=== PATIENT | female | born 1945 | race Caucasian/White ===

== ENCOUNTER 2022-05-30 16:21 | Emergency (ER) | payer MEDICARE, OTHER, SELFPAY ==
--- NOTE | ~2022-05-30 | XR_ITS ---
EXAM: XR abdomen/kub 1V DATE: 05/30/2022 17:01 HISTORY: rt side pain . COMPARISON: None available. FINDINGS: Senescent change and bibasilar lung scarring. Anastomotic sutures project over the pelvis. Normal bowel gas pattern. No organomegaly. Coarse calcification projecting over the mid right abdome n may represent gallstones. Multiple calcifications project over the renal shadows. Pelvic phlebolith s and vascular calcification. Lumbar scoliosis. Severe degenerative change in the lumbar spine. Mild bilateral hip osteoarthritis. IMPRESSION: No radiographic evidence of obstruction or ileus. Multiple opacifications project over th e renal shadows, which may represent nephroliths, or unrelated calcifications/artifact. Reviewed, dictated and finalized at location [facility]. IMPRESSION: No radiographic evidence of obstruction or ileus. Multiple opacific ations project over the renal shadows, which may represent nephroliths, or unre lated calcifications/artifact.
[2022-05-30 16:30] VITALS: BP 162/64; PULSE 77; RESP 20; TEMP 36.3; O2SAT 97
--- NOTE | 2022-05-30 17:26 | ED.GENADULT ---
HPI - General Adult General Chief complaint: Back Pain/Injury Stated complaint: back pain Source: patient Mode of arrival: ambulatory Limitations: no limitations History of Present Illness HPI narrative: Patient presents for evaluation of right flank pain since yesterday. Pain is constant, stabbing, progressively worse since the time of symptom onset, rated 9 out of 10 in severity. No radicular component. Denies any abdominal pain. She has experienced nausea without vomiting. She believes she might have a little bit of urinary hesitancy but denies any dysuria, hematuria, frequency, urgency. No fever or chills. No history of kidney stones. She initially thought it may be the start of an episode of sciatica. However she has had sciatica in the past and current symptoms are not consistent with those previously experienced with sciatica. She has a hx of lung cancer s/p radiation. States her last CT showed stability of area of concern. She is anticoagulated with coumadin for atrial fibrillation. She is on 4mg three times per week and 6mg four times per week. States her last INR was about two weeks ago and was 2.7. No additional complaints or concerns. Related Data Home Medications Medication Instructions Recorded Confirmed acetaminophen 325 mg tablet 325 mg PO Q6H PRN Mild Pain (Scale 08/31/19 05/30/22 Score 1-4) aspirin 81 mg chewable tablet 81 mg PO DAILY 08/31/19 05/30/22 warfarin 4 mg tablet 4 mg PO DAILY 08/31/19 05/30/22 pyridostigmine bromide 60 mg tablet 60 mg PO BID 11/14/20 05/30/22 Allergies Allergy/AdvReac Type Severity Reaction Status Date / Time atorvastatin Allergy Unknown unspecified Verified 05/30/22 16:35 codeine Allergy Unknown Tachycardia Verified 05/30/22 16:35 levofloxacin Allergy Unknown Stomach Verified 05/30/22 16:35 cramps Penicillins Allergy Unknown Anaphylaxis Verified 05/30/22 16:35 Review of Systems Review of Systems: CONSTITUTIONAL: Denies fever, chills, or sweats. EYES: Denies visual changes, redness, or discharge. ENT: Denies rhinorrhea, congestion, sore throat, or otalgia. CARDIOVASCULAR: Denies chest pain, palpitations, or edema. RESPIRATORY: Denies cough or dyspnea. GASTROINTESTINAL: Denies abdominal pain, nausea, vomiting, or diarrhea. GENITOURINARY: Reports urinary hesitancy. Denies dysuria, frequency, urgency or hematuria. SKIN: Denies rash or itching. MUSCULOSKELETAL: Reports right flank pain. Denies joint pain or myalgia. NEUROLOGIC: Denies headache, numbness, dizziness, or weakness. PSYCHIATRIC: Denies anxiety or depression. [facility] Past Medical History Medical History (Updated 05/30/22 @ 18:18 by FAIZAN Mckeon, ) Arthritis of hip Atrial fibrillation Hyperlipidemia Hypothyroidism Kidney stone Lung cancer Mitral valve prolapse Syncope Vitamin D deficiency Surgical History Surgical History History of mitral valve replacement Family History Family History Mother Family history of thyroid disease Patient's mother is , Onset Age: 78 Family history of malignant neoplasm Family history of Alzheimer's disease Father Diabetes mellitus Family history of malignant neoplasm, Onset Age: 62 Social History Social History Smoking packs per day: 0.75 Smoking cigarettes per day: 15.0 Smoking status: Current every day smoker Alcohol intake: never Substance use: never Living arrangements: with family Gender identity (if verbalized by the patient): Female Sexual Orientation (if Verbalized by the Patient): Straight or Heterosexual Spiritual care concerns: No Exam Narrative: GENERAL: Well-appearing but visibly uncomfortable. Well-nourished, and in no acute distress. HEAD: Normocephalic, atraumatic. EYES: PERRLA and EOMI. ENT: Nares cl
== END 2022-05-30 18:30 | disposition home or self-care (01) ==
PROVIDERS: Emergency Provider Nurse Practitioner; PCP Family Medicine
DX: N20.0 Calculus of kidney (principal); F17.210 Nicotine dependence, cigarettes, uncomplicated; M16.9 Osteoarthritis of hip, unspecified; I48.91 Unspecified atrial fibrillation; E78.5 Hyperlipidemia, unspecified; E03.9 Hypothyroidism, unspecified; I34.1 Nonrheumatic mitral (valve) prolapse; Z85.118 Personal history of other malignant neoplasm of bronchus and lung; Z95.2 Presence of prosthetic heart valve; Z79.01 Long term (current) use of anticoagulants; Z79.82 Long term (current) use of aspirin
CPT/HCPCS: 74018; 81003; 99213; G0463

== ENCOUNTER 2022-09-16 12:33 | Outpatient (CLI) | payer MEDICARE, OTHER, SELFPAY ==
[2022-09-16 20:57] LABS: Creatinine Urine 63.7 mg/dL
[2022-09-16 21:01] LABS: MALB Creatinine Ratio 174.6 mg/g (0-30); Microalbumin Urine Random 111.2 mg/L (0-16.7)
[2022-09-16 21:29] LABS: Alanine Aminotransferase 18 U/L (6-35); Albumin Level 3.9 g/dL (3.5-5.1); Alkaline Phosphatase 131 U/L (38-126); Anion Gap 5 mmol/L (8-16); Aspartate Amino Transferase 45 U/L (14-36); Bilirubin,Total 0.7 mg/dL (0.2-1.3); Blood Urea Nitrogen 15 mg/dL (7-17); Calcium 9.6 mg/dL (8.4-10.2); Carbon Dioxide 30 mmol/L (22-30); Chloride 106 mmol/L (98-107); Cholesterol 239 mg/dL (0-200); Estimated Glomerular Filt Rate > 60; Glucose 98 mg/dL (65-110); HDL Direct 35 mg/dL; Potassium 4.8 mmol/L (3.4-5.0); Sodium 141 mmol/L (137-145); Triglycerides 208 mg/dL (<150)
[2022-09-16 21:41] LABS: LDL Cholesterol Direct 144 mg/dL
[2022-09-16 21:58] LABS: Hemoglobin A1C 6.5 % (<5.7)
== END 2022-09-16 12:34 | disposition home or self-care (01) ==
LOC: ANHGOSHLAB 12:37
PROVIDERS: PCP Family Medicine; Visit Provider Nurse Practitioner
DX: E78.5 Hyperlipidemia, unspecified (principal); E11.43 Type 2 diabetes mellitus with diabetic autonomic (poly)neuropathy; Z95.4 Presence of other heart-valve replacement; E55.9 Vitamin D deficiency, unspecified
CPT/HCPCS: 36415; 80053; 80061; 82043; 82306; 83036

== ENCOUNTER 2023-04-12 11:17 | Outpatient (CLI) | payer MEDICARE, OTHER, SELFPAY ==
[2023-04-12 19:36] LABS: Vitamin D 25 Hydroxy 58.2 ng/mL
[2023-04-12 19:43] LABS: Alanine Aminotransferase 18 U/L (6-35); Albumin Level 4.1 g/dL (3.5-5.1); Alkaline Phosphatase 153 U/L (38-126); Anion Gap 8 mmol/L (8-16); Aspartate Amino Transferase 33 U/L (14-36); Bilirubin,Total 0.7 mg/dL (0.2-1.3); Blood Urea Nitrogen 15 mg/dL (7-17); Calcium 9.7 mg/dL (8.4-10.2); Carbon Dioxide 30 mmol/L (22-30); Chloride 104 mmol/L (98-107); Cholesterol 213 mg/dL (0-200); Estimated Glomerular Filt Rate 54; Glucose 104 mg/dL (65-110); HDL Direct 31 mg/dL; Sodium 142 mmol/L (137-145); Triglycerides 192 mg/dL (<150)
[2023-04-12 19:54] LABS: LDL Cholesterol Direct 139 mg/dL
[2023-04-12 20:08] LABS: Thyroid Stimulating Hormone 0.042 uIU/mL (0.465-4.680)
[2023-04-12 20:32] LABS: Hematocrit 49.1 % (37.0-47.0); Hemoglobin 15.6 g/dL (12.0-15.0); Immature Platelet Fraction Pct 17.8 % (0.9-11.2); Mean Corpuscular HGB Conc 31.8 g/dl (32-36); Mean Corpuscular Volume 97.4 fl (80-100); Mean Platelet Volume 13.7 fl (7.4-10.4); Platelet Count Result 197 k/mm3 (150-375); Red Blood Count 5.04 M/mm3 (4.2-5.4); Red Cell Distribution Width 14.3 % (11.5-14.5); White Blood Count 9.6 K/mm3 (4.5-10.0)
[2023-04-12 20:36] LABS: Creatinine Urine 60.6 mg/dL
[2023-04-12 20:48] LABS: Hemoglobin A1C 6.6 % (<5.7)
[2023-04-12 22:16] LABS: Microalbumin Urine Random 331.5 mg/L (0-16.7)
== END 2023-04-12 11:18 | disposition home or self-care (01) ==
PROVIDERS: PCP Family Medicine; Visit Provider Nurse Practitioner
DX: Z00.00 Encounter for general adult medical examination without abnormal findings (principal); E11.43 Type 2 diabetes mellitus with diabetic autonomic (poly)neuropathy; E55.9 Vitamin D deficiency, unspecified
CPT/HCPCS: 36415; 80053; 80061; 82043; 82306; 83036; 84443; 85027; 85055

== ENCOUNTER → 2023-04-28 08:43 | Outpatient (CLI) | payer MEDICARE, OTHER, SELFPAY ==
--- NOTE | ~2023-04-28 | US_ITS ---
Abdominal Sonogram: Real-time sonographic imaging of the abdomen was performed. Clinical History: Abnormal serum enzyme levels Findings: The liver appears normal with no evidence of mass lesion or bile duct dilatation. Main por vamshi vein demonstrates normal direction of flow. The spleen is normal in size without evidence of foca l lesion. The gallbladder is well distended, and contains multiple small gallstones. No gallbladder wall thickening. The common bile duct measures 4 mm. The visualized pancreas, aorta, and IVC are unr emarkable. The right kidney measures 10.4 cm in length and the left kidney measures 11.7 cm. There is no hydronephrosis or renal calculus. Right lower pole renal cyst present. Renal echogenicity is in creased. Impression: Cholelithiasis. Increased renal echogenicity suggest chronic medical renal disease. Reviewed, dictated and finalized at [facility]. Impression: Cholelithiasis. Increased renal echogenicity suggest chronic medical renal disease.
== END ==
PROVIDERS: PCP Nurse Practitioner; Visit Provider Nurse Practitioner
DX: K80.20 Calculus of gallbladder without cholecystitis without obstruction (principal); R93.429 Abnormal radiologic findings on diagnostic imaging of unspecified kidney; R74.8 Abnormal levels of other serum enzymes
CPT/HCPCS: 76700

== ENCOUNTER 2023-06-13 10:00 | Outpatient (CLI) | payer MEDICARE, OTHER, SELFPAY ==
[2023-06-13 20:27] LABS: Thyroid Stimulating Hormone 0.389 uIU/mL (0.465-4.680)
== END 2023-06-13 10:01 | disposition home or self-care (01) ==
LOC: ANHGOSHLAB 10:02
PROVIDERS: PCP Nurse Practitioner; Visit Provider Nurse Practitioner
DX: E11.43 Type 2 diabetes mellitus with diabetic autonomic (poly)neuropathy (principal); R79.89 Other specified abnormal findings of blood chemistry
CPT/HCPCS: 36415; 84443

== ENCOUNTER 2023-07-11 07:54 | Outpatient (CLI) | payer MEDICARE, OTHER, SELFPAY ==
[2023-07-11 19:18] LABS: Thyroid Stimulating Hormone 0.514 uIU/mL (0.465-4.680)
== END 2023-07-11 07:55 | disposition home or self-care (01) ==
LOC: ANHGOSHLAB 07:56
PROVIDERS: PCP Nurse Practitioner; Visit Provider Nurse Practitioner
DX: E78.5 Hyperlipidemia, unspecified (principal); R79.89 Other specified abnormal findings of blood chemistry
CPT/HCPCS: 36415; 84443

== ENCOUNTER → 2023-09-08 09:39 | Outpatient (CLI) | payer MEDICARE, OTHER, SELFPAY ==
--- NOTE | ~2023-09-08 | XR_ITS ---
XR chest 2V DATE: 09/08/2023 10:10 INDICATION: Cough for 2 weeks. History of COPD, lung cancer. Smoker. TECHNIQUE: PA and lateral views COMPARISON: 05/17/2019 2 view chest FINDINGS: There is patchy infiltrate in the right mid and both lower lung zones suggesting bilateral pneumonia. Pulmonary edema is also a consideration. There is pulmonary vascular congestion and redist ribution. Heart size appears within normal range. Status post sternotomy/coronary artery bypass graft surgery. Left-sided dual-lead pacemaker with leads overlying right atrium and right ventricle. Aortic calcification. Diffuse osteopenia. IMPRESSION: Congestive changes and right mid and bilateral lower lung infiltrates; infiltrates may be due to pulmonary edema and/or pneumonia Reviewed, dictated and finalized at location [facility]. [facility]INE INSPECTOR IMPRESSION: Congestive changes and right mid and bilateral lower lung infiltrat es; infiltrates may be due to pulmonary edema and/or pneumonia
== END ==
PROVIDERS: PCP Nurse Practitioner; Visit Provider Nurse Practitioner
DX: R05.9 Cough, unspecified (principal); J44.9 Chronic obstructive pulmonary disease, unspecified; I48.91 Unspecified atrial fibrillation; Z85.118 Personal history of other malignant neoplasm of bronchus and lung; Z87.891 Personal history of nicotine dependence; R91.8 Other nonspecific abnormal finding of lung field
CPT/HCPCS: 71046

== ENCOUNTER 2024-02-01 08:32 | Outpatient (CLI) | payer MEDICARE, OTHER, SELFPAY ==
[2024-02-01 13:02] LABS: Alanine Aminotransferase 13 U/L (6-35); Alkaline Phosphatase 122 U/L (38-126); Anion Gap 4 mmol/L (4-12); Aspartate Amino Transferase 37 U/L (14-36); Bilirubin,Total 0.6 mg/dL (0.2-1.3); Blood Urea Nitrogen 14 mg/dL (7-17); Calcium 9.7 mg/dL (8.4-10.2); Carbon Dioxide 30 mmol/L (22-30); Chloride 107 mmol/L (98-107); Cholesterol 186 mg/dL (0-200); Estimated Glomerular Filt Rate > 60; Glucose 101 mg/dL (65-110); HDL Direct 35 mg/dL; Potassium 4.6 mmol/L (3.4-5.0); Sodium 141 mmol/L (137-145); Triglycerides 143 mg/dL (<150)
[2024-02-01 13:17] LABS: LDL Cholesterol Direct 131 mg/dL
[2024-02-01 13:27] LABS: Vitamin D 25 Hydroxy 66.3 ng/mL
[2024-02-01 13:30] LABS: Thyroid Stimulating Hormone 0.987 uIU/mL (0.465-4.680)
[2024-02-01 13:55] LABS: Hemoglobin A1C 5.9 % (<5.7)
[2024-02-01 13:59] LABS: Microalbumin Urine Random 110.7 mg/L (0-16.7)
[2024-02-01 14:07] LABS: Creatinine Urine 110.6 mg/dL; MALB Creatinine Ratio 100.1 mg/g (0-30)
== END 2024-02-01 08:33 | disposition home or self-care (01) ==
PROVIDERS: PCP Nurse Practitioner; Visit Provider Nurse Practitioner
DX: E78.5 Hyperlipidemia, unspecified (principal); E03.9 Hypothyroidism, unspecified; E11.43 Type 2 diabetes mellitus with diabetic autonomic (poly)neuropathy; E55.9 Vitamin D deficiency, unspecified
CPT/HCPCS: 36415; 80053; 80061; 82043; 82306; 83036; 84443

== ENCOUNTER 2024-06-15 08:23 | Outpatient (CLI) | payer MEDICARE, OTHER, SELFPAY ==
[2024-06-15 18:02] LABS: Hematocrit 43.4 % (37.0-47.0); Hemoglobin 13.7 g/dL (12.0-15.0); Mean Corpuscular HGB Conc 31.6 g/dl (32-36); Mean Corpuscular Hemoglobin 31.2 pg (26-34); Mean Corpuscular Volume 98.9 fl (80-100); Mean Platelet Volume 12.8 fl (7.4-10.4); Platelet Count Result 211 k/mm3 (150-375); Red Blood Count 4.39 M/mm3 (4.2-5.4); Red Cell Distribution Width 14.8 % (11.5-14.5); White Blood Count 8.5 K/mm3 (4.5-10.0)
[2024-06-15 18:03] LABS: Alanine Aminotransferase 17 U/L (6-35); Albumin Level 3.9 g/dL (3.5-5.1); Alkaline Phosphatase 142 U/L (38-126); Anion Gap 5 mmol/L (4-12); Aspartate Amino Transferase 32 U/L (14-36); Bilirubin,Total 0.4 mg/dL (0.2-1.3); Blood Urea Nitrogen 17 mg/dL (7-17); Calcium 9.6 mg/dL (8.4-10.2); Carbon Dioxide 31 mmol/L (22-30); Chloride 104 mmol/L (98-107); Cholesterol 202 mg/dL (0-200); Estimated Glomerular Filt Rate > 60; Glucose 101 mg/dL (65-110); HDL Direct 38 mg/dL; Potassium 4.4 mmol/L (3.4-5.0); Sodium 140 mmol/L (137-145); Triglycerides 132 mg/dL (<150)
[2024-06-15 18:15] LABS: LDL Cholesterol Direct 124 mg/dL
[2024-06-15 18:41] LABS: Creatinine Urine 77.4 mg/dL
[2024-06-15 18:44] LABS: MALB Creatinine Ratio 64.2 mg/g (0-30); Microalbumin Urine Random 49.7 mg/L (0-16.7)
[2024-06-15 18:47] LABS: Free T4 Free Thyroxine 1.59 ng/mL (0.78-2.19); Vitamin D 25 Hydroxy 72.9 ng/mL
[2024-06-15 21:01] LABS: Hemoglobin A1C 6.7 % (<5.7)
== END 2024-06-15 08:24 | disposition home or self-care (01) ==
PROVIDERS: PCP Nurse Practitioner; Visit Provider Nurse Practitioner
DX: I10 Essential (primary) hypertension (principal); E11.9 Type 2 diabetes mellitus without complications; E03.9 Hypothyroidism, unspecified; E55.9 Vitamin D deficiency, unspecified
CPT/HCPCS: 36415; 80053; 80061; 82043; 82306; 83036; 84439; 84443; 85027

== ENCOUNTER 2024-07-30 14:09 | Outpatient (CLI) | payer MEDICARE, OTHER, SELFPAY ==
[2024-07-30 20:27] LABS: Free T4 Free Thyroxine 1.37 ng/dL (0.78-2.19)
[2024-07-30 21:00] LABS: Thyroid Stimulating Hormone 0.705 uIU/mL (0.465-4.680)
== END 2024-07-30 14:10 | disposition home or self-care (01) ==
LOC: ANHGOSHLAB 14:11
PROVIDERS: PCP Nurse Practitioner; Visit Provider Nurse Practitioner
DX: E05.90 Thyrotoxicosis, unspecified without thyrotoxic crisis or storm (principal); R79.89 Other specified abnormal findings of blood chemistry
CPT/HCPCS: 36415; 84439; 84443

== ENCOUNTER 2024-10-24 09:01 | Outpatient (CLI) | payer MEDICARE, OTHER, SELFPAY ==
--- OUTSIDE RECORDS SUMMARY | 2024-10-24 09:41 | XMS_ITS | Encounter Summary ---
Author Organization [facility] Facility Care Team Providers Care Explosion Welder Name Role Phone Jessica Jerez Primary Care Provider [phone] Yoanna Lim LPN Unavailable [phone] Dexter Hines MD Primary Care Provider [phone] Jessica Jerez Primary Care Provider [phone] Dexter Hines MD Primary Care Provider [phone] Kaitlin Patterson MD Unavailable [phone] Dylon Cruz MD Unavailable [phone] Dylon Cruz MD Unavailable [phone] Dexter Hines MD Primary Care Provider [phone] Andriy Herndon MD PhD Unavailable [phone] Eder Jaffe MD Unavailable [phone] Wagner Villatoro MD Unavailable [phone] Fazal Baird MD Unavailable [phone] Fazal Cordero MD Primary Care Provider Hayden Miller DO Primary Care Provider [phone] Christopher Dubon MD Unavailable [phone] Wagner Villatoro MD Unavailable [phone] Eder Jaffe MD Unavailable Andriy Herndon MD PhD Unavailable Clifton De MD Unavailable Jacob Ko MD Unavailable [phone] Encounter Details Date Type Department Care Team (Latest Contact Info) Description 07/04/2018 Orders Only [facility] ProviderBairon MD [address] [place] [id number] Social History Tobacco Use Types Packs/Day Years Used Date Smoking Tobacco: Never Assessed Comments Unknown Sex and Gender Information Value Date Recorded Sex Assigned at Not on file Legal Sex Female 8:24 AM CDT Gender Identity Not on file Sexual Orientation Straight 04/11/2020 3: 04 PM CDT documented as of this encounter Plan of Treatment Not on file documented as of this encounter Procedures Procedure Name Priority Date/Time Associated Diagnosis Comments CARDIOLOGY REPORT 07/04/2018 12: 00 AM MEDICAL POLICY SPECIALIST documented in this encounter Results * CARDIOLOGY REPORT (07/04/2018 12:00 AM MEDICAL POLICY SPECIALIST) Anatomical Region Laterality Modality Other Narrative 07/04/2018 12:00 AM MEDICAL POLICY SPECIALIST Ordered by an unspecified provider. Historical Provider [facility] HANNA ESPARZA Final Result documented in this encounter Visit Diagnoses Not on filedocumented in this encounter Additional Health Concerns Infection Onset Date Last Indicated Resolved Time Ring Surveillance Comment:07/07/24 admitted to [facility] ring surveillance room. ML 07/12/24 negative [facility] result. ML 07/07/2024 07/07/2024 07/12/2024 1:[address] documented as of this encounter Care Teams Explosion Welder Relationship Specialty Start Date End Date Jessica Jerez PA [address] [place] [address] PCP - General Critical Care Med 07/06/18 11/21/18 Dexter Hines MD [address] [place] [address] PCP - General 11/22/18 12/21/18 Jessica Jerez PA [address] [place] [address] PCP - General Critical Care Med 12/22/18 01/22/19 Dexter Hines MD [address] [place] [address] PCP - General Internal Medicine 01/23/19 07/04/19 Dexter Hines MD [address] [place] [address] PCP - General 07/28/19 04/22/22 Fazal Cordero MD [address] [facility] [address] PCP - General Orthopedic Surgery 04/23/22 05/05/22 Hayden Miller DO [address] [place] [address] PCP - General Family Medicine 05/06/22 Yoanna Lim, LINEMAN [address] [place] [address] [employer] 07/06/18 07/06/18 Kaitlin Patterson MD [address] [place] [address] Aircraft Fueler Interventional Cardiology 05/22/19 08/11/23 Dylon Cruz MD [address] [place] [address] Music Library Assistant Medical Oncology 06/27/19 10/14/21 Dylon Cruz MD [address] [place] [address] Medical Oncologist/Hematologis t Medical Oncology 06/27/19 10/14/21 Andriy Herndon MD PhD [address] [place] [address] MEDICAL ONCOLOGY, [address] [address] Consulting Physician Medical Oncology 10/15/21 4 Eder Jaffe MD [address] [facility] [address] [place] [address] [place] [address] Consulting Physician Pulmonary Disease 10/15/21 Wagner Villatoro MD [facility] [facility] [address] [place] [address] [place] [address] Radiation Oncologist Radiation Oncology 10/21/21 Fazal Baird MD [address] [place] [address] Consulting Physician Cardiothoracic Surgery 10/21/21 Christopher Dubon MD [address] [facility] [address] [place] [address] [address] Consulting Physician Cardiology 08/12/23 Wagner Villatoro MD [address] [place] [address] Radiation Oncologist Radiation Oncology 10/25/23 Eder Jaffe MD [address] [facility] [address] [place] [address] [place] [address] Surgeon Pulmonary Disease 01/10/24 Andriy Herndon MD PhD [address] [place] [address] Consulting Physician Medical Oncology 05/22/24 Clifton De MD [address] [place] [id number] Consulting Physician Pain Management 05/25/24 Jacob Ko MD [address] [facility] [address] [place] [address] [address] Consulting Physician Cardiology 05/25/24 documented as of this encounter
--- OUTSIDE RECORDS SUMMARY | 2024-10-24 09:41 | XMS_ITS | Clinical Summary ---
Author Organization [facility] Address [address] [place] [address] Care Team Providers Care Mechanical Service Technician Name Role Phone Eder Jaffe MD Unavailable [phone] Fazal Baird MD Unavailable [phone] Hayden Miller DO Primary Care Provider [phone] Christopher Dubon MD Unavailable Wagner Villatoro MD Unavailable [phone] Eder Jaffe MD Unavailable [phone] Andriy Herndon MD PhD Unavailable [phone] Clifton De MD Unavailable Jacob Ko MD Unavailable [phone] Allergies Active Allergy Reactions Criticality Noted Date Comments Atorvastatin Muscle pain Medium 01/03/2019 Codeine Phosphate Palpitations Low 01/03/2019 Levofloxacin Stomach upset Low 07/02/2018 Midodrine Itching,Mental statu s changes Medium 05/23/2020 Penicillins Anaphylaxis High 10/07/2016 Anaphylaxis Quinine Sulfate Other (See comments) Low 01/03/2019 Reaction when pt. Was a kid mother told her to stay away from it Medications pantoprazole DR (PROTONIX) 40 mg EC tablet Take 1 tablet (40 mg total) by mouth daily with dinner Active aspirin 81 mg enteric coated tabletIndications :Hold until after biopsy and instructed to start by Interventional Radiology Take 1 tablet (81 mg total) by mouth daily with dinner Active calcium carbonate-vitamin D3 1,500 mg (600mg elemental) -800 unit per tablet Take 1 tablet by mouth daily Active polyethylene glycol (MIRALAX) 17 gram packetIndications :constipation Take 1 packet (17 g total) by mouth daily Active lancets 33 gauge [facility] OneTouch Delica Plus Lancet 33 gauge USE TO TEST ONCE A DAY Active blood glucose diagnostic (Silent Circle Verio test strips) stripIndications: Diabetes Mellitus,Patient should stop the med form in 2 days before the biopsy and restart 2 days after Active acetaminophen (TYLENOL) 325 mg tablet Take 1 tablet (325 mg total) by mouth every 4 (four) hours as needed for pain Active albuterol HFA (PROVENTIL HFA,VENTOLIN HFA,PROAIR HFA) 90 mcg/actuation inhaler Inhale 2 puffs every 6 (six) hours as needed for wheezing 1 each 10/05/192024 Active pyridoxine (VITAMIN B-6) 500 mg tablet Take 1 tablet (500 mg total) by mouth daily Active nebivoloL (BYSTOLIC) 5 mg tabletIndications :Atrial fibrillation, unspecified type (HCC),Essential hypertension,Pace maker,EKG abnormalities Take 1 tablet (5 mg total) by mouth daily 90 tablet 3 01/26/20 24 2024 Active levothyroxine (SYNTHROID) 88 mcg tablet Take 1 tablet (88 mcg total) by mouth cloth laminating supervisor before breakfast Active ezetimibe (ZETIA) 10 mg tablet Take 1 tablet (10 mg total) by mouth daily 30 tablet 11 07/18/20 24 2024 Active dexAMETHasone oral liquid 0.5 mg/5 mL Take 10 mL (1 mg total) by mouth 4 (four) times a day 200 mL 07/30/20 24 Active enoxaparin (LOVENOX) 60 mg/0.6 mL syringe Inject 0.6 mL (60 mg total) under the skin every 12 (twelve) hours starting 2 days before procedure, stopping 12 hours before procedures 12 mL 3 08/04/20 24 Active warfarin (COUMADIN) 5 mg tabletIndications :atrial fibrillation Take 1 tablet (5 mg total) by mouth daily 6mg Tuesday, Tuesday, and Tuesday and rest of the days 5mg 90 tablet 3 10/08/19 25 2025 Active warfarin (COUMADIN) 5 mg tabletIndications :atrial fibrillation Take 1 tablet (5 mg total) by mouth daily 30 tablet 07/11/20 24 2024 Discontinued Active Problems Problem Noted Date Diagnosed Date Acute pulmonary embolism, un specified pulmonary embolism type, unspecified whether acute cor pulmonale present 07/06/2024 SSS (sick sinus syndrome) (CMS/HCC) 05/22/2024 Personal history of radiation therapy 01/03/2024 History of lung cancer 08/11/2023 Mediastinal adenopathy 08/11/2023 Coronary artery disease invo lving northway coronary artery of northway heart without angina pectoris 07/03/2023 Orthostatic syncope 05/17/2023 Benign neoplasm of cerebral meninges 04/09/2022 Diverticulitis 12/14/2021 High cholesterol 12/14/2021 Abnormal PET scan of head 11/03/2021 Malignant neoplasm of upper lobe of right lung 0 11/03/2021 Cancer Staging:Clinical stage from 09/28/2023:Stage IIIA(rcT1b, cN2, cM0) - Signed by Wagner Villatoro MD on 09/28/2023 Malignant neoplasm of upper lobe, bronchus or kari ng 09/28/2021 Syncope and collapse 09/22/2021 Syncope 09/21/2021 EKG abnormalities 09/21/2021 Dependence on nicotine from cigarettes 2 Chest x-ray abnormality 09/21/2021 Inflammation of sacroiliac joint 04/01/2020 Polyneuropathy 09/20/2019 Polycythemia vera 05/21/2019 Pacemaker 02/20/2019 Assessment & Plan (09/02/2020 1:47 PM RETAIL BUSINESS DEVELOPMENT MANAGER): Check today shows normal function. Underlying rhythm controlled AFib. 20% V paced 100% mode switch. Assessment & Plan (09/04/2019 1:52 PM RETAIL BUSINESS DEVELOPMENT MANAGER): Underlying rhythm today 2-1 flutter ventricular rate 110 beats per minute. Histograms during mode switch show controlled rate 100% mode switch. Excellent lead function. No other arrhythmias. Battery 5 years Assessment & Plan (02/20/2019 3:10 PM CDT): Check today shows normal function. Better life 6 years excellent lead function. 6% V pacing Anticoagulation management encounter 02/20/2019 Assessment & Plan (09/02/2020 1:50 PM RETAIL BUSINESS DEVELOPMENT MANAGER): Continue Coumadin. No bleeding Assessment & Plan (09/04/2019 2:03 PM RETAIL BUSINESS DEVELOPMENT MANAGER): Continue Coumadin. Assessment & Plan (02/20/2019 3:11 PM CDT): Continue Coumadin for thromboembolic risk reduction Atrial fibrillation ([facility]) 12/07/2018 Assessment & Plan (09/02/2020 1:47 PM RETAIL BUSINESS DEVELOPMENT MANAGER): Persistent. Histogram show excellent rate control. Continue Bystolic continue Coumadin Assessment & Plan (09/04/2019 1:55 PM RETAIL BUSINESS DEVELOPMENT MANAGER): Permanent rate controlled. Would not make any efforts to achieve her maintain sinus rhythm Assessment & Plan (02/20/2019 3:10 PM CDT): Typical flutter ablated. Atypical flutter persistent and rate controlled by histograms Chronic kidney disease, stage III (moderate) Hypothyroidism 05/19/2018 Assessment & Plan (01/01/2020 1:53 PM CDT): Will check TSH and free T4 Will adjust dose of Levothyroxine accordingly . If there is a need to make changes, will recheck levels in 2-3 months. Instructions to patient on taking medication properly : in the morning, on an empty stomach , 1 h part from food and/or other meds. Assessment & Plan (09/11/2019 10:07 AM RETAIL BUSINESS DEVELOPMENT MANAGER): Goal of treatment is a TSH within range, around 1-4 Your goal of treatment is to keep TSH , T3 and T4 within normal range. Brand name is strongly recommended, due to the fact that different generics are not bioequivalent. Will check TFT's today and will adjust dose of LT4 accordingly; will send rx for Synthroid. I also explained to pt how , her hypothyroidism is not responsible for her fainting. Obesity (BMI 30.0-34.9) 05/19/2018 Type 2 diabetes mellitus wit h diabetic chronic kidney disease 05/19/2018 Assessment & Plan (01/01/2020 1:54 PM CDT): Off of meds Check hba1c, lipids, microalbumin Obstructive sleep apnea 12/27/2016 Overview (01/03/2019): obstructive sleep apnea on CPAP therapy. Assessment & Plan (11/02/2023 8:40 AM RETAIL BUSINESS DEVELOPMENT MANAGER): The patient continue to wear her CPAP at 12 cm water pressure while sleeping. Her DME is [employer]. They are going to bring the SmartCard to [employer] for a download. Assessment & Plan (10/27/2022 1:59 PM RETAIL BUSINESS DEVELOPMENT MANAGER): Due to the patient having difficulty with the mask leaking while she sleeps I will decrease the patient's CPAP pressure to 12 cm water pressure while sleeping. Her DME is [employer]. Assessment & Plan (10/26/2021 2:06 PM RETAIL BUSINESS DEVELOPMENT MANAGER): The patient will continue with CPAP therapy at 14 cm water pressure. Patient denied need for supplies. DME company [employer] Assessment & Plan (08/25/2021 1:38 PM RETAIL BUSINESS DEVELOPMENT MANAGER): Patient continue to wear her CPAP at 14 cm water pressure while sleeping. Her DME is [facility]. The patient is going to receive a new CPAP on Tuesday. Assessment & Plan (03/23/2021 9:16 AM CDT): The patient will continue with CPAP therapy at 14 cm water pressure to treat obstructive sleep apnea. I have ordered the patient a new CPAP machine at 14 cm water pressure with heated humidity and a full set of supplies. The DME is [facility] [employer]. The patient and I also discussed the nocturnal polysomnogram with split night protocol and an in-home nocturnal polysomnogram as an option if required by insurance to recertify for CPAP therapy. Both procedures were detailed in depth. The patient is agreeable to follow through with recommendation if required by insurance. Coronary atherosclerosis 03/12/2016 Essential hypertension 03/12/2016 Assessment & Plan (09/02/2020 1:50 PM RETAIL BUSINESS DEVELOPMENT MANAGER): Well controlled Assessment & Plan (02/20/2019 3:19 PM CDT): Likely having symptomatic hypotension at times. 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 Pacemaker confirms no arrhythmias. Again informed patient to check blood pressure on extended episodes. Polycythemia 06/06/2019 09/21/2021 Shortness of breath 01/03/2019 09/21/19 22 Encounters Date Type Department Care Team Description 09/05/2024 8:00 AM RETAIL BUSINESS DEVELOPMENT MANAGER Ancillary Procedure [facility] [address] [place] [address] Pacemaker; Permanent atrial fibrillation (CMS/HCC) ([facility]); SSS (sick sinus syndrome) (CMS/HCC) (HCC) 08/27/2024 Telephone [facility] [address] [place] [address] Kathy Donohue MD 08/27/2024 Anticoagulation Telephone Call [facility] [address] [place] [address] [phone] Kathy Donohue MD Atrial fibrillation (CMS/HCC) (HCC) (Primary Dx) 08/23/2024 7:55 AM RETAIL BUSINESS DEVELOPMENT MANAGER Lab [facility] [address] [place] [address] Permanent atrial fibrillation (CMS/HCC) (HCC) 08/13/2024 Telephone [facility] [address] [place] [address] [place] [address] [phone] Kathy Donohue MD 08/08/2024 Telephone [facility] [address] [place] [phone] Kathy Donohue MD 08/08/2024 Anticoagulation Visit [facility] [address] [place] [phone] Mildred Tapiasa DE Atrial fibrillation (CMS/HCC) (HCC) (Primary Dx) 08/07/2024 9:15 AM RETAIL BUSINESS DEVELOPMENT MANAGER Office Visit [facility] [address] [place] [address] [phone] Andriy Herndon MD PhD Squamous cell carcinoma lung, right (HCC) (Primary Dx) 08/07/2024 8:45 AM RETAIL BUSINESS DEVELOPMENT MANAGER Clinical Support [facility] at [address] [phone] Squamous cell carcinoma lung, right (HCC); Permanent atrial fibrillation (CMS/HCC) (HCC); Anticoagulation management encounter 08/07/2024 Telephone [facility] [address] [place] [phone] Cassie Mccollum CMA 08/04/2024 Orders Only [facility] [address] [place] [phone] Kathy Donohue MD 08/02/2024 Telephone [facility] [address] [place] [phone] Kathy Donohue MD [facility] 08/02/2024 Anticoagulation Visit [facility] [address] [place] [address] Christina Tapia MA Atrial fibrillation (CMS/HCC) ([facility]) (Primary Dx) 08/02/2024 Telephone [facility] [address] [place] [address] Kathy Donohue MD from Last 3 Months Immunizations Immunization Administration Dates Next Due Influenza, Quadrivalent, Hig h Dose, Preservative Free, Intrr 05/16/2020 Influenza, Quadrivalent, Spl it, Preservative Free, Intramuscular 06/05/2016,07/11/2015 Influenza, Trivalent, Preservative Free, Intramu scular 04/29/2015 Influenza, Unspecified 06/08/2007 Pneumococcal Conjugate PCV 13 06/22/2018 Pneumococcal Polysaccharide PPV23 09/26/2014 Tdap 06/22/2018 ZOSTER LIVE 10/11/2013 Surgical History Surgery Date Site/Laterality Comments APPENDECTOMY TUBAL LIGATION Bilateral CARDIAC ELECTROPHYSIOLOGY MAPPING AND ABLATION 08/29/2017 - 08/28/2018 Not successful. COLECTOMY Diverticulitis MITRAL VALVE REPLACEMENT 08/29/2014 - 08/28/2015 INSERT / REPLACE / REMOVE PACEMAKER 07/04/2018 [employer] CARDIAC CATHETERIZATION 08/29/2014 - 08/28/2015 PORT PLACEMENT CHEST >5 YEARS 10/17/2023 N/A CARDIAC SURGERY CATARACT EXTRACTION CORONARY ARTERY BYPASS GRAFT 2014 CARDIAC VALVE REPLACEMENT 2014 Medical History Medical History Date Comments Exercise hypoxemia Dyspnea CAD (coronary artery disease) Dyslipidemia Hypertension Hypothyroidism COPD (chronic obstructive pu lmonary disease) ([facility]) Mild. Well controlled. Doesn 't need inhaler. Hyperlipidemia Covid-2019 Lung cancer (HCC) 2021 s/p Radiation HL (hearing loss) CHF (congestive heart failur e) (CMS/HCC) (HCC) Mitral valve prolapse Diverticulitis of colon Depression Sleep apnea + CPAP Delayed emergence from general anesthesia Slow to wake after colonoscopy Motion sickness PONV (postoperative nausea and vomiting) 1957 After Appy Afib (CMS/HCC) ([facility]) Chronic. Ed jamestriston Hugo GERD (gastroesophageal reflux disease) Controlled with Protonix Constipation Type 2 diabetes mellitus ([facility]) c ontrolling with diet. Syncopal episodes Monthly. Andrew byrd Neuropathy. Has seen Neurology and completed autonomic testing. Controls with Compression stockings and increased salt intake. Neuropathy (CMS/[facility]) bilateral l egs. Leg cramps At high risk for falls Autoimmune disease ([facility]/HCC) ([facility]) 2019 Family History Medical History Relation Name Comments Thyroid disease Brother 1 Hearing loss Brother 2 David Hwang Heart attack Brother 2 David Hwang Cancer Father Vinis Diabetes Father Vinis Heart attack Father's Brother 1 Juana Hwang Heart attack Father's Brother 2 Leonidas Hwang Heart attack Father's Brother 3 Drake Hwang Hearing loss Maternal Grandfather Karthik Gabriel Alzheimer's disease Mother Anahi Thyroid disease Mother Anahi Heart attack Paternal Grandfather Fazal Hwang Alzheimer's disease Sister Marcy Cancer Sister Marcy Diabetes Sister Marcy Relation Name Status Comments Brother 1 Brother 2 David Hwang Father Vinis Father's Brother 1 Juana Hwang Father's Brother 2 Leonidas Hwang Father's Brother 3 Drake Hwang Maternal Grandfather Karthik Gabriel Mother Anahi Paternal Grandfather Fazal Hwang Sister Marcy Social History Tobacco Use Types Packs/Day Years Used Date Smoking Tobacco: Every Day Cigarettes 0.3 106.4 Started: 06/12/1971 Passive Smoke Exposure: Current Smokeless Tobacco: Never Tobacco Cessation:Ready to Q uit: Yes; Counseling Given: Not Answered Alcohol Use Standard Drinks/Week Comments Not Currently 0 (1 standard drink = 0.6 oz pur e alcohol) [facility] Utilities Answer Date Recorded In the past 12 months has [employer], gas, oil, or water OR Productivity threatened to shut off services in your home? No 07/09/2024 Social Connection and Isolat ion Panel [NHANES] Answer Date Recorded In a typical week, how many times do you talk on the phone with family, friends, or neighbors? More than three times a week 07/09/2024 How often do you get togethe r with friends or relatives? More than three times a week 07/09/2024 How often do you attend chur ch or religion services? More than 4 times per year 07/09/2024 Do you belong to any clubs o r organizations such as congregational groups, unions, fraternal or athletic groups, or school groups? No 07/09/2024 How often do you attend meet ings of the clubs or organizations you belong to? Never 07/09/2024 Are you , , di vorced, , never , or living with a partner? 07/09/2024 AUDIT-C Answer Date Recorded Q1: How often do you have a drink containing alcohol? Never 08/07/2024 Q2: How many drinks containi ng alcohol do you have on a typical day when you are drinking? Patient does not drink Frequency of Binge Drinking Not on file 07/29 Overall Financial Resource Strain (CARDIA) Answe r Date Recorded How hard is it for you to pa y for the very basics like food, housing, medical care, and heating? Not hard at all 07/09/2024 PHQ-2 Answer Date Recorded PHQ-2 Total Score (If total score is 3 or more points, staff should administer the PHQ-9) 0 01/01/2020 Hunger Vital Sign Answer Date Recorded Within the past 12 months, y ou worried that your food would run out before you got the money to buy more. Never true 07/09/20 24 Within the past 12 months, t he food you bought just didn't last and you didn't have money to get more. Never true 07/09/2024 PRAPARE - Transportation Answer Date Re corded In the past 12 months, has l ack of transportation kept you from medical appointments or from getting medications? No 06/29 In the past 12 months, has l ack of transportation kept you from meetings, work, or from getting things needed for daily living? No 07/09/2024 Housing Stability Vital Sign Answer Rodney e Recorded In the last 12 months, was t here a time when you were not able to pay the mortgage or rent on time? No 07/09/2024 In the past 12 months, how m any times have you moved where you were living? 0 07/09/2024 At any time in the past 12 m [facility], were you homeless or living in a correction (including now)? No 07/09/2024 Personal Safety Answer Date Recorded Have you ever been in or are you currently in a harmful physical or emotional relationship or is someone making you feel afraid or unsafe? Denies 07/06/2024 Comments No Sex and Gender Information Value Date Recorded Sex Assigned at Not on file Legal Sex Female 8:24 AM CDT Gender Identity Not on file Sexual Orientation Straight 04/11/2020 3: 04 PM CDT Obstetrics History Last Filed Vital Signs Vital Sign Reading Time Taken Comments Blood Pressure 146/85 08/07/2024 9:16 AM RETAIL BUSINESS DEVELOPMENT MANAGER Pulse 64 08/07/2024 9:16 AM RETAIL BUSINESS DEVELOPMENT MANAGER Temperature 36.7 C (98 F) 08/07/2024 9:16 AM RETAIL BUSINESS DEVELOPMENT MANAGER Respiratory Rate 18 08/07/2024 9:16 AM RETAIL BUSINESS DEVELOPMENT MANAGER Oxygen Saturation 95% 08/07/2024 9:16 AM RETAIL BUSINESS DEVELOPMENT MANAGER Inhaled Oxygen Concentration - - Weight 63.2 kg (139 lb 6.4 oz) 08/07/2024 9:16 A M RETAIL BUSINESS DEVELOPMENT MANAGER Height 149.9 cm (4' 11 ) 07/06/2024 5:18 PM RETAIL BUSINESS DEVELOPMENT MANAGER Body Mass Index 28.16 07/06/2024 5:18 PM RETAIL BUSINESS DEVELOPMENT MANAGER Plan of Treatment Health Maintenance Due Date Last Done Comments Hepatitis C Screening 1945 Osteoporosis Screening-Bone Density Scan 1945 Dilated Eye Exam 1945 Hepatitis B Screening 1965 Well Visit 65+ 2012 Zoster Vaccine (1 of 2) 12/06/2013 10/11/2013 Hemoglobin A1C 07/04/2020 01/02/2020, 04/30, 05/22/2018, Additional history exists Depression Screening 12/31/2020 01/01/2020, 09/11/19 20 Foot Exam 12/31/2020 01/01/2020 Albumin Creatinine Ratio, Urine 01/01/2021 0 Influenza Vaccine (#1) 2024 0, 06/05/2016, 07/11/2015, Additional history exists Lipid Panel 01/25/2025 01/26/2024, 08/0 11/2020, 01/02/2020, Additional history exists Fall Risk Assessment 07/11/2025 07/11/2024, 12/01/19 22 eGFR 08/07/2025 08/07/2024, 06/29, 07/11/2024, Additional history exists DTaP/Tdap/Td Vaccine (2 - Td or Tdap) 06/22/2028 06/22/2018 Pneumococcal vaccine 65+ Completed 06/22/2018, 08/30 Medical Devices Implanted Type Area Belt Cutter Device Identifier Shelf Expiration Date Model / Serial / Lot Lead (Rv)-07/04/2018 Implanted:01/2018 by Kaitlin Patterson MD (Quantity not on file) Lead Heart [employer] [id number] / [id number] / Lead (Ra)-07/04/2018 Implanted:01/2018 by Kaitlin Patterson MD (Quantity not on file) Lead Heart [employer] [id number]/45 / [id number] / Pacemaker-07/04-[employer] Implanted:01/2018 by Kaitlin Patterson MD (Quantity not on file) Pacemaker Left: Chest [employer] ESSENTIO [id number] / [id number] / Mitral Valve-06/24/20 15 Implanted:05/30 by Fazal Baird MD (Quantity not on file) Mitral Valve [employer] [id number] / [id number] / [employer] Xcela Power Port 8fr [id number] - [id number] Implanted:Qty: 1 on 10/17/[address] [facility] [employer] 07/02/2028 [id number] / / [id number] Procedures Procedure Name Priority Date/Time Associated Diagnosis Comments PROTIME-INR Routine 08/23/2024 8:06 AM RETAIL BUSINESS DEVELOPMENT MANAGER Permanent atrial fibrillation (CMS/HCC) (HCC) EGFR Routine 08/07/2024 8:51 AM RETAIL BUSINESS DEVELOPMENT MANAGER Squamous cell carcinoma lung, right (HCC) DIFFERENTIAL AUTO Routine 08/07/2024 8:5 1 AM RETAIL BUSINESS DEVELOPMENT MANAGER Squamous cell carcinoma lung, right (HCC) PROTIME-INR Routine 08/07/2024 8:51 AM RETAIL BUSINESS DEVELOPMENT MANAGER Permanent atrial fibrillation (CMS/HCC) (HCC) Anticoagulation management encounter CBC WITH AUTO DIFFERENTIAL Routine 08/07/2024 8:51 AM RETAIL BUSINESS DEVELOPMENT MANAGER Squamous cell carcinoma lung, right (HCC) COMPREHENSIVE METABOLIC PANEL Routine 08/07/2024 8:51 AM RETAIL BUSINESS DEVELOPMENT MANAGER Squamous cell carcinoma lung, right (HCC) LIPID PANEL Routine 01/26/2024 10:02 AM CDT Coronary artery disease involving northway coronary artery of northway heart without angina pectoris Dyslipidemia HEMOGLOBIN A1C Routine 01/02/2020 7:36 AM CDT Type 2 diabetes mellitus with stage 3 chronic kidney disease, without long-term current use of insulin ([facility]/HCC) ALBUMIN CREATININE RATIO, URINE Routine 01/02/2020 7:36 AM CDT from Last 3 Months or Most Recently Relevant to Health Maintenance Results * (ABNORMAL) Protime-INR (08/23/2024 8:06 AM RETAIL BUSINESS DEVELOPMENT MANAGER) PT 28.4(H) 12.0 - 14.6 sec Comment: Ref Range High Testing performed by: [facility], [address] [place] [address]., [id number] INR 2.7(H) 0.9 - 1.2 FRANCISCO MERINO Comment: Ref Range High Interpretive data Oral anticoagulant therapeutic ranges: Venous thromboembolism prophylaxis or treatment: 2.0-3.0 CARDIOLOGY Standard range: 2.0-3.0 High-intensity range: 2.5-3.5 Refer to indication-specific guidelines for appropriate target ranges for prosthetic heart valve replacement. Current interpretive data was last revised on 2019. Testing performed by: [facility], [address] [place] [address]., [id number] Blood 08/23/2024 8:06 AM RETAIL BUSINESS DEVELOPMENT MANAGER 08/23/2024 8:42 AM RETAIL BUSINESS DEVELOPMENT MANAGER us Kathy Donohue MD LAB BLOOD ORDERABL ES Final Result FRANCISCO MERINO [address] [facility] [place] [address] * eGFR (08/07/2024 8:51 AM RETAIL BUSINESS DEVELOPMENT MANAGER) eGFR 66 >=60 mL/min/1. 73 m2 Comment: Interpretive Data Reference Interval Normal >/= 90 mL/min/1.73m2 Mildly decreased* 60 - 89 mL/min/1.73m2 Mildly to moderately decreased 45 - 59 mL/min/1.73m2 Moderately to severely decreased 30 - 44 mL/min/1.73m2 Severely decreased 15 - 29 mL/min/1.73m2 Kidney Failure < 15 mL/min/1.73m2 *Relative to young adult level Estimated glomerular filtration rate is determined by the 2020 CKD-EPI equation recommended by the National Kidney Foundation (A Unifying Approach to GFR Estimation: Recommendations of the NKF-ASK Task Force on Reassessing the Inclusion of Race in Diagnosing Kidney Disease, JASN 2020). The CKD-EPI equation should not be used for patients with unstable renal function and has not been validated in children and those over 70. Current interpretive data was last reviewed 2021. Testing performed by: [address] [address] Blood 08/07/2024 8:51 AM RETAIL BUSINESS DEVELOPMENT MANAGER 08/07/2024 8:56 AM RETAIL BUSINESS DEVELOPMENT MANAGER us Andriy Herndon MD PhD LAB BLOOD ORDERABLES Final Result [facility] [address] [facility] Department [place] [address] * Differential, auto (08/07/2024 8:51 AM RETAIL BUSINESS DEVELOPMENT MANAGER) Neutrophil abs 6.2 1.5 - 6.5 K/cumm Comment:Testing performed by : [address] [address] Imm gran abs 0.0 0.0 - 0.1 K/cumm [facility] Comment:Testing performed by : [address] [address] Lymphocyte abs 1.5 0.8 - 3.3 K/cumm [place] Comment:Testing performed by : [address] [address] Monocyte abs 0.7 0.2 - 0.8 K/cumm [facility] Comment:Testing performed by : [address] [address] Eosinophil abs 0.1 0.0 - 0.5 K/cumm [facility] Comment:Testing performed by : [address], [place]., [address] Basophil abs 0.1 0.0 - 0.1 K/cumm [facility] Comment:Testing performed by : [address] [address] Neutrophil pct 71.9 % [facility] Comment: Interpretive Data Percent cell count reference ranges are not reported, since discordance with absolute values may lead to misinterpretation of CBC data. Current Interpretive Data was last revised on 2017. Testing performed by: [address] [address] Imm gran pct 0.2 % [facility] Comment: Interpretive Data Percent cell count reference ranges are not reported, since discordance with absolute values may lead to misinterpretation of CBC data. Current Interpretive Data was last revised on 2017. Testing performed by: [address] [address] Lymphocyte pct 17.2 % [facility] Comment: Interpretive Data Percent cell count reference ranges are not reported, since discordance with absolute values may lead to misinterpretation of CBC data. Current Interpretive Data was last revised on 2017. Testing performed by: [address] [address] Monocyte pct 8.6 % [facility] Comment: Interpretive Data Percent cell count reference ranges are not reported, since discordance with absolute values may lead to misinterpretation of CBC data. Current Interpretive Data was last revised on 2017. Testing performed by: [address] [address] Eosinophil pct 1.5 % [facility] Comment: Interpretive Data Percent cell count reference ranges are not reported, since discordance with absolute values may lead to misinterpretation of CBC data. Current Interpretive Data was last revised on 2017. Testing performed by: [address] [address] Basophil pct 0.6 % [facility] Comment: Interpretive Data Percent cell count reference ranges are not reported, since discordance with absolute values may lead to misinterpretation of CBC data. Current Interpretive Data was last revised on 2017. Testing performed by: [address] [address] Blood 08/07/2024 8:51 AM RETAIL BUSINESS DEVELOPMENT MANAGER 08/07/2024 8:56 AM RETAIL BUSINESS DEVELOPMENT MANAGER us Andriy Herndon MD PhD LAB BLOOD ORDERABLES Final Result [facility] Department [place] [address] * (ABNORMAL) CBC with auto differential (08/07/2024 8:51 AM RETAIL BUSINESS DEVELOPMENT MANAGER) WBC 8.6 3.8 - 9.9 K/cumm Comment:Testing performed by : [address] [address] Hgb 13.2 11.9 - 15.5 g/dL [facility] Comment:Testing performed by : [address] [address] Hct 39.6 35.6 - 45.5 % [facility] Comment:Testing performed by : [address] [address] Plt 179 150 - 400 K/cumm [facility] Comment:Testing performed by : [address] [address] MPV 12.2 9.1 - 12.3 fL [facility] Comment:Testing performed by : [address] [address] RBC 4.20 3.90 - 5.20 M/cumm [facility] Comment:Testing performed by : [address] [address] MCV 94.3 81.3 - 96.4 fL [facility] Comment:Testing performed by : [address] [address] MCH 31.4 27.1 - 33.3 pg [facility] Comment:Testing performed by : [address] [address] MCHC 33.3 32.3 - 35.7 g/dL [facility] Comment:Testing performed by : [address] [address] RDW CV 14.3 11.1 - 14.9 % [facility] Comment:Testing performed by : [address] [address] RDW SD 49.6(H) 35.7 - 48.1 fL [facility] Comment:Testing performed by : [address] [address] NRBC abs 0.00 0.00 - 0.01 K/cumm [facility] Comment:Testing performed by : [address] [address] Blood 08/07/2024 8:51 AM RETAIL BUSINESS DEVELOPMENT MANAGER 08/07/2024 8:56 AM RETAIL BUSINESS DEVELOPMENT MANAGER us Andriy Herndon MD PhD LAB BLOOD ORDERABLES Final Result [facility] [address] [facility] Department of Laboratories [place], [place] [id number] * (ABNORMAL) Protime-INR (08/07/2024 8:51 AM RETAIL BUSINESS DEVELOPMENT MANAGER) PT 35.3(H) 12.0 - 14.6 sec Comment: Ref Range High Testing performed by: [address] [address] INR 3.6(H) 0.9 - 1.2 [facility] Comment: Ref Range High Interpretive data Oral anticoagulant therapeutic ranges: Venous thromboembolism prophylaxis or treatment: 2.0-3.0 CARDIOLOGY Standard range: 2.0-3.0 High-intensity range: 2.5-3.5 Refer to indication-specific guidelines for appropriate target ranges for prosthetic heart valve replacement. Current interpretive data was last revised on 2019. Testing performed by: [address] [address] Blood 08/07/2024 8:51 AM RETAIL BUSINESS DEVELOPMENT MANAGER 08/07/2024 9:54 AM RETAIL BUSINESS DEVELOPMENT MANAGER us Kathy Donohue MD LAB BLOOD ORDERABL ES Final Result [facility] [address] [facility] Department [place] [address] * (ABNORMAL) Comprehensive metabolic panel (08/07/2024 8:51 AM RETAIL BUSINESS DEVELOPMENT MANAGER) Sodium 142 135 - 145 mmol/L Comment:Testing performed by : [address] [address] Potassium, pl 4.5 3.3 - 4.9 mmol/L [facility] Comment:Testing performed by : [address] [address] Chloride 106 97 - 110 mmol/L [facility] Comment:Testing performed by : [address] [address] CO2 26 22 - 32 mmol/L [facility] Comment:Testing performed by : [address] [address] Anion gap 10 2 - 15 mmol/L [facility] Comment:Testing performed by : [address] [address] BUN 13 6 - 25 mg/dL [facility] Comment:Testing performed by : [address] [address] Creatinine 0.90 0.60 - 1.10 mg/dL [facility] Comment:Testing performed by : [address] [address] Glucose 107 70 - 199 mg/dL [facility] Comment: Interpretive Data Fasting glucose >/= 126 mg/dl is diagnostic for diabetes. Fasting is defined as no caloric intake for at least 8 hours. Fasting glucose between 100 mg/dl to 125 mg/dl is diagnostic of prediabetes. In a patient with classic symptoms of hyperglycemia or hyperglycemic crisis, a random glucose >/= 200 mg/dl is diagnostic for diabetes. In the absence of unequivocal hyperglycemia, results should be confirmed by repeat testing. The classification and Diagnosis of Diabetes Diabetes Care 202; 46: S19-S40. Current interpretive data was last revised 2022. Testing performed by: [address] [address] Calcium 9.3 8.5 - 10.3 mg/dL [facility] Comment:Testing performed by : [address] [address] Bilirubin, total 0.3 0.1 - 1.2 mg/dL [facility] Comment:Testing performed by : [address] [address] Protein, pl 7.2 6.5 - 8.5 g/dL [facility] Comment:Testing performed by : [address] [address] Albumin 3.7 3.5 - 5.0 g/dL [facility] Comment:Testing performed by : [address] [address] Alk phos 131(H) 40 - 130 Units/L [facility] Comment:Testing performed by : [address] [address] ALT 13 7 - 45 Units/L [facility] Comment:Testing performed by : [address] [address] AST 14 10 - 45 Units/L [place] Comment:Testing performed by : [address] [address] Blood 08/07/2024 8:51 AM RETAIL BUSINESS DEVELOPMENT MANAGER 08/07/2024 8:56 AM RETAIL BUSINESS DEVELOPMENT MANAGER us Andriy Herndon MD PhD LAB BLOOD ORDERABLES Final Result [facility] [address] [facility] Department [place] [address] * Lipid panel (01/26/2024 10:02 AM CDT) [facility] Cholesterol 182 30 - 199 mg/dL Comment: Interpretive Data Ages < or = 19 years Acceptable: <170 mg/dL Borderline high: 170-199 mg/dL High: >or= 200 mg/dL Ages > or = 20 years Desirable: <200 mg/dL Borderline high: 200-239 mg/dL High: >or= 240 mg/dL Literature References: 1. Expert Panel on Integrated Guidelines for Cardiovascular Health and Risk Reduction in Children and Adolescents. Pediatrics 2011;128:S213 2. NCEP Expert Panel. Circulation 2004;110:227 Current Interpretive Data was last revised on 2018. Triglycerides 147 <=149 mg/dL [facility] Comment: Interpretive Data Ages < or = 9 years Acceptable: <75 mg/dL Borderline high: 75-99 mg/dL High: >or= 100 mg/dL Ages 10 to 20 years Acceptable: <90 mg/dL Borderline high: 90-129 mg/dL High: >or= 130 mg/dL Ages > or = 20 years Desirable: <150 mg/dL Borderline high: 150-199 mg/dL High: 200-499 mg/dL Very high: >or= 499 mg/dL Literature References: 1. Expert Panel on Integrated Guidelines for Cardiovascular Health and Risk Reduction in Children and Adolescents. Pediatrics 2011;128:S213 2. NCEP Expert Panel. Circulation 2004;110:227 Current Interpretive Data was last revised on 2018. HDL 40 >=40 mg/dL [facility] Comment: Interpretive Data Ages < or = 19 years Acceptable: >45 mg/dL Borderline low: 40-45 mg/dL Low: <40 mg/dL Ages > or = 20 years Desirable: >or= 60 mg/dL Low: <40 mg/dL Literature References: 1. Expert Panel on Integrated Guidelines for Cardiovascular Health and Risk Reduction in Children and Adolescents. Pediatrics 2011;128:S213 2. NCEP Expert Panel. Circulation 2004;110:227 Current Interpretive Data was last revised on 2018. LDL, calculated 113 <=129 mg/dL [facility] Comment: Interpretive Data Ages < or = 19 years Acceptable: <110 mg/dL Borderline high: 110-129 mg/dL High: >or= 130 mg/dL Ages > or = 20 years Optimal: <100 mg/dL Near optimal: 100-129 mg/dL Borderline high: 130-159 mg/dL High: >160 mg/dL Literature References: 1. Expert Panel on Integrated Guidelines for Cardiovascular Health and Risk Reduction in Children and Adolescents. Pediatrics 2011;128:S213 2. NCEP Expert Panel. Circulation 2004;110:227 Current Interpretive Data was last revised on 2018. Non-HDL Cholesterol 142 mg/dL [facility] Comment: Interpretive Data Ages < or = 19 years Acceptable: <120 mg/dL Borderline high: 120-144 mg/dL High: >145 mg/dL Ages > or = 20 years When triglycerides are >200 mg/dL, Non-HDL cholesterol is a secondary target of therapy with treatment goals that are 30 mg/dL greater than the LDL cholesterol target. Literature References: 1. Expert Panel on Integrated Guidelines for Cardiovascular Health and Risk Reduction in Children and Adolescents. Pediatrics 2011;128:S213 2. NCEP Expert Panel. Circulation 2004;110:227 Current Interpretive Data was last revised on 2018. Chol/HDL ratio 5 [facility] Blood 01/26/2024 10:0 2 AM CDT 01/26/2024 10:31 AM CDT us Christopher Dubon MD LAB BLOOD ORDERABLES F inal Result [facility] [address] [facility] Department [place] [address] * (ABNORMAL) Albumin Creatinine Ratio, Urine (01/02/2020 7:36 AM CDT) Creatinine, ur 45 20 - 275 mg/dL [facility] [place] Microalbumin, ur 1.6 See Note: mg/dL [facility] [place] Comment: Reference Range: Reference Range Not established Microalbumin/creat ratio 36(H) <30 mcg/mg creat [facility] [place] Comment: The ADA defines abnormalities in albumin excretion as follows: Category Result (mcg/mg creatinine) Normal <30 Microalbuminuria 30-299 Clinical albuminuria > OR = 300 The ADA recommends that at least two of three specimens collected within a 3-6 month period be abnormal before considering a patient to be within a diagnostic category. 01/02/2020 7:36 AM CDT 01/02/2020 7:38 AM CDT Narrative [facility] - 01/03/2020 1:57 PM CDT FASTING:YES FASTING: YES Resulting Agency Comment Performing Organization Information: Site ID: [id number] Name: Joseph Yip Address: [address] [place] [address] Director: Dexter Jenkins D.O., MPH Abraham Parsons MD LAB URINE ORDERABLES Final Resul t Performing Organization Address [facility] Co de Phone Number [facility] - [facility] Hector * (ABNORMAL) Hemoglobin A1c (01/02/2020 7:36 AM CDT) Hgb A1C 7.0(H) <5.7 % of total Hgb [employer] [facility] Comment: For someone without known diabetes, a hemoglobin A1c value of 6.5% or greater indicates that they may have diabetes and this should be confirmed with a follow-up test. For someone with known diabetes, a value <7% indicates that their diabetes is well controlled and a value greater than or equal to 7% indicates suboptimal control. A1c targets should be individualized based on duration of diabetes, age, comorbid conditions, and other considerations. Currently, no consensus exists regarding use of hemoglobin A1c for diagnosis of diabetes for children. Your request to have a duplicate copy faxed has been acknowledged. Queued to: [id number] Blood specimen (specimen) 01/02/2020 7:36 AM CDT 01/02/2020 7:38 AM CDT Narrative [facility] - 01/03/2020 1:57 PM CDT FASTING:YES FASTING: YES Resulting Agency Comment Performing Organization Information: Site ID: [id number] Name: Joseph Yip Address: [id number] [place] [address] Director: Dexter Jenkins D.O., MPH Abraham Parsons MD LAB BLOOD ORDERABLES Final Resul t Performing Organization Address [facility] Co de Phone Number LEE Mendez from Last 3 Months or Most Recently Relevant to Health Maintenance Insurance MEDICARE [employer] [place] [employer]ARE [employer] [place] MEDICARE [facility] Advance Directives For more information, please contact: [phone] Documents on File Type Date Recorded Patient Fashion Coordinator Expl anation ADVANCE DIRECTIVE 07/09/2024 1:04 PM [employer] Principal-Medical ADVANCE DIRECTIVE 09/21/2021 12:53 PM [employer] Principal-Medical * Full Code (Latest Code Status on File) Date Activated Date Inactivated Comments 07/07/2024 9:01 AM 07/11/2024 9:08 PM * Full Code Date Activated Date Inactivated Comments 06/28/2024 7:16 AM 06/28/2024 1:56 PM * Full Code Date Activated Date Inactivated Comments 10/17/2023 8:21 AM 10/18/2023 5:25 AM * Full Code Date Activated Date Inactivated Comments 09/28/2021 9:34 AM 09/29/2021 4:54 AM * Full Code Date Activated Date Inactivated Comments 09/21/2021 3:09 AM 09/22/2021 5:34 PM Care Teams Mechanical Service Technician Relationship Specialty Start Date End Date NellaHayden croft DO [address] [place] [address] PCP - General Family Medicine 05/06/22 Eder Jaffe MD [address] [facility] [address] [place] [address] Consulting Physician Pulmonary Disease 10/15/21 Fazal Baird MD [address] [place] [address] Consulting Physician Cardiothoracic Surgery 10/21/21 Christopher Dubon MD [facility]0 [facility] [address] [address] Consulting Physician Cardiology 08/12/23 Wagner Villatoro MD [address] [place] [id number] Radiation Oncologist Radiation Oncology 10/25/23 Eder Jaffe MD [facility]0 [facility] [address] [place] [address] Surgeon Pulmonary Disease 01/10/24 Andriy Herndon MD PhD [address] [place] [phone] Consulting Physician Medical Oncology 05/22/24 Clifton De MD [address] [place] [phone] Consulting Physician Pain Management 05/25/24 Jacob Ko MD [address] [facility] [place] [address] Consulting Physician Cardiology 05/25/24
--- OUTSIDE RECORDS SUMMARY | 2024-10-24 09:41 | XMS_ITS | Encounter Summary ---
Author Organization [facility] Facility Care Team Providers Care Veterinarian Laboratory Animal Care Name Role Phone Jessica Jerez Primary Care Provider + [phone] Yoanna Lim LPN Unavailable [phone] Dexter Hines MD Primary Care Provider [phone] Jessica Jerez Primary Care Provider + [phone] Dexter Hines MD Primary Care Provider [phone] Kaitlin Patterson MD Unavailable [phone] Dylon Cruz MD Unavailable [phone] Dylon Cruz MD Unavailable [phone] Dexter Hines MD Primary Care Provider [phone] Andriy Herndon MD PhD Unavailable [phone] Eder Jaffe MD Unavailable [phone] Wagner Villatoro MD Unavailable [phone] Fazal Baird MD Unavailable [phone] Fazal Cordero MD Primary Care Provider Hayden Miller DO Primary Care Provider [phone] Christopher uDbon MD Unavailable [phone] Wagner Villatoro MD Unavailable [phone] Eder Jaffe MD Unavailable Andriy Herndon MD PhD Unavailable Clifton De MD Unavailable Jacob Ko MD Unavailable [phone] Encounter Details Date Type Department Care Team (Latest Contact Info) Description 10/28/2017 Orders Only [facility]INCONV Provider, MD [place] [address] [place] [id number] Social History Tobacco Use Types Packs/Day [...] Procedure Name Priority Date/Time Associated Diagnosis Comments SCAN - LABS 10/31/2017 12:00 AM TERMINAL MAKE UP OPERATOR documented in this encounter Results * SCAN - LABS (10/31/2017 12:00 AM TERMINAL MAKE UP OPERATOR) Narrative 10/31/2017 12:00 AM TERMINAL MAKE UP OPERATOR Ordered by an unspecified provider. Historical Provider Final Res ult documented in this encounter Visit Diagnoses Not on filedocumented in this encounter Additional Health Concerns Infection Onset Date Last Indicated Resolved Time Ring Surveillance Comment:07/07/24 admitted to [facility] ring surveillance room. ML 07/12/24 negative [facility] result. ML 07/07/2024 07/07/2024 07/12/2024 1:[address] documented as of this encounter Care Teams Veterinarian Laboratory Animal Care Relationship Specialty Start Date End Date Jessica Jerez PA [address] [place] [address] PCP - General Critical Care Med 07/06/18 11/21/18 Dexter Hines MD [address] [place] [address] PCP - General 11/22/18 12/21/18 Jessica Jerez PA [address] [place] [address] PCP - General Critical Care Med 12/22/18 01/22/19 Dexter Hines MD [address] [place] [address] PCP - General Internal Medicine 01/23/19 07/04/19 Dexter Hines MD [address] [place] [address] PCP - General 07/28/19 04/22/22 Fazal Cordero MD [address] [place] [address] PCP - General Orthopedic Surgery 04/23/22 05/05/22 Hayden Miller DO [address] [facility] [address] PCP - General Family Medicine 05/06/22 Yoanna Lim, OCCUPATIONAL THERAPY PROGRAM DIRECTOR [address] [facility] [address] [place] [address] Iv Technician 07/06/18 07/06/18 Kaitlin Patterson MD [address] [place] [address] Burn Out Tender Lace Interventional Cardiology 05/22/19 08/11/23 Dylon Cruz MD [address] [place] [address] Poultry Processor Medical Oncology 06/27/19 10/14/21 Dylon Cruz MD [address] [place] [address] Medical Oncologist/Hematologis t Medical Oncology 06/27/19 10/14/21 Andriy Herndon MD PhD [address] [place] [address] MEDICAL ONCOLOGY, [address] [address] Consulting Physician Medical Oncology 10/15/21 4 Eder Jaffe MD [address] [facility] [address] [place] [address] Consulting Physician Pulmonary Disease 10/15/21 Wagner Villatoro MD [address] [facility] [address] [place] [address] [phone] Radiation Oncologist Radiation Oncology 10/21/21 Fazal Baird MD [address] [place] [address] Consulting Physician Cardiothoracic Surgery 10/21/21 Christopher Dubon MD [address] [facility] [address] [address] Consulting Physician Cardiology 08/12/23 Wagner Villatoro MD [address] [place] [address] [address] [place] [address] Radiation Oncologist Radiation Oncology 10/25/23 Eder Jaffe MD [address] [facility] [address] [place] [address] Surgeon Pulmonary Disease 01/10/24 Andriy Herndon MD PhD [address] [place] [address] Consulting Physician Medical Oncology 05/22/24 Clifton De MD [address] [place] [address] [id number] Consulting Physician Pain Management 05/25/24 Jacob Ko MD [address] [facility] [place] [address] Consulting Physician Cardiology 05/25/24 documented as of this encounter
--- OUTSIDE RECORDS SUMMARY | 2024-10-24 09:41 | XMS_ITS | Encounter Summary ---
Author Organization [facility] Facility Care Team Providers Care Application Development Specialist Name Role Phone Jessica Jerez Primary Care Provider + [phone] Yoanna Lim LPN Unavailable [phone] Dexter Hines MD Primary Care Provider +[phone] Jessica Jerez Primary Care Provider + [phone] Dexter Hines MD Primary Care Provider +[phone] Kaitlin Patterson MD Unavailable [phone] Dylon Cruz MD Unavailable [phone] Dylon Cruz MD Unavailable [phone] Dexter Hines MD Primary Care Provider +[phone] Andriy Herndon MD PhD Unavailable [phone] Eder Jaffe MD Unavailable [phone] Wagner Villatoro MD Unavailable [phone] Fazal Baird MD Unavailable Fazal Cordero MD Primary Care Provider Hayden Miller DO Primary Care Provider +[phone] Christopher Dubon MD Unavailable + [phone] Wagner Villatoro MD Unavailable [phone] Eder Jaffe MD Unavailable Andriy Herndon MD PhD Unavailable Clifton De MD Unavailable Jacob Ko MD Unavailable +[phone] Encounter Details Date Type Department Care Team (Latest Contact Info) Description 12/01/2017 Orders Only [facility] CLINCONV Provider, MD Bairon [address] [place] [address] Social History Tobacco Use Types Packs/Day [...] Date/Time Associated Diagnosis Comments SCAN - LABS 11/25/2017 12:00 AM CDT documented in this encounter Results * SCAN - LABS (11/25/2017 12:00 AM CDT) Narrative 11/25/2017 12:00 AM CDT Ordered by an unspecified provider. Historical Provider Final Res ult documented in this encounter Visit Diagnoses Not on filedocumented in this encounter Additional Health Concerns Infection Onset Date Last Indicated Resolved Time Ring Surveillance Comment:07/07/24 admitted to [facility] ring surveillance room. ML 07/12/24 negative C. Auris result. ML 07/07/2024 07/07/2024 07/12/2024 1:[address] documented as of this encounter Care Teams Application Development Specialist Relationship Specialty Start Date End Date Jessica Jerez PA [address] [place] [address] PCP - General Critical Care Med 07/06/18 11/21/18 Dexter Hines MD [address] [place] [address] PCP - General 11/22/18 12/21/18 Jessica Jerez PA [address] [place] [address] PCP - General Critical Care Med 12/22/18 01/22/19 Dexter Hines MD [address] [place] [address] PCP - General Internal Medicine 01/23/19 07/04/19 Dexter Hines MD [address] [place] [address] PCP - General 07/28/19 04/22/22 Fazal Cordero MD [address] [place] [address] PCP - General Orthopedic Surgery 04/23/22 05/05/22 Hayden Miller DO [address] [place] [address] PCP - General Family Medicine 05/06/22 Yoanna Lim, PESTICIDE APPLICATOR [address] [place] [address] [address] [place] [address] Frequency Checker 07/06/18 07/06/18 Kaitlin Patterson MD [address] [place] [address] Auto Garage Attendant Interventional Cardiology 05/22/19 08/11/23 Dylon Cruz MD [address] [place] [address] Dean Of Education Medical Oncology 06/27/19 10/14/21 Dylon Cruz MD [address] [place] [address] Medical Oncologist/Hematologis t Medical Oncology 06/27/19 10/14/21 Andriy Herndon MD PhD [address] [place] [address] MEDICAL ONCOLOGY, [address] [address] Consulting Physician Medical Oncology 10/15/21 4 Eder Jaffe MD [address] [facility] [facility] [address] M[address] [place] [address] Consulting Physician Pulmonary Disease 10/15/21 Wagner Villatoro MD [address] [address] [place] [address] Radiation Oncologist Radiation Oncology 10/21/21 Fazal Baird MD [address] [place] [address] Consulting Physician Cardiothoracic Surgery 10/21/21 Christopher Dubon MD [address] [facility] [address] [address] Consulting Physician Cardiology 08/12/23 Wagner Villatoro MD [address] [place] [address] Radiation Oncologist Radiation Oncology 10/25/23 Eder Jaffe MD [address] [facility] [address] [place] [address] Surgeon Pulmonary Disease 01/10/24 Andriy Herndon MD PhD [address] [place] [address] Consulting Physician Medical Oncology 05/22/24 Clifton De MD [address] [place] [address] Consulting Physician Pain Management 05/25/24 Jacob Ko MD [address] [facility] [address] [address] Consulting Physician Cardiology 05/25/24 documented as of this encounter
--- OUTSIDE RECORDS SUMMARY | 2024-10-24 09:41 | XMS_ITS | Encounter Summary ---
Author Organization [facility] Facility Care Team Providers Care Supervisor Furnace Process Name Role Phone Jessica Jerez Primary Care Provider + [phone] Yoanna Lim LPN Unavailable [phone] Dexter Hines MD Primary Care Provider +[phone] Jessica Jerez Primary Care Provider + [phone] Dexter Hines MD Primary Care Provider [phone] Kaitlin Patterson MD Unavailable [phone] Dylon Cruz MD Unavailable [phone] Dylon Cruz MD Unavailable [phone] Dexter Hines MD Primary Care Provider [phone] Andriy Herndon MD PhD Unavailable [phone] Eder Jaffe MD Unavailable [phone] Wagner Villatoro MD Unavailable [phone] Fazal Baird MD Unavailable [phone] Fazal Cordero MD Primary Care Provider Hayden Miller DO Primary Care Provider [phone] Christopher Dubon MD Unavailable + [phone] Wagner Villatoro MD Unavailable [phone] Eder Jaffe MD Unavailable Andriy Herndon MD PhD Unavailable Clifton De MD Unavailable Jacob Ko MD Unavailable Encounter Details Date Type Department Care Team (Latest Contact Info) Description 04/01/2018 Orders Only [facility] CLINCONV ProviderBairon MD [address] [place] [address] Social History Tobacco Use Types Packs/Day [...] Date/Time Associated Diagnosis Comments SCAN - LABS 04/03/2018 12:00 AM CDT documented in this encounter Results * SCAN - LABS (04/03/2018 12:00 AM CDT) Narrative 04/03/2018 12:00 AM CDT Ordered by an unspecified [...] documented as of this encounter Care Teams Supervisor Furnace Process Relationship Specialty Start Date End Date Jessica Jerez PA [address] [place] [address] PCP - General Critical Care Med 07/06/18 11/21/18 Dexter Hines MD [address] [place] [address] PCP - General 11/22/18 12/21/18 Jessica Jerez PA [address] [place] [address] PCP - General Critical Care Med 12/22/18 01/22/19 Dexter Hines MD [address] [place] [address] PCP - General Internal Medicine 01/23/19 07/04/19 Dexter Hines MD [address] [place] [address] PCP - General 07/28/19 04/22/22 Fazal Cordero MD [address] [facility] [place] [address] PCP - General Orthopedic Surgery 04/23/22 05/05/22 Hayden Miller DO [address] [facility] [place] [address] PCP - General Family Medicine 05/06/22 Yoanna Lim, DEMONSTRATOR KNITTING [address] [place] [address] [address] [place] [address] Export Sales Manager 07/06/18 07/06/18 Kaitlin Patterson MD [address] [place] [address] Cigarette Maker Interventional Cardiology 05/22/19 08/11/23 Dylon Cruz MD [address] [place] [address] Impregnator Medical Oncology 06/27/19 10/14/21 Dylon Cruz MD [address] [place] [address] Medical Oncologist/Hematologis t Medical Oncology 06/27/19 10/14/21 Andriy Herndon MD PhD [address] [place] [address] MEDICAL ONCOLOGY, [address] [address] Consulting Physician Medical Oncology 10/15/21 4 Eder Jaffe MD [address] [facility] [address] [place] [address] Consulting Physician Pulmonary Disease 10/15/21 Wagner Villatoro MD [address] [facility] [address] [place] [address] Radiation Oncologist Radiation Oncology 10/21/21 Fazal Baird MD [address] [place] [address] Consulting Physician Cardiothoracic Surgery 10/21/21 Christopher Dubon MD [address] [facility] [address] [address] Consulting Physician Cardiology 08/12/23 Wagner Villatoro MD [address] [place] [address] Radiation Oncologist Radiation Oncology 10/25/23 Eder Jaffe MD [address] [facility] [address] [place] [address] Surgeon Pulmonary Disease 01/10/24 Andriy Herndon MD PhD [address] [place] [address] Consulting Physician Medical Oncology 05/22/24 Clifton De MD [address] [place] [address] Consulting Physician Pain Management 05/25/24 Jacob Ko MD [address] [facility] [address] [address] Consulting Physician Cardiology 05/25/24 documented as of this encounter
--- OUTSIDE RECORDS SUMMARY | 2024-10-24 09:41 | XMS_ITS | Encounter Summary ---
Author Organization [facility] Facility Care Team Providers Care Cable Mechanic Name Role Phone Jessica Jerez Primary Care Provider + [phone] Dexter Hines MD Primary Care Provider [phone] Jessica Jerez Primary Care Provider + [phone] Dexter Hines MD Primary Care Provider [phone] Kaitlin Patterson MD Unavailable + [phone] Dylon Cruz MD Unavailable [phone] Dylon Cruz MD Unavailable [phone] Dexter Hines MD Primary Care Provider [phone] Andriy Herndon MD PhD Unavailable Eder Jaffe MD Unavailable [phone] Wagner Villatoro MD Unavailable [phone] Fazal Baird MD Unavailable [phone] Fazal Cordero MD Primary Care Provider Hayden Miller DO Primary Care Provider [phone] Christopher Dubon MD Unavailable [phone] Wagner Villatoro MD Unavailable [phone] Eder Jaffe MD Unavailable [phone] Andriy Herndon MD PhD Unavailable [phone] Clifton De MD Unavailable Jacob Ko MD Unavailable [phone] Encounter Details Date Type Department Care Team (Latest Contact Info) Description 08/15/2018 Orders Only [facility] CLINCONV ProviderBairon MD [address] [place] [address] Social History Tobacco Use Types Packs/Day [...] Priority Date/Time Associated Diagnosis Comments CARDIOLOGY REPORT 08/15/2018 12: 00 AM ATTENDANCE OFFICER CARDIOLOGY REPORT 08/15/2018 12: 00 AM ATTENDANCE OFFICER CARDIOLOGY REPORT 08/15/2018 12: 00 AM ATTENDANCE OFFICER documented in this encounter Results * CARDIOLOGY REPORT (08/15/2018 12:00 AM ATTENDANCE OFFICER) Anatomical Region Laterality Modality Other Narrative 08/15/2018 12:00 AM ATTENDANCE OFFICER Ordered by an unspecified provider. Historical Provider CV CARDIAC SERVICES PROCE DURES Final Result * CARDIOLOGY REPORT (08/15/2018 12:00 AM ATTENDANCE OFFICER) Anatomical Region Laterality Modality Other Narrative 08/15/2018 12:00 AM ATTENDANCE OFFICER Ordered by an unspecified provider. Historical Provider CV CARDIAC SERVICES PROCE DURES Final Result * CARDIOLOGY REPORT (08/15/2018 12:00 AM ATTENDANCE OFFICER) Anatomical Region Laterality Modality Other Narrative 08/15/2018 12:00 AM ATTENDANCE OFFICER Ordered by an unspecified provider. Historical Provider CV CARDIAC SERVICES PROCE DURES Final Result documented in this encounter Visit Diagnoses Not on filedocumented in this encounter Additional Health Concerns Infection Onset Date Last Indicated Resolved Time Ring Surveillance Comment:07/07/24 admitted to C. [facility] ring surveillance room. ML 07/12/24 negative C. Auris result. ML 07/07/2024 07/07/2024 07/12/2024 1:[address] documented as of this encounter Care Teams Cable Mechanic Relationship Specialty Start Date End Date Jessica Jerez PA [address] [place] [address] PCP - General Critical Care Med 07/06/18 11/21/18 Dexter Hines MD [address] [place] [address] PCP - General 11/22/18 12/21/18 Jessica Jerez PA [address] [place] [address] PCP - General Critical Care Med 12/22/18 01/22/19 Dexter Hines MD [address] [place] [address] PCP - General Internal Medicine 01/23/19 07/04/19 Dexter Hines MD [address] [place] [address] PCP - General 07/28/19 04/22/22 Fazal Cordero MD [address] [facility]A [place] [address] PCP - General Orthopedic Surgery 04/23/22 05/05/22 Hayden Miller DO [address] [facility] [address]6B[address] [place] [address] PCP - General Family Medicine 05/06/22 Kaitlin Patterson MD [address] [place] [address] Automotive Starter Repairer Interventional Cardiology 05/22/19 08/11/23 Dylon Cruz MD [address] [place] [address] Resident Associate Medical Oncology 06/27/19 10/14/21 Dylon Cruz MD [address] [place] [address] Medical Oncologist/Hematologis t Medical Oncology 06/27/19 10/14/21 Andriy Herndon MD PhD [address] [place] [address] MEDICAL ONCOLOGY, [address] [address] Consulting Physician Medical Oncology 10/15/21 4 Eder Jaffe MD [address] [facility] [address] [place] [address] Consulting Physician Pulmonary Disease 10/15/21 Wagner Villatoro MD [address] [facility] [address] [place] [address] Radiation Oncologist Radiation Oncology 10/21/21 Fazal Baird MD [address] [place] [address] Consulting Physician Cardiothoracic Surgery 10/21/21 Christpoher Dubon MD [address] [facility] [address] [address] Consulting Physician Cardiology 08/12/23 Wagner Villatoro MD [address] [place] [address] Radiation Oncologist Radiation Oncology 10/25/23 Eder Jaffe MD [address] [facility] [address] [place] [address] Surgeon Pulmonary Disease 01/10/24 Andriy Herndon MD PhD [address] [place] [address] Consulting Physician Medical Oncology 05/22/24 Clifton De MD [address] [place] [address] Consulting Physician Pain Management 05/25/24 Jacob Ko MD [address] [facility] [address] [place] [address] Consulting Physician Cardiology 05/25/24 documented as of this encounter
--- OUTSIDE RECORDS SUMMARY | 2024-10-24 09:42 | XMS_ITS ---
Author Organization [facility] Address [address] [place] [address] Care Team Providers Care Metal Finish Inspector Name Role Phone Eder Jaffe MD Unavailable [phone] Fazal Baird MD Unavailable [phone] Hayden Miller DO Primary Care Provider [phone] Christopher Dubon MD Unavailable Wagner Villatoro MD Unavailable [phone] Eder Jaffe MD Unavailable [phone] Andriy Herndon MD PhD Unavailable Clifton De MD Unavailable Jacob Ko MD Unavailable [phone] Active Problems Problem Noted Date Diagnosed Date Acute pulmonary embolism, un specified pulmonary embolism type, unspecified whether acute cor pulmonale present 07/06/2024 SSS (sick sinus syndrome) (CMS/HCC) 05/22/2024 Personal history of radiation therapy 01/03/2024 History of lung cancer 08/11/2023 Mediastinal adenopathy 08/11/2023 Coronary artery disease invo lving buck[place] coronary artery of [place] heart without angina pectoris 07/03/2023 Orthostatic syncope [...] 02/20/2019 Assessment & Plan (09/02/2020 1:47 PM JR. SYSTEMS ADMINISTRATOR): Check today shows normal function. Underlying rhythm controlled AFib. 20% V paced 100% mode switch. Assessment & Plan (09/04/2019 1:52 PM JR. SYSTEMS ADMINISTRATOR): Underlying rhythm today 2-1 flutter ventricular rate 110 beats per minute. Histograms during mode switch show controlled rate 100% mode switch. Excellent lead function. No other arrhythmias. Battery 5 years Assessment & Plan (02/20/2019 3:10 PM CDT): Check today shows normal function. Better life 6 years excellent lead function. 6% V pacing Anticoagulation management encounter 02/20/2019 Assessment & Plan (09/02/2020 1:50 PM JR. SYSTEMS ADMINISTRATOR): Continue Coumadin. No bleeding Assessment & Plan (09/04/2019 2:03 PM JR. SYSTEMS ADMINISTRATOR): Continue Coumadin. Assessment & Plan (02/20/2019 3:11 PM CDT): Continue Coumadin for thromboembolic risk reduction Atrial fibrillation (CMS/HCC) 12/07/2018 Assessment & Plan (09/02/2020 1:47 PM JR. SYSTEMS ADMINISTRATOR): Persistent. Histogram show excellent rate control. Continue Bystolic continue Coumadin Assessment & Plan (09/04/2019 1:55 PM JR. SYSTEMS ADMINISTRATOR): Permanent rate controlled. Would not make any [...] meds. Assessment & Plan (09/11/2019 10:07 AM JR. SYSTEMS ADMINISTRATOR): Goal of treatment is a TSH within [...] therapy. Assessment & Plan (11/02/2023 8:40 AM JR. SYSTEMS ADMINISTRATOR): The patient continue to wear her CPAP at 12 cm water pressure while sleeping. Her DME is [employer]. They are going to bring the SmartCard to [employer] for a download. Assessment & Plan (10/27/2022 1:59 PM JR. SYSTEMS ADMINISTRATOR): Due to the patient having difficulty with the mask leaking while she sleeps I will decrease the patient's CPAP pressure to 12 cm water pressure while sleeping. Her DME is [employer]. Assessment & Plan (10/26/2021 2:06 PM JR. SYSTEMS ADMINISTRATOR): The patient will continue with CPAP therapy at 14 cm water pressure. Patient denied need for supplies. DME company [employer] Assessment & Plan (08/25/2021 1:38 PM JR. SYSTEMS ADMINISTRATOR): Patient continue to wear her CPAP at [...] 03/12/2016 Assessment & Plan (09/02/2020 1:50 PM JR. SYSTEMS ADMINISTRATOR): Well controlled Assessment & Plan (02/20/2019 3:19 [...] Signed by Wagner Villatoro MD on 03/04/2022 Current Treatment and Therapy Plans IV Maintenance Therapy Plan* Plan Start Date:10/11/2023 Plan Provider:Andriy Herndon MD PhD Linked Problems Malignant neoplasm of upper lobe of right lung (HCC) Treatment Medications No medications scheduled. Past Treatment and Therapy Plans Oncology Chemotherapy Treatment Plan Name Start Date Discontinue Date Treatment Medications Discontinue Reason Plan Provider Cycles PACLItaxel / CARBOplatin with Concurrent Radiation: Induction / Weekly - Non-Small Cell Lung 4 12/05/2023 CARBOplatin (PARAPLATIN) IVPB in 250 mLPACLItaxel (TAXOL) 100 ml Therapy Complete Andriy Herndon MD PhD 1 of 1 cycle started Oncology Treatment (2) Plan Name Start Date Discontinue Date Treatment Medications Discontinue Reason Plan Provider Cycles durvalumab consolidation 14 Day Cycles - Lung 4 07/23/2024 durvalumab (IMFINZI)durva lumab (IMFINZI) IVPB in 100 mL solution Progressive Disease Andriy Herndon MD PhD 15 of 26 cycles started Radiation Treatments * Course [id number]_202310/11/2023 - 11/22/2023 Treatment Period Energy Fraction Dose Fractions Total Dose Plans Planned MEDIASTINUM 10/11/2023 - 11/22/2023 200 30 / 6,000 Reference Points Delivered MEDIASTINUM 10/11/2023 - 11/22/2023 6,000 * Course [id number]_RUL_202111/23/2021 - 12/02/2021 Treatment Period Energy Fraction Dose Fractions Total Dose Plans Planned RUL SBRT 11/23/2021 - 12/02/2021 1,100 5 / 5,500 Reference Points Delivered [id number] 11/23/2021 - 12/02/2021 5,500 Lifetime Dose Tracking * Chemical Lifetime Dose Automatic Entry Manual Entr y Fluoro Time 0.5 minutes 0.5 minutes 0 minutes Air kerma at the reference point (Ka,r) 15.61 mGy 1 5.61 mGy 0 mGy Resolved Problems Problem Noted Date Diagnosed Date Resolved Date Hyperkalemia 07/09/2024 07/10/2024 Syncope and collapse 09/04/2019 022 Assessment & Plan (09/04/2019 2:04 PM JR. SYSTEMS ADMINISTRATOR): Appears to be completely unrelated to hemodynamics. Pacemaker confirms no arrhythmias. Again informed patient to check blood pressure on extended episodes. Polycythemia 06/06/2019 09/21/2021 Shortness of breath 01/03/2019 09/21/19 22
--- OUTSIDE RECORDS SUMMARY | 2024-10-24 09:42 | XMS_ITS | Clinical Summary ---
Author Organization [facility] Address [address] [place] [address] Care Team Providers Care Roofing Subcontractor Name Role Phone Albert Hines MD Primary Care Provider Source Comments [facility],non-owned Affiliates and Associated Physician Practices is amultiple site organization consisting of ambulatory clinics and hospital sitesin [place], [place], [place] and [place]. This disclosure is being madepursuant to the Care Everywhere program and may not contain all information available regarding this patient. Last updated 18.[facility] Allergies Active Allergy Reactions Criticality Noted Date Comments Atorvastatin Myalgias Medium 01/03/2019 Codeine Palpitations Low 01/03/2019 Midodrine Itching,Psychiatric Medium 05/23/2020 Penicillin G Sodium Unknown 01/03/2019 Quinine Other Low 01/03/2019 Reaction when pt. Was a kid mother told her to stay away from it Medications * Be aware that medications may not be up to date on this document. Alwaysverify current medications with the patient. Medication Sig Dispensed Refills Start Date End Date Status aspirin EC (ECOTRIN) 81 MG tablet Take 1 (one) tablet by mouth once daily Active calcium carbonate - vitamin D (CALTRATE + D) 600-800 MG-UNIT tablet Take 1 (one) tablet by mouth once daily Active nebivolol (Bystolic) 5 MG tablet 4 (four) tablets once daily 01/08/2020 Active pantoprazole EC (PROTONIX) 40 MG tablet 1 (one) tablet once daily Active polyethylene glycol 3350 (MIRALAX) 17 g packet Take 17 (seventeen) g by mouth once daily Active warfarin (COUMADIN) 1 MG tablet Take 1 (one) tablet by mouth as directed 12/14/2019 Active metFORMIN (GLUCOPHAGE) 500 MG tablet 500 mg 2 times daily 08/25/2021 Active SYNTHROID 125 MCG tablet 1 (one) tablet once daily 07/30/2021 Active pyridostigmine (MESTINON) 60 MG tablet Take 1 (one) tablet by mouth every morning AND 0.5 (one-half) tablet every afternoon. 45 tablet 11 09/02/2021 Active albuterol HFA (Proventil; Ventolin; Proair) 108 (90 Base) MCG/ACT inhaler Inhale 2 (two) puffs by mouth every 6 hours as needed 10/26/2021 Active vitamin D3 (Cholecalciferol) 10 MCG (400 UNIT) capsule 1 (one) capsule Active losartan (Cozaar) 50 MG tablet Take 1 (one) tablet by mouth once daily 09/20/2022 Active LORazepam (Ativan) 1 MG tablet 1 (one) tablet as needed Takes before MRI 12/25/2021 Active Januvia 25 MG tablet Take 1 (one) tablet by mouth once daily 09/17/2022 Active midodrine (Proamatine) 5 MG tablet Take 1 (one) tablet by mouth 3 times daily before meals 90 tablet 11 10/04/2022 Active Active Problems Problem Noted Date Diagnosed Date High cholesterol Thyroid condition Atrial fibrillation Syncope Diverticulitis Family History Medical History Relation Name Comments Other Brother Heart problems Other Father Liver CA Cancer - Colon Mother AD Other Sister Pneumonia Relation Name Status Comments Brother Alive Father Mother Sister Social History Tobacco Use Types Packs/Day Years Used Date Smoking Tobacco: Every Day Smokeless Tobacco: Never Tobacco Cessation:Ready to Q uit: Not Asked; Counseling Given: No Alcohol Use Standard Drinks/Week Comments Not Currently 0 (1 standard drink = 0.6 oz pur e alcohol) Sex and Gender Information Value Date Recorded Sex Assigned at Female 08/30/2020 8:41 AM COMMERCIAL FLOOR COVERING INSTALLER Gender Identity Female 08/30/2020 8:41 AM COMMERCIAL FLOOR COVERING INSTALLER Sexual Orientation Straight 08/30/2020 8: 41 AM COMMERCIAL FLOOR COVERING INSTALLER Last Filed Vital Signs Vital Sign Reading Time Taken Comments Blood Pressure 169/85 10/04/2022 10:47 AM COMMERCIAL FLOOR COVERING INSTALLER Pulse 65 10/04/2022 10:47 AM COMMERCIAL FLOOR COVERING INSTALLER Temperature - - Respiratory Rate - - Oxygen Saturation - - Inhaled Oxygen Concentration - - Weight 69 kg (152 lb 1.9 oz) 10/04/2022 10:47 AM COMMERCIAL FLOOR COVERING INSTALLER Height 149.9 cm (4' 11 ) 10/04/2022 10:47 AM COMMERCIAL FLOOR COVERING INSTALLER Body Mass Index 30.72 10/04/2022 10:47 AM COMMERCIAL FLOOR COVERING INSTALLER Plan of Treatment Health Maintenance Due Date Last Done Comments BONE DENSITY TESTING 1945 MEDICARE AWV 12 MONTHS 1945 HEPATITIS C SCREENING 03/12/1965 DTAP/TDAP/TD VACCINES (1 - Tdap) 1966 PNEUMOCOCCAL VACCINE 50+ (1 of 2 - PCV) 1966 ZOSTER VACCINE (1 of 2) 1997 Respiratory Syncytial Virus (RSV) Vaccine Pt: or over 60 yrs (1 - 1-dose 75+ series) 2022 COVID-19 VACCINE ( - 2023- season) 2024 INFLUENZA VACCINE (#1) 2024 0, 06/05/2016, 07/11/2015, Additional history exists DEPRESSION SCREENING 08/29/2024 HEPATITIS B VACCINE Aged Out No longe r eligible based on patient's age to complete this topic HIB VACCINE Aged Out No longer eligi ble based on patient's age to complete this topic HPV VACCINE Aged Out No longer eligi ble based on patient's age to complete this topic MENINGOCOCCAL (Group B) VACCINE Aged Out No longer eligible based on patient's age to complete this topic MENINGOCOCCAL VACCINE Aged Out No mariano vania eligible based on patient's age to complete this topic Care Teams Roofing Subcontractor Relationship Specialty Start Date End Date Albert Hines MD PCP - General 08/03/19
--- OUTSIDE RECORDS SUMMARY | 2024-10-24 09:42 | XMS_ITS | Encounter Summary ---
Author Organization [facility] Facility Care Team Providers Care Plate And Weld Inspector Name Role Phone Jessica Jerez Primary Care Provider + [phone] Yoanna Lim LPN Unavailable [phone] Dexter Hines MD Primary Care Provider [phone] Jessica Jerez Primary Care Provider + [phone] Dexter Hines MD Primary Care Provider [phone] Kaitlin Patterson MD Unavailable [phone] Dylon Cruz MD Unavailable [phone] Dylon Cruz MD Unavailable [phone] Dexter Hines MD Primary Care Provider [phone] Andriy Herndon MD PhD Unavailable [phone] Eder Jaffe MD Unavailable [phone] Wagner Villatoro MD Unavailable [phone] Faazl Baird MD Unavailable [phone] Fazal Cordero MD Primary Care Provider Hayden Miller DO Primary Care Provider [phone] Christopher Dubon MD Unavailable + [phone] Wagner Villatoro MD Unavailable [phone] Eder Jaffe MD Unavailable Andriy Herndon MD PhD Unavailable Clifton De MD Unavailable Jacob Ko MD Unavailable Encounter Details Date Type Department Care Team (Latest Contact Info) Description 10/15/2016 Orders Only [facility] CLINCONV Provider, MD Bairon [address] [place] [address] Social History Tobacco Use Types Packs/Day [...] Date/Time Associated Diagnosis Comments SCAN - LABS 10/25/2016 12:00 AM BEVERAGE SERVER documented in this encounter Results * SCAN - LABS (10/25/2016 12:00 AM BEVERAGE SERVER) Narrative 10/25/2016 12:00 AM BEVERAGE SERVER Ordered by an unspecified provider. Historical Provider Final Res ult documented in this encounter Visit Diagnoses Not on filedocumented in this encounter Additional Health Concerns Infection Onset Date Last Indicated Resolved Time Ring Surveillance Comment:07/07/24 admitted to [facility] ring surveillance room. ML 07/12/24 negative [facility] result. ML 07/07/2024 07/07/2024 07/12/2024 1:[address] documented as of this encounter Care Teams Plate And Weld Inspector Relationship Specialty Start Date End Date Jessica Jerez PA [address] [place] [address] PCP - General Critical Care Med 07/06/18 11/21/18 Dexter Hines MD [address] [place] [address] PCP - General 11/22/18 12/21/18 Jessica Jerez PA [address] [place] [address] PCP - General Critical Care Med 12/22/18 01/22/19 Dexter Hines MD [address] [place] [address] PCP - General Internal Medicine 01/23/19 07/04/19 Dexetr Hines MD [address] [place] [address] PCP - General 07/28/19 04/22/22 Fazal Cordero MD [address] [facility] [place] [address] PCP - General Orthopedic Surgery 04/23/22 05/05/22 Hayden Miller DO [address] [facility] [place] [address] PCP - General Family Medicine 05/06/22 Yoanna Lim, BIOMEDICAL ENGINEERING PROFESSOR [address] [place] [address] Pharmaceutical Operator 07/06/18 07/06/18 Kaitlin Patterson MD [address] [place] [address] Afternoon Nanny Interventional Cardiology 05/22/19 08/11/23 Dylon Cruz MD [address] [place] [address] Rail Splitter Medical Oncology 06/27/19 10/14/21 Dylon Cruz MD [address] [place] [address] Medical Oncologist/Hematologis t Medical Oncology 06/27/19 10/14/21 Andriy Herndon MD PhD [address] [place] [address] MEDICAL ONCOLOGY, [address] [address] Consulting Physician Medical Oncology 10/15/21 4 Eder Jaffe MD [address] [facility] [place] [address] [place] [address] Consulting Physician Pulmonary Disease 10/15/21 Wagner Villatoro MD [address] [facility] [place] [address] [place] [address] [id number] Radiation Oncologist Radiation Oncology 10/21/21 Fazal Baird MD [address] [place] [address] Consulting Physician Cardiothoracic Surgery 10/21/21 Christopher Dubon MD [address] [facility] [place] [address] [address] Consulting Physician Cardiology 08/12/23 Wagner Villatoro MD [address] [place] [address] [address] [place] [address] Radiation Oncologist Radiation Oncology 10/25/23 Eder Jaffe MD [address] [facility] [place] [address] [place] [address] Surgeon Pulmonary Disease 01/10/24 Andriy Herndon MD PhD [address] [place] [address] Consulting Physician Medical Oncology 05/22/24 Clifton De MD [address] [place] [address] 553699 Consulting Physician Pain Management 05/25/24 Jacob Ko MD [address] [facility] [place] [address] Consulting Physician Cardiology 05/25/24 documented as of this encounter
--- OUTSIDE RECORDS SUMMARY | 2024-10-24 09:42 | XMS_ITS | Referral Summary ---
Author Organization [facility] Address [address] [facility] [place] [address] Care Team Providers Care Clerical Assistant Name Role Phone Albert Hines MD Primary Care Provider Source Comments [facility],non-owned Affiliates and Associated Physician Practices is amultiple site organization consisting of ambulatory clinics and hospital sitesin [place], [place], [place] and [place]. This disclosure is being madepursuant to the Care Everywhere program and may not contain all information available regarding this patient. Last updated 18.[facility] [employer] Allergies Active Allergy Reactions Criticality Noted Date [...] cholesterol Thyroid condition Atrial fibrillation Syncope Diverticulitis Social History Tobacco Use Types Packs/Day Years Used Date Smoking Tobacco: Every Day Smokeless Tobacco: Never Tobacco Cessation:Ready to Q uit: Not Asked; Counseling Given: No Alcohol Use Standard Drinks/Week Comments Not Currently 0 (1 standard drink = 0.6 oz pur e alcohol) Sex and Gender Information Value Date Recorded Sex Assigned at Female 08/30/2020 8:41 AM SALES SERVICE EXECUTIVE Gender Identity Female 08/30/2020 8:41 AM SALES SERVICE EXECUTIVE Sexual Orientation Straight 08/30/2020 8: 41 AM SALES SERVICE EXECUTIVE Last Filed Vital Signs Vital Sign Reading Time Taken Comments Blood Pressure 169/85 10/04/2022 10:47 AM SALES SERVICE EXECUTIVE Pulse 65 10/04/2022 10:47 AM SALES SERVICE EXECUTIVE Temperature - - Respiratory Rate - - Oxygen Saturation - - Inhaled Oxygen Concentration - - Weight 69 kg (152 lb 1.9 oz) 10/04/2022 10:47 AM SALES SERVICE EXECUTIVE Height 149.9 cm (4' 11 ) 10/04/2022 10:47 AM SALES SERVICE EXECUTIVE Body Mass Index 30.72 10/04/2022 10:47 AM SALES SERVICE EXECUTIVE Plan of Treatment Not on file Care Teams Clerical Assistant Relationship Specialty Start Date End Date Albert Hines MD PCP - General 08/03/19
--- OUTSIDE RECORDS SUMMARY | 2024-10-24 09:42 | XMS_ITS | Encounter Summary ---
Author Organization [facility] Facility Care Team Providers Care Plant Safety Engineer Name Role Phone Jessica Jerez Primary Care Provider + [phone] Yoanna Lim LPN Unavailable [phone] Dexter Hines MD Primary Care Provider [phone] Jessica Jerez Primary Care Provider + [phone] Dexter Hines MD Primary Care Provider [phone] Kaitlin Patterson MD Unavailable [phone] Dylon Cruz MD Unavailable [phone] Dylon Cruz MD Unavailable [phone] Dexter Hines MD Primary Care Provider [phone] Andriy Herndon MD PhD Unavailable [phone] Eder Jaffe MD Unavailable [phone] Wagner Villatoro MD Unavailable [phone] Fazal Baird MD Unavailable [phone] Fazal Cordero MD Primary Care Provider Hayden Miller DO Primary Care Provider [phone] Christopher Dubon MD Unavailable + [phone] Wagner Villatoro MD Unavailable [phone] Eder Jaffe MD Unavailable [phone] Andriy Herndon MD PhD Unavailable Clifton De MD Unavailable Jacob Ko MD Unavailable [phone] Encounter Details Date Type Department Care Team (Latest Contact Info) Description 07/29/2016 Orders Only [facility] CLINCONV ProviderBairon MD [address] [place] [address] Social History Tobacco Use Types Packs/Day [...] Priority Date/Time Associated Diagnosis Comments CARDIOLOGY REPORT 08/06/2016 12: 00 AM BONE DRIER documented in this encounter Results * CARDIOLOGY REPORT (08/06/2016 12:00 AM BONE DRIER) Anatomical Region Laterality Modality Other Narrative 08/06/2016 12:00 AM BONE DRIER Ordered by an unspecified provider. Historical Provider [...] documented as of this encounter Care Teams Plant Safety Engineer Relationship Specialty Start Date End Date Jessica Jerez PA [address] [place] [address] PCP - General Critical Care Med 07/06/18 11/21/18 Dexter Hines MD [address] [place] [address] PCP - General 11/22/18 12/21/18 Jessica Jerez PA [address] [place] [address] PCP - General Critical Care Med 12/22/18 01/22/19 Dexter Hines MD [address] [place] [address] PCP - General Internal Medicine 01/23/19 07/04/19 Dexter Hines MD [address] [place] [address] PCP - General 07/28/19 04/22/22 Fazal Cordero MD [address] [place] [address] PCP - General Orthopedic Surgery 04/23/22 05/05/22 Hayden Miller DO [address] [place] [address] PCP - General Family Medicine 05/06/22 Yoanna Lim, DRIVER'S LICENSE REVIEWING OFFICER [address] [facility] [facility] [address] [place] [address] Leak Inspector 07/06/18 07/06/18 Kaitlin Patterson MD [address] [place] [address] Visual And Stock Associate Interventional Cardiology 05/22/19 08/11/23 Dylon Cruz MD [address] [place] [address] Call Center Agent Medical Oncology 06/27/19 10/14/21 Dylon Cruz MD [address] [place] [address] Medical Oncologist/Hematologis t Medical Oncology 06/27/19 10/14/21 Andriy Herndon MD PhD [address] [place] [address] MEDICAL ONCOLOGY, [address] [address] Consulting Physician Medical Oncology 10/15/21 4 Eder Jaffe MD [address] [facility] [address] [place] [address] [place] [address] Consulting Physician Pulmonary Disease 10/15/21 Wagner Villatoro MD [facility] [facility] [address] [place] [address] Radiation Oncologist Radiation Oncology 10/21/21 Fazal Baird MD [address] [place] [address] Consulting Physician Cardiothoracic Surgery 10/21/21 Christopher Dubon MD [address] [facility] [address] [address] Consulting Physician Cardiology 08/12/23 Wagner Villatoro MD [address] [place] [address] Radiation Oncologist Radiation Oncology 10/25/23 Eder Jaffe MD [address] [facility] [address] [place] [address] [place] [address] Surgeon Pulmonary Disease 01/10/24 Andriy Herndon MD PhD [address] [place] [address] Consulting Physician Medical Oncology 05/22/24 Clifton De MD [address] [place] [address] 550469 Consulting Physician Pain Management 05/25/24 Jacob Ko MD [address] [facility] [address] [address] Consulting Physician Cardiology 05/25/24 documented as of this encounter
--- OUTSIDE RECORDS SUMMARY | 2024-10-24 09:42 | XMS_ITS | Encounter Summary ---
Author Organization [facility] Facility Care Team Providers Care Leg Assembler Name Role Phone Jessica Jerez Primary Care Provider + [phone] Yoanna Lim LPN Unavailable +[phone] Dexter Hines MD Primary Care Provider [phone] Jessica Jerez Primary Care Provider + [phone] Dexter Hines MD Primary Care Provider [phone] Kaitlin Patterson MD Unavailable [phone] Dylon Cruz MD Unavailable [phone] Dylon Cruz MD Unavailable [phone] Dexter Hines MD Primary Care Provider [phone] Andriy Herndon MD PhD Unavailable [phone] Eder Jaffe MD Unavailable [phone] Wagner Villatoro MD Unavailable [phone] Fazal Baird MD Unavailable Fazal Cordero MD Primary Care Provider Hayden Miller DO Primary Care Provider [phone] Christopher Dubon MD Unavailable + [phone] Wagner Villatoro MD Unavailable [phone] Eder Jaffe MD Unavailable [phone] Andriy Herndon MD PhD Unavailable Clifton De MD Unavailable Jacob Ko MD Unavailable Encounter Details Date Type Department Care Team (Latest Contact Info) Description 07/10/2014 Orders Only [facility] CLINCONV Provider, MD Bairon [address] [place] [address] Social History Tobacco Use Types Packs/Day [...] Procedure Name Priority Date/Time Associated Diagnosis Comments COLONOSCOPY - SCAN 07/10/2014 12 :00 AM HUMIDIFIER OPERATOR documented in this encounter Results * COLONOSCOPY - SCAN (07/10/2014 12:00 AM HUMIDIFIER OPERATOR) Narrative 07/10/2014 12:00 AM HUMIDIFIER OPERATOR Ordered by an unspecified provider. Historical [...] documented as of this encounter Care Teams Leg Assembler Relationship Specialty Start Date End Date Jessica Jerez PA [address] [place] [address] PCP - General Critical Care Med 07/06/18 11/21/18 Dexter Hines MD [address] [place] [address] PCP - General 11/22/18 12/21/18 Jessica Jerez PA [address] [place] [address] PCP - General Critical Care Med 12/22/18 01/22/19 Dexter Hines MD [address] [place] [address] PCP - General Internal Medicine 01/23/19 07/04/19 Dexter Hines MD [address] [place] [address] PCP - General 07/28/19 04/22/22 Fazal Cordero MD [address] [facility] [address] PCP - General Orthopedic Surgery 04/23/22 05/05/22 Hayden Miller DO [address] [facility] [address] PCP - General Family Medicine 05/06/22 Yoanna Lim, CLEARING HOUSE CLERK [address] [facility] [address] [place] [address] Fuel Attendant 07/06/18 07/06/18 Kaitlin Patterson MD [address] [place] [address] Manufacturing Executive Interventional Cardiology 05/22/19 08/11/23 Dylon Cruz MD [address] [place] [address] Machine Packaging Technician Medical Oncology 06/27/19 10/14/21 Dylon Cruz MD [address] [place] [address] Medical Oncologist/Hematologis t Medical Oncology 06/27/19 10/14/21 Andriy Herndon MD PhD [address] [place] [address] MEDICAL ONCOLOGY, [address] [address] Consulting Physician Medical Oncology 10/15/21 4 Eder Jaffe MD [address] [facility] [address] [place] [address] Consulting Physician Pulmonary Disease 10/15/21 Wagner Villatoro MD [address] [facility] [address] [place] [address] [id number] Radiation Oncologist Radiation Oncology 10/21/21 Fazal Baird MD [address] [place] [address] Consulting Physician Cardiothoracic Surgery 10/21/21 Christopher Dubon MD [address] [facility] [address] [address] Consulting Physician Cardiology 08/12/23 Wagner Villatoro MD [address] [place] [address] [address] [place] [address] Radiation Oncologist Radiation Oncology 10/25/23 Eder Jaffe MD [address] [facility] [address] [place] [address] Surgeon Pulmonary Disease 01/10/24 Andriy Herndon MD PhD [address] [place] [address] Consulting Physician Medical Oncology 05/22/24 Clifton De MD [address] [place] [address] 687339 Consulting Physician Pain Management 05/25/24 Jacob Ko MD [address] [facility] [place] [address] Consulting Physician Cardiology 05/25/24 documented as of this encounter
--- OUTSIDE RECORDS SUMMARY | 2024-10-24 09:42 | XMS_ITS | Encounter Summary ---
Author Organization [facility] Facility Care Team Providers Care Gas Station Clerk Name Role Phone Jessica Jerez Primary Care Provider + [phone] Yoanna Lim LPN Unavailable [phone] Dexter Hines MD Primary Care Provider [phone] Jessica Jerez Primary Care Provider + [phone] Dexter Hines MD Primary Care Provider [phone] Kaitlin Patterson MD Unavailable [phone] Dylon Cruz MD Unavailable [phone] Dylon Cruz MD Unavailable [phone] Dexter Hines MD Primary Care Provider [phone] Andriy Herndon MD PhD Unavailable [phone] Eder Jaffe MD Unavailable [phone] Wagner Villatoro MD Unavailable [phone] Fazal Baird MD Unavailable [phone] Fazal Cordero MD Primary Care Provider [phone] Hayden Miller DO Primary Care Provider [phone] Christopher uDbon MD Unavailable + [phone] Wagner Villatoro MD Unavailable [phone] Eder Jaffe MD Unavailable Andriy Herndon MD PhD Unavailable [phone] Clifton De MD Unavailable Jacob Ko MD Unavailable [phone] Encounter Details Date Type Department Care Team (Latest Contact Info) Description 10/20/2016 Orders Only [facility] CLINCONV ProviderBairon MD [address] [place] [address] Social History Tobacco Use Types Packs/Day [...] Priority Date/Time Associated Diagnosis Comments CARDIOLOGY REPORT 10/20/2016 12: 00 AM INDUSTRIAL MAINTENANCE MANAGER documented in this encounter Results * CARDIOLOGY REPORT (10/20/2016 12:00 AM INDUSTRIAL MAINTENANCE MANAGER) Anatomical Region Laterality Modality Other Narrative 10/20/2016 12:00 AM INDUSTRIAL MAINTENANCE MANAGER Ordered by an unspecified provider. Historical Provider [...] documented as of this encounter Care Teams Gas Station Clerk Relationship Specialty Start Date End Date Jessica Jerez PA [address] [place] [address] PCP - General Critical Care Med 07/06/18 11/21/18 Dexter Hines MD [address] [place] [address] PCP - General 11/22/18 12/21/18 Jessica Jerez PA [address] [place] [address] PCP - General Critical Care Med 12/22/18 01/22/19 Dexter Hines MD [address] [place] [address] PCP - General Internal Medicine 01/23/19 07/04/19 Dexter Hines MD [address] [place] [address] PCP - General 07/28/19 04/22/22 Fazal Cordero MD [address] [facility] [place] [address] PCP - General Orthopedic Surgery 04/23/22 05/05/22 Hayden Miller DO [address] [facility] [place] [address] PCP - General Family Medicine 05/06/22 Yoanna Lim, MANAGER MANAGING [address] [place] [address] Customer Service Manager 07/06/18 07/06/18 Kaitlin Patterson MD [address] [place] [address] Pulmonary Function Technician Interventional Cardiology 05/22/19 08/11/23 Dylon Cruz MD [address] [place] [address] District Service Manager Medical Oncology 06/27/19 10/14/21 Dylon Cruz MD [address] [place] [address] Medical Oncologist/Hematologis t Medical Oncology 06/27/19 10/14/21 Andriy Herndon MD PhD [address] [place] [address] MEDICAL ONCOLOGY, [address] [address] Consulting Physician Medical Oncology 10/15/21 4 Eder Jaffe MD [address] [facility] [address] [place] [address] [place] [address] Consulting Physician Pulmonary Disease 10/15/21 Wagner Villatoro MD [facility] [facility] [address] [place] [place] [address] Radiation Oncologist Radiation Oncology 10/21/21 Fazal Baird MD [address] [place] [address] Consulting Physician Cardiothoracic Surgery 10/21/21 Christopher Dubon MD [address] [facility] [address] [place] [address] Consulting Physician Cardiology 08/12/23 Wagner Villatoro MD [address] [place] [address] Radiation Oncologist Radiation Oncology 10/25/23 Eder Jaffe MD [address] [facility] [address] [place] [place] [address] Surgeon Pulmonary Disease 01/10/24 Andriy Herndon MD PhD [address] [place] [address] Consulting Physician Medical Oncology 05/22/24 Clifton De MD [address] [place] [id number] Consulting Physician Pain Management 05/25/24 Jacob Ko MD [address] [facility] [address] [address] Consulting Physician Cardiology 05/25/24 documented as of this encounter
--- OUTSIDE RECORDS SUMMARY | 2024-10-24 09:42 | XMS_ITS | Encounter Summary ---
Author Organization [facility] Facility Care Team Providers Care Goldsmith Apprentice Name Role Phone Jessica Jerez Primary Care Provider + [phone] Yoanna Lim LPN Unavailable [phone] Dexter Hines MD Primary Care Provider [phone] Jessica Jerez Primary Care Provider + [phone] Dexter Hines MD Primary Care Provider [phone] Kaitlin Patterson MD Unavailable [phone] Dylon Cruz MD Unavailable [phone] Dylon Cruz MD Unavailable [phone] Dexter Hines MD Primary Care Provider [phone] Andriy Herndon MD PhD Unavailable [phone] Eder Jaffe MD Unavailable [phone] Wagner Villatoro MD Unavailable [phone] Fazal Baird MD Unavailable [phone] Fazal Cordero MD Primary Care Provider Hayden Miller DO Primary Care Provider [phone] Christopher Dubon MD Unavailable + [phone] Wagner Villatoro MD Unavailable [phone] Eder Jaffe MD Unavailable Andriy Herndon MD PhD Unavailable Clifton De MD Unavailable Jacob Ko MD Unavailable [phone] Encounter Details Date Type Department Care Team (Latest Contact Info) Description 08/11/2015 Orders Only [facility] CLINCONV ProviderBairon MD [address] [place] [address] Social History Tobacco Use Types Packs/Day [...] Priority Date/Time Associated Diagnosis Comments CARDIOLOGY REPORT 03/12/2016 12: 00 AM CDT documented in this encounter Results * CARDIOLOGY REPORT (03/12/2016 12:00 AM CDT) Anatomical Region Laterality Modality Other Narrative 03/12/2016 12:00 AM CDT Ordered by an unspecified [...] documented as of this encounter Care Teams Goldsmith Apprentice Relationship Specialty Start Date End Date Jessica Jerez PA [address] [place] [address] PCP - General Critical Care Med 07/06/18 11/21/18 Dexter Hines MD [address] [place] [address] PCP - General 11/22/18 12/21/18 Jessica Jerez PA [address] [place] [address] PCP - General Critical Care Med 12/22/18 01/22/19 Dexter Hines MD [address] [place] [address] PCP - General Internal Medicine 01/23/19 07/04/19 Dexter Hines MD [address] [place] [address] PCP - General 07/28/19 04/22/22 Fazal Cordero MD [address] [facility] [address] PCP - General Orthopedic Surgery 04/23/22 05/05/22 Hayden Miller DO [address] [facility] [place] [address] PCP - General Family Medicine 05/06/22 Yoanna Lim, DOPE FIRER [address] [place] [address] [address] [place] [address] Collar Setter 07/06/18 07/06/18 Kaitlin Patterson MD [address] [place] [address] Billing Department Supervisor Interventional Cardiology 05/22/19 08/11/23 Dylon Cruz MD [address] [place] [address] Program Aide Medical Oncology 06/27/19 10/14/21 Dylon Cruz MD [address] [place] [address] Medical Oncologist/Hematologis t Medical Oncology 06/27/19 10/14/21 Andriy Herndon MD PhD [address] [place] [address] MEDICAL ONCOLOGY, [address] [address] Consulting Physician Medical Oncology 10/15/21 4 Eder Jaffe MD [address] [facility] [address] [place] [address] Consulting Physician Pulmonary Disease 10/15/21 Wagner Villatoro MD [facility] [address] [place] [address] Radiation Oncologist Radiation Oncology 10/21/21 Fazal Baird MD [address] [place] [address] Consulting Physician Cardiothoracic Surgery 10/21/21 Christopher Dubon MD [address] [facility] [address] [address] Consulting Physician Cardiology 08/12/23 Wagner Villatoro MD [address] [place] [address] Radiation Oncologist Radiation Oncology 10/25/23 Eder Jaffe MD [address] [facility] [address] [place] [address] Surgeon Pulmonary Disease 01/10/24 Andriy Herndon MD PhD [address] [place] [address] [id number] Consulting Physician Medical Oncology 05/22/24 Clifton De MD [address] [place] [address] [id number] Consulting Physician Pain Management 05/25/24 Jacob Ko MD [address] [facility] [address] [address] Consulting Physician Cardiology 05/25/24 documented as of this encounter
--- OUTSIDE RECORDS SUMMARY | 2024-10-24 09:42 | XMS_ITS | Patient Health Summary ---
Author Organization [facility] Address [address] [facility] [place] [place] [address] Care Team Providers Care Consultant Rn Name Role Phone Albert Hines MD Primary Care Provider Note from [facility],non-owned Affiliates and Associated Physician Practices is amultiple site organization consisting of ambulatory clinics and hospital sitesin [place], [place], [place]. This disclosure is being madepursuant to the Care Everywhere program and may not contain all information available regarding this patient. Last updated 18.[facility] Allergies * Atorvastatin(Myalgias) -Medium Criticality * Codeine(Palpitations) -Low Criticality * Midodrine(Itching,Psychiatric) -Medium Criticality * Penicillin G Sodium(Unknown) * Quinine(Other) -Low Criticality Medications * Be aware that medications may not be up to date on this document. Alwaysverify current medications with the patient. * aspirin EC (ECOTRIN) 81 MG tablet Take 1 (one) tablet by mouth once daily * calcium carbonate - vitamin D (CALTRATE + D) 600-800 MG-UNIT tablet Take 1 (one) tablet by mouth once daily * nebivolol (Bystolic) 5 MG tablet(Started 01/08/2020) 4 (four) tablets once daily * pantoprazole EC (PROTONIX) 40 MG tablet 1 (one) tablet once daily * polyethylene glycol 3350 (MIRALAX) 17 g packet Take 17 (seventeen) g by mouth once daily * warfarin (COUMADIN) 1 MG tablet(Started 12/14/2019) Take 1 (one) tablet by mouth as directed * metFORMIN (GLUCOPHAGE) 500 MG tablet(Started 08/25/2021) 500 mg 2 times daily * SYNTHROID 125 MCG tablet(Started 07/30/2021) 1 (one) tablet once daily * pyridostigmine (MESTINON) 60 MG tablet(Started 09/02/2021) Take 1 (one) tablet by mouth every morning AND 0.5 (one-half) tablet every afternoon. 11 refills by 09/02/2022 * albuterol HFA (Proventil; Ventolin; Proair) 108 (90 Base) MCG/ACT inhaler (Started 10/26/2021) Inhale 2 (two) puffs by mouth every 6 hours as needed * vitamin D3 (Cholecalciferol) 10 MCG (400 UNIT) capsule 1 (one) capsule * losartan (Cozaar) 50 MG tablet(Started 09/20/2022) Take 1 (one) tablet by mouth once daily * LORazepam (Ativan) 1 MG tablet(Started 12/25/2021) 1 (one) tablet as needed Takes before MRI * Januvia 25 MG tablet(Started 09/17/2022) Take 1 (one) tablet by mouth once daily * midodrine (Proamatine) 5 MG tablet(Started 10/04/2022) Take 1 (one) tablet by mouth 3 times daily before meals 11 refills by 10/04/2023 Active Problems Problem Noted Date Diagnosed Date [...] Sex Assigned at Female 08/30/2020 8:41 AM ACUTE CARE ASSISTANT Gender Identity Female 08/30/2020 8:41 AM ACUTE CARE ASSISTANT Sexual Orientation Straight 08/30/2020 8: 41 AM ACUTE CARE ASSISTANT Last Filed Vital Signs Vital Sign Reading Time Taken Comments Blood Pressure 169/85 10/04/2022 10:47 AM ACUTE CARE ASSISTANT Pulse 65 10/04/2022 10:47 AM ACUTE CARE ASSISTANT Temperature - - Respiratory Rate - - Oxygen Saturation - - Inhaled Oxygen Concentration - - Weight 69 kg (152 lb 1.9 oz) 10/04/2022 10:47 AM ACUTE CARE ASSISTANT Height 149.9 cm (4' 11 ) 10/04/2022 10:47 AM ACUTE CARE ASSISTANT Body Mass Index 30.72 10/04/2022 10:47 AM ACUTE CARE ASSISTANT Procedures * TILT TABLE TEST WITH AUTONOMIC STUDIES(Performed 06/26/2020) Performed for Syncope and collapse * SARS-COV-2 (COVID-19) IN HOUSE(Performed 06/23/2020) Performed for Pre-procedural examination * SARS-COV2 (COVID-19) PANEL (STL)(Performed 06/23/2020) Performed for Pre-procedural examination Results * TILT TABLE TEST WITH AUTONOMIC STUDIES (06/26/2020 9:00 AM CDT) Narrative Zoya Garcia MD - 06/26/2020 9:00 AM CDT Zoya Garcia MD 06/27/2020 9:52 AM Autonomic Laboratory Studies May, 11:26:47 AM Testing Facility [facility], [facility] [address] [place] [address] Reason for Referral: Syncope Patient Profile Visit Remarks: 75yoFemale referred for Syncope. Started about 1yr ago. Sx - Tired, eyes heavy, Film over eyes, LOC. LOC can happen with no warning. Tired, Prolong standing or walking, Heat can trigger sx's. Sitting, preferrably lying down can improve sx's and prevent LOC. Meds - Vastatin (none 48hrs) ID: [id number] Name: Mackenzie Snowden Referring: Paz Do Sex: Female Birthdate: 1945 Attending: Zoya Garcia M.D. Height: 59 in Weight: 160 lbs Primary: Impression: TTT demonstrates no evidence of POTS, OH or vasovagal syncope. HRDB and Valsalva ratio are <5th percentile. Baroreflex shows impaired Phase II/IV. Qsweat shows distal anhidrosis. 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 Director, Clinical Neurophysiology Time: 06/26/2020 9:52 AM Test Notes: pace maker w/ pvc's. No change in baseline upon standing. 10-Hip pain level 3. Tired. 18-eyes rolling. tired. 33-Tired w/ eye rolls. Test Tilt Test - Version Date 3 Servicer: Sterling Camacho Analysis Tilt (ECG) Analysis - Version Date 3 Paz Do SOLAR SALES ESTIMATOR-DARK ROOM ATTENDANT NEUROLOGY ORD ERABLES * SARS-COV-2 (COVID-19) IN HOUSE (06/23/2020 10:16 AM CDT) COVID-19 PCR Not detected Not detected 06/23/2020 4:[address] [facility] Microbiology SPECIMEN FROM NASOPHARYNGEAL STRUCTURE / Unknown Collection / Unknown 06/23/2020 10:16 AM CDT 06/23/2020 10:[address] [facility] - 06/23/2020 4:50 PM CDT This nucleic acid amplification assay performance was validated by [facility]. This test has been authorized by the Food and Drug administration (FDA)under an Emergency Use Authorization (EUA). This test has been validated in accordance with the FDA's guidance document Policy for Diagnostic Testing in Laboratories Certified to perform High Complexity Testing under CLIA prior to Emergency Use Authorization for Coronavirus Disease-2019 during the Public Health Emergency issued on October 27, 2019. FDA independent review of this validation is pending. This test is only authorized for the duration of time the declaration that circumstances exist justifying the authorization of emergency use of in vitro diagnostic tests for detection of SARS-CoV-2 virus and/or diagnosis of COVID-19 infection under section 564(b)(1) of the Act, 21 U.S.C 360bbb-3 (b)(1), unless the authorization is terminated or revoked sooner. Fact Sheets for this EUA assay are available upon request. Zoya Garcia MD LAB - MICROBIOLOGY ORDERABLES [facility] [address] [place] [address], [facility] [phone] Care Teams Consultant Rn Relationship Specialty Start Date End Date Albert Hines MD [facility] - General 08/03/19
--- OUTSIDE RECORDS SUMMARY | 2024-10-24 09:42 | XMS_ITS | Referral Summary ---
Author Organization [facility] Address [address] [place] [address] Care Team Providers Care Campaign Developer Name Role Phone Eder Jaffe MD Unavailable [phone] Fazal Baird MD Unavailable [phone] Hayden Miller DO Primary Care Provider [phone] Christopher Dubon MD Unavailable Wagner Villatoro MD Unavailable [phone] Eder Jaffe MD Unavailable [phone] Andriy Herndon MD PhD Unavailable Clifton De MD Unavailable Jacob Ko MD Unavailable [phone] Encounters Date Type Department Care Team Description 09/05/2024 8:00 AM WARES SORTER Ancillary Procedure [facility] Cardiology [address] [facility] [address] [place] [address] Pacemaker; Permanent atrial fibrillation (CMS/HCC) (HCC); SSS (sick sinus syndrome) (CMS/HCC) (HCC) 08/27/2024 Telephone [facility] [address] [place] [address] Kahty Donohue MD 08/27/2024 Anticoagulation Telephone Call [facility] [address] [facility] [address] [place] [phone] Kathy Donohue MD Atrial fibrillation (CMS/HCC) (HCC) (Primary Dx) 08/23/2024 7:55 AM WARES SORTER Lab [facility] Lab [address] [place] [address] Permanent atrial fibrillation (CMS/HCC) (HCC) 08/13/2024 Telephone [facility] [address] [place] [address] [place] [phone] Kathy Donohue MD 08/08/2024 Telephone [facility] [address] [place] [phone] Kathy Donohue MD 08/08/2024 Anticoagulation Visit [facility] [address] [place] [phone] Willie Edison, MA Atrial fibrillation (CMS/HCC) (HCC) (Primary Dx) 08/07/2024 Telephone [facility] Oncology [address] [place] [address] [phone] Cassie Mccollum, [facility] 08/07/2024 8:45 AM WARES SORTER Clinical Support [facility] [place] [facility] [address] [place] [address] Squamous cell carcinoma lung, right (HCC); Permanent atrial fibrillation (CMS/HCC) (HCC); Anticoagulation management encounter 08/07/2024 9:15 AM WARES SORTER Office Visit [facility] Oncology [address] [place] [address] [address] [place] [address] Andriy Herndon MD PhD Squamous cell carcinoma lung, right (HCC) (Primary Dx) 08/04/2024 Orders Only [facility] [address] [place] [address] [place] [address] [phone] Kathy Donohue MD 08/02/2024 Telephone [facility] [address] [place] [address] Kathy Donhoue MD [facility] 08/02/2024 Anticoagulation Visit [facility] [address] [facility] [address] [place] [address] Christina Tapia MA Atrial fibrillation (CMS/HCC) (HCC) (Primary Dx) 08/02/2024 Telephone [facility] [address] [facility] [address] [place] [address] Kathy Donohue MD from Last 3 Months Allergies Active Allergy Reactions Criticality Noted Date [...] by mouth daily Active lancets 33 gauge [facility] OneTouch Delica Plus Lancet 33 gauge USE TO TEST ONCE A DAY Active blood glucose diagnostic (H.BLOOMuch Verio test strips) stripIndications: Diabetes Mellitus,Patient should [...] 5 mg tabletIndications :Atrial fibrillation, unspecified type ([facility]),Essential hypertension,Pace maker,EKG abnormalities Take 1 tablet (5 mg total) by mouth daily 90 tablet 3 01/26/20 24 2024 Active levothyroxine (SYNTHROID) 88 mcg tablet Take 1 tablet (88 mcg total) by mouth pediatric physical therapy assistant before breakfast Active ezetimibe (ZETIA) 10 mg tablet Take 1 tablet (10 mg total) by mouth daily 30 tablet 07/18/20 24 2024 Active dexAMETHasone oral liquid [...] adenopathy 08/11/2023 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 Underlying rhythm controlled AFib. 20% V paced 100% mode switch. Assessment & Plan (09/04/2019 1:52 PM WARES SORTER): Underlying rhythm today 2-1 flutter ventricular rate 110 beats per minute. Histograms during mode switch show controlled rate 100% mode switch. Excellent lead function. No other arrhythmias. Battery 5 years Assessment & Plan (02/20/2019 3:10 PM CDT): Check today shows normal function. Better life 6 years excellent lead function. 6% V pacing Anticoagulation management encounter 02/20/2019 Assessment & Plan (09/02/2020 1:50 PM WARES SORTER): Continue Coumadin. No bleeding Assessment & Plan (09/04/2019 2:03 PM WARES SORTER): Continue Coumadin. Assessment & Plan (02/20/2019 3:11 PM CDT): Continue Coumadin for thromboembolic risk reduction Atrial fibrillation (CMS/HCC) 12/07/2018 Assessment & Plan (09/02/2020 1:47 PM WARES SORTER): Persistent. Histogram show excellent rate control. Continue Bystolic continue Coumadin Assessment & Plan (09/04/2019 1:55 PM WARES SORTER): Permanent rate controlled. Would not make any [...] meds. Assessment & Plan (09/11/2019 10:07 AM WARES SORTER): Goal of treatment is a TSH within [...] therapy. Assessment & Plan (11/02/2023 8:40 AM WARES SORTER): The patient continue to wear her CPAP at 12 cm water pressure while sleeping. Her DME is [employer]. They are going to bring the SmartCard to [employer] for a download. Assessment & Plan (10/27/2022 1:59 PM WARES SORTER): Due to the patient having difficulty with the mask leaking while she sleeps I will decrease the patient's CPAP pressure to 12 cm water pressure while sleeping. Her DME is [employer]. Assessment & Plan (10/26/2021 2:06 PM WARES SORTER): The patient will continue with CPAP therapy at 14 cm water pressure. Patient denied need for supplies. DME [employer] Assessment & Plan (08/25/2021 1:38 PM WARES SORTER): Patient continue to wear her CPAP at [...] 03/12/2016 Assessment & Plan (09/02/2020 1:50 PM WARES SORTER): Well controlled Assessment & Plan (02/20/2019 3:19 [...] 022 Assessment & Plan (09/04/2019 2:04 PM WARES SORTER): Appears to be completely unrelated to hemodynamics. Pacemaker confirms no arrhythmias. Again informed patient to check blood pressure on extended episodes. Polycythemia 06/06/2019 09/21/2021 Shortness of breath 01/03/2019 09/21/19 22 Immunizations Immunization Administration Dates Next Due Influenza, Quadrivalent, Hig h Dose, Preservative Free, Intrr 05/16/2020 Influenza, Quadrivalent, Spl it, Preservative Free, Intramuscular 06/05/2016,07/11/2015 Influenza, Trivalent, Preservative Free, Intramu scular 04/29/2015 Influenza, Unspecified 06/08/2007 Pneumococcal Conjugate PCV 13 06/22/2018 Pneumococcal Polysaccharide PPV23 09/26/2014 Tdap 06/22/2018 ZOSTER LIVE 10/11/2013 Social History Tobacco Use Types Packs/Day Years Used Date Smoking Tobacco: Every Day Cigarettes 0.3 106.4 Started: 06/12/1971 Passive Smoke Exposure: Current Smokeless Tobacco: Never Tobacco Cessation:Ready to Q uit: Yes; Counseling Given: Not Answered Alcohol Use Standard Drinks/Week Comments Not Currently 0 (1 standard drink = 0.6 oz pur e alcohol) [facility] Utilities Answer Date Recorded In the past 12 months has [employer], oil, or water [employer] threatened to shut off services in your [...] week 07/09/2024 How often do you attend [facility] or sikhism services? More than 4 times per year 07/09/2024 Do you belong to any clubs o r organizations such as orthodoxy groups, unions, fraternal or athletic groups, or [...] any time in the past 12 m [facility], were you homeless or living in a care home (including now)? No 07/09/2024 Personal Safety Answer [...] Orientation Straight 04/11/2020 3: 04 PM CDT Last Filed Vital Signs Vital Sign Reading Time Taken Comments Blood Pressure 146/85 08/07/2024 9:16 AM WARES SORTER Pulse 64 08/07/2024 9:16 AM WARES SORTER Temperature 36.7 C (98 F) 08/07/2024 9:16 AM WARES SORTER Respiratory Rate 18 08/07/2024 9:16 AM WARES SORTER Oxygen Saturation 95% 08/07/2024 9:16 AM WARES SORTER Inhaled Oxygen Concentration - - Weight 63.2 kg (139 lb 6.4 oz) 08/07/2024 9:16 A M WARES SORTER Height 149.9 cm (4' 11 ) 07/06/2024 5:18 PM WARES SORTER Body Mass Index 28.16 07/06/2024 5:18 PM WARES SORTER Plan of Treatment Not on file Medical Devices Implanted Type Area Wine Cellar Worker Device Identifier Shelf Expiration Date Model / Serial / Lot Lead (Rv)-07/04/2018 Implanted:01/2018 by Kaitlin Patterson MD (Quantity not on file) Lead [employer] [id number] / [id number] / Lead (Ra)-07/04/2018 Implanted:01/2018 by Kaitlin Patterson MD (Quantity not on file) Lead [employer] [id number]/45 / [id number] / Pacemaker-07/04-[employer] Implanted:01/2018 by Kaitlin Patterson MD (Quantity not on file) Pacemaker Left: [employer] ESSENTIO [id number] / [id number] / Mitral Valve-06/24/20 15 Implanted:05/30 by Fazal Baird MD (Quantity not on file) Mitral Valve Medtronic [id number] / [id number] / [employer] Xcela Power Port 8fr [id number] - [id number] Implanted:Qty: 1 on 10/17/2023 at [facility] [employer] 07/02/2028 [id number] / / [id number] Procedures Procedure Name Priority Date/Time Associated Diagnosis Comments PROTIME-INR Routine 08/23/2024 8:06 AM WARES SORTER Permanent atrial fibrillation (CMS/HCC) (HCC) EGFR Routine 08/07/2024 8:51 AM WARES SORTER Squamous cell carcinoma lung, right (HCC) DIFFERENTIAL AUTO Routine 08/07/2024 8:5 1 AM WARES SORTER Squamous cell carcinoma lung, right (HCC) PROTIME-INR Routine 08/07/2024 8:51 AM WARES SORTER Permanent atrial fibrillation (CMS/HCC) (HCC) Anticoagulation management encounter CBC WITH AUTO DIFFERENTIAL Routine 08/07/2024 8:51 AM WARES SORTER Squamous cell carcinoma lung, right (HCC) COMPREHENSIVE METABOLIC PANEL Routine 08/07/2024 8:51 AM WARES SORTER Squamous cell carcinoma lung, right (HCC) LIPID PANEL Routine 01/26/2024 10:02 AM CDT Coronary artery disease involving platinum coronary artery 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 pectoris Dyslipidemia HEMOGLOBIN A1C Routine 01/02/2020 7:36 AM CDT Type 2 diabetes mellitus with stage 3 chronic kidney disease, without long-term current use of insulin (CMS/HCC) ALBUMIN CREATININE RATIO, URINE Routine 01/02/2020 7:36 AM CDT from Last 3 Months or Most Recently Relevant to Health Maintenance Results * (ABNORMAL) Protime-INR (08/23/2024 8:06 AM WARES SORTER) PT 28.4(H) 12.0 - 14.6 sec Comment: Ref Range High Testing performed by: [facility], [address] [place] [address]., [address] INR 2.7(H) 0.9 - 1.2 [place] Comment: Ref Range High Interpretive data Oral anticoagulant therapeutic ranges: Venous thromboembolism prophylaxis or treatment: 2.0-3.0 CARDIOLOGY Standard range: 2.0-3.0 High-intensity range: 2.5-3.5 Refer to indication-specific guidelines for appropriate target ranges for prosthetic heart valve replacement. Current interpretive data was last revised on 2019. Testing performed by: [address] [address] Blood 08/23/2024 8:06 AM WARES SORTER 08/23/2024 8:42 AM WARES SORTER us Kathy Donohue MD LAB BLOOD ORDERABL ES Final Result Performing Organization Address City/[facility] de Phone Number [place] [address] [facility] [place] [address] * eGFR (08/07/2024 8:51 AM WARES SORTER) eGFR 66 >=60 mL/min/1. 73 m2 Comment: [...] was last reviewed 2021. Testing performed by: [address] [address] Blood 08/07/2024 8:51 AM WARES SORTER 08/07/2024 8:56 AM WARES SORTER us Andriy Herndon MD PhD LAB BLOOD ORDERABLES Final Result Performing Organization Address City/State/[facility] Co de Phone Number [place] [address] [facility] [place] [address] * Differential, auto (08/07/2024 8:51 AM WARES SORTER) Neutrophil abs 6.2 1.5 - 6.5 K/cumm Comment:Testing performed by : [address] [address] Imm gran abs 0.0 0.0 - 0.1 K/cumm [place] Comment:Testing performed by : [address] [address] Lymphocyte abs 1.5 0.8 - 3.3 K/cumm [place] Comment:Testing performed by : [address] [address] Monocyte abs 0.7 0.2 - 0.8 K/cumm [place] Comment:Testing performed by : [address] [address] Eosinophil abs 0.1 0.0 - 0.5 K/cumm [place] Comment:Testing performed by : [address] [address] Basophil abs 0.1 0.0 - 0.1 K/cumm [place] Comment:Testing performed by : [address] [address] Neutrophil pct 71.9 % [place] Comment: Interpretive Data Percent cell count reference ranges are not reported, since discordance with absolute values may lead to misinterpretation of CBC data. Current Interpretive Data was last revised on 2017. Testing performed by: [address] [address] Imm gran pct 0.2 % [place] Comment: Interpretive Data Percent cell count reference ranges are not reported, since discordance with absolute values may lead to misinterpretation of CBC data. Current Interpretive Data was last revised on 2017. Testing performed by: [address] [address] Lymphocyte pct 17.2 % [place] Comment: Interpretive Data Percent cell count reference ranges are not reported, since discordance with absolute values may lead to misinterpretation of CBC data. Current Interpretive Data was last revised on 2017. Testing performed by: [address] [address] Monocyte pct 8.6 % [place] Comment: Interpretive Data Percent cell count reference ranges are not reported, since discordance with absolute values may lead to misinterpretation of CBC data. Current Interpretive Data was last revised on 2017. Testing performed by: [address] [address] Eosinophil pct 1.5 % [place] Comment: Interpretive Data Percent cell count reference ranges are not reported, since discordance with absolute values may lead to misinterpretation of CBC data. Current Interpretive Data was last revised on 2017. Testing performed by: [address] [address] Basophil pct 0.6 % [place] Comment: Interpretive Data Percent cell count reference ranges are not reported, since discordance with absolute values may lead to misinterpretation of CBC data. Current Interpretive Data was last revised on 2017. Testing performed by: [address] [address] Blood 08/07/2024 8:51 AM WARES SORTER 08/07/2024 8:56 AM WARES SORTER us Andriy Herndon MD PhD LAB BLOOD ORDERABLES Final Result [facility] [address] [facility] [place] [address] * (ABNORMAL) CBC with auto differential (08/07/2024 8:51 AM WARES SORTER) WBC 8.6 3.8 - 9.9 K/cumm Comment:Testing performed by : [address] [address] Hgb 13.2 11.9 - 15.5 g/dL [place] Comment:Testing performed by : [address] [address] Hct 39.6 35.6 - 45.5 % [place] Comment:Testing performed by : [address] [address] Plt 179 150 - 400 K/cumm [place] Comment:Testing performed by : [address] [address] MPV 12.2 9.1 - 12.3 fL [place] Comment:Testing performed by : [address] [address] RBC 4.20 3.90 - 5.20 M/cumm [place] Comment:Testing performed by : [address] [address] MCV 94.3 81.3 - 96.4 fL [place] Comment:Testing performed by : [address] [address] MCH 31.4 27.1 - 33.3 pg [place] Comment:Testing performed by : [address] [address] MCHC 33.3 32.3 - 35.7 g/dL [place] Comment:Testing performed by : [address] [address] RDW CV 14.3 11.1 - 14.9 % [place] Comment:Testing performed by : [address] [address] RDW SD 49.6(H) 35.7 - 48.1 fL [place] Comment:Testing performed by : [address] [address] NRBC abs 0.00 0.00 - 0.01 K/cumm [place] Comment:Testing performed by : [address] [address] Blood 08/07/2024 8:51 AM WARES SORTER 08/07/2024 8:56 AM WARES SORTER us Andriy Herndon MD PhD LAB BLOOD ORDERABLES Final Result [place] [address] [facility] [place] [address] * (ABNORMAL) Protime-INR (08/07/2024 8:51 AM WARES SORTER) PT 35.3(H) 12.0 - 14.6 sec Comment: Ref Range High Testing performed by: [address] [address] INR 3.6(H) 0.9 - 1.2 [place] Comment: Ref Range High Interpretive data Oral anticoagulant therapeutic ranges: Venous thromboembolism prophylaxis or treatment: 2.0-3.0 CARDIOLOGY Standard range: 2.0-3.0 High-intensity range: 2.5-3.5 Refer to indication-specific guidelines for appropriate target ranges for prosthetic heart valve replacement. Current interpretive data was last revised on 2019. Testing performed by: [address] [address] Blood 08/07/2024 8:51 AM WARES SORTER 08/07/2024 9:54 AM WARES SORTER us Kathy Donohue MD LAB BLOOD ORDERABL ES Final Result [facility] [address] [facility] [place] [address] * (ABNORMAL) Comprehensive metabolic panel (08/07/2024 8:51 AM WARES SORTER) Sodium 142 135 - 145 mmol/L Comment:Testing performed by : [address] [address] Potassium, pl 4.5 3.3 - 4.9 mmol/L [place] Comment:Testing performed by : [address] [address] Chloride 106 97 - 110 mmol/L [place] Comment:Testing performed by : [address] [address] CO2 26 22 - 32 mmol/L [place] Comment:Testing performed by : [address] [address] Anion gap 10 2 - 15 mmol/L [place] Comment:Testing performed by : [address] [address] BUN 13 6 - 25 mg/dL [place] Comment:Testing performed by : [address] [address] Creatinine 0.90 0.60 - 1.10 mg/dL [place] Comment:Testing performed by : [address] [address] Glucose 107 70 - 199 mg/dL [place] [...] classification and Diagnosis of Diabetes Diabetes Care 2021; 46: S19-S40. Current interpretive data was last revised 2022. Testing performed by: [address] [address] Calcium 9.3 8.5 - 10.3 mg/dL [facility] Comment:Testing performed by : [address] [address] Bilirubin, total 0.3 0.1 - 1.2 mg/dL [facility] Comment:Testing performed by : [address] [address] Protein, pl 7.2 6.5 - 8.5 g/dL [facility] Comment:Testing performed by : [address] [address] Albumin 3.7 3.5 - 5.0 g/dL [facility] Comment:Testing performed by : [address] [address] Alk phos 131(H) 40 - 130 Units/L [place] Comment:Testing performed by : [address] [address] ALT 13 7 - 45 Units/L [place] Comment:Testing performed by : [address] [address] AST 14 10 - 45 Units/L [place] Comment:Testing performed by : [facility], [address] [facility], [place]., [address] Blood 08/07/2024 8:51 AM WARES SORTER 08/07/2024 8:56 AM WARES SORTER us Andriy Herndon MD PhD LAB BLOOD ORDERABLES Final Result [place] [address] [facility] [place] [address] * Lipid panel (01/26/2024 10:02 AM CDT) Cholesterol 182 30 - 199 mg/dL Comment: [...] on 2018. Triglycerides 147 <=149 mg/dL [facility] Comment: Interpretive Data Ages [...] on 2018. HDL 40 >=40 mg/dL [facility] Comment: Interpretive Data Ages [...] 2018. LDL, calculated 113 <=129 mg/dL [facility] Comment: Interpretive Data Ages [...] revised on 2018. Chol/HDL ratio 5 [place] [place] Blood 01/26/2024 10:0 2 AM CDT 01/26/2024 10:31 AM CDT us Christopher Dubon MD LAB BLOOD ORDERABLES F inal Result [place] [address] [facility] [place] [address] * (ABNORMAL) Albumin Creatinine Ratio, Urine (01/02/2020 7:36 AM CDT) Creatinine, ur 45 20 - 275 mg/dL [facility] Microalbumin, ur 1.6 See Note: mg/dL [facility] [place] Comment: Reference Range: Reference Range Not established Microalbumin/creat ratio 36(H) <30 mcg/mg creat [facility] [place] Comment: The ADA defines abnormalities in albumin [...] Agency Comment Performing Organization Information: Site ID: [place] Name: [facility] Address: [address] [facility] [address] Director: Dexter Jenkins D.O., MPH us Abraham Parsons MD LAB URINE ORDERABLES Final Resul t [facility] [employer] [place], [place] * (ABNORMAL) Hemoglobin A1c (01/02/2020 7:36 AM CDT) Hgb A1C 7.0(H) <5.7 % of total Hgb [facility] Comment: For someone without known diabetes, a [...] copy faxed has been acknowledged. Queued to: [id number] Blood specimen (specimen) 01/02/2020 7:36 AM CDT 01/02/2020 7:38 AM CDT Narrative [facility] - 01/03/2020 1:57 PM CDT FASTING:YES FASTING: YES Resulting Agency Comment Performing Organization Information: Site ID: [id number] Name: [facility] Address: [address] [address] Director: Dexter Jenkins D.O., MPH us Abraham Parsons MD LAB BLOOD ORDERABLES Final Resul t [facility] from Last 3 Months or Most Recently Relevant to Health Maintenance Insurance MEDICARE [facility] MEDICARE [facility] MEDICARE [facility] Advance Directives For more information, please contact: [phone] Documents on File Type Date Recorded Patient Manager Staffing Expl anation ADVANCE DIRECTIVE 07/09/2024 1:04 PM Sonia r of [employer] ADVANCE DIRECTIVE 09/21/2021 12:53 PM Sonia r of [employer] * Full Code (Latest Code Status on [...] 3:09 AM 09/22/2021 5:34 PM Care Teams Campaign Developer Relationship Specialty Start Date End Date Hayden Miller DO [address] [place] [address] PCP - General Family Medicine 05/06/22 Eder Jaffe MD [address] [facility] [address] [address] [place] [address] Consulting Physician Pulmonary Disease 10/15/21 Fazal Baird MD [address] [place] [address] Consulting Physician Cardiothoracic Surgery 10/21/21 Christopher Dubon MD [address] [facility] [address] [address] Consulting Physician Cardiology 08/12/23 Wagner Villatoro MD [address] [place] [address] Radiation Oncologist Radiation Oncology 10/25/23 Eder Jaffe MD [address] [facility] [address] [place] [address] [place] [address] Surgeon Pulmonary Disease 01/10/24 Andriy Herndon MD PhD [address] [place] [address] Consulting Physician Medical Oncology 05/22/24 Clifton De MD [address] [place] [address] Consulting Physician Pain Management 05/25/24 Jacob Ko MD [address] [facility] [address] [place] [address] [address] Consulting Physician Cardiology 05/25/24
--- OUTSIDE RECORDS SUMMARY | 2024-10-24 09:42 | XMS_ITS | Encounter Summary ---
Author Organization [facility] Facility Care Team Providers Care Electricians Top Helper Name Role Phone Jessica Jerez Primary Care Provider + [phone] Yoanna Lim LPN Unavailable +[phone] Dexter Hines MD Primary Care Provider +[phone] Jessica Jerez Primary Care Provider + [phone] Dexter Hines MD Primary Care Provider +[phone] Kaitlin Patterson MD Unavailable +[phone] Dylon Cruz MD Unavailable +[phone] Dylon Curz MD Unavailable +[phone] Dexter Hines MD Primary Care Provider +[phone] Andriy Herndon MD PhD Unavailable +[phone] Eder Jaffe MD Unavailable +[phone] Wagner Villatoro MD Unavailable +[phone] Fazal Baird MD Unavailable +[phone] Fazal Cordero MD Primary Care Provider +[phone] Hayden Miller DO Primary Care Provider +[phone] Christopher Dubon MD Unavailable + [phone] Wagner Villatoro MD Unavailable +[phone] Eder Jaffe MD Unavailable [phone] Andriy Herndon MD PhD Unavailable Clifton De MD Unavailable Jacob Ko MD Unavailable +[phone] Encounter Details Date Type Department Care Team (Latest Contact Info) Description 02/22/2017 Orders Only MMG CLINCONV ProviderBairon MD [address] [place] [address] Social History Tobacco Use Types Packs/Day [...] Priority Date/Time Associated Diagnosis Comments CARDIOLOGY REPORT 02/24/2017 12: 00 AM CDT documented in this encounter Results * CARDIOLOGY REPORT (02/24/2017 12:00 AM CDT) Anatomical Region Laterality Modality Other Narrative 02/24/2017 12:00 AM CDT Ordered by an unspecified [...] documented as of this encounter Care Teams Electricians Top Helper Relationship Specialty Start Date End Date Jessica Jerez PA [address] [place] [address] PCP - General Critical Care Med 07/06/18 11/21/18 Dexter Hines MD [address] [place] [address] PCP - General 11/22/18 12/21/18 Jessica Jerez PA [address] [place] [address] PCP - General Critical Care Med 12/22/18 01/22/19 Dexter Hines MD [address] [place] [address] PCP - General Internal Medicine 01/23/19 07/04/19 Dexter Hines MD [address] [place] [address] PCP - General 07/28/19 04/22/22 Fazal Cordero MD [address] [facility] [place] [address] PCP - General Orthopedic Surgery 04/23/22 05/05/22 Hayden Miller DO [address] [facility] [place] [address] PCP - General Family Medicine 05/06/22 Yoanna Lim, PRESS LEADER [address] [place] [address] [address] [place] [address] Appliance Counselor 07/06/18 07/06/18 Kaitlin Patterson MD [address] [place] [address] Family Practitioner Interventional Cardiology 05/22/19 08/11/23 Dylon Cruz MD [address] [place] [address] Internal Combustion Engine Subassembler Medical Oncology 06/27/19 10/14/21 Dylon Cruz MD [address] [place] [address] Medical Oncologist/Hematologis t Medical Oncology 06/27/19 10/14/21 Andriy Herndon MD PhD [address] [place] [address] MEDICAL ONCOLOGY, [address] [address] Consulting Physician Medical Oncology 10/15/21 4 Eder Jaffe MD [address] [facility] [address] [place] [address] Consulting Physician Pulmonary Disease 10/15/21 Wagner Villatoro MD [facility] [address] [place] [address] Radiation Oncologist Radiation Oncology 10/21/21 Fazal Baird MD 9 [place] [address] Consulting Physician Cardiothoracic Surgery 10/21/21 Christopher Dubon MD [address] [facility] [address] [address] Consulting Physician Cardiology 08/12/23 Wagner Villatoro MD [address] [place] [address] Radiation Oncologist Radiation Oncology 10/25/23 Eder Jaffe MD [address] [facility] [address] [place] [address] Surgeon Pulmonary Disease 01/10/24 Andriy Herndon MD PhD [address] [place] [address] [id number] Consulting Physician Medical Oncology 05/22/24 Clifton De MD [address] [place] [address] [id number] Consulting Physician Pain Management 05/25/24 Jacob Ko MD [address] [facility] [address] [address] Consulting Physician Cardiology 05/25/24 documented as of this encounter
--- OUTSIDE RECORDS SUMMARY | 2024-10-24 09:42 | XMS_ITS | Encounter Summary ---
Author Organization [facility] Facility Care Team Providers Care Sales Ledger Administrator Name Role Phone Jessica Jerez Primary Care Provider + [phone] Yoanna Lim LPN Unavailable +[phone] Dexter Hines MD Primary Care Provider +[phone] Jessica Jerez Primary Care Provider + [phone] Dexter Hines MD Primary Care Provider +[phone] Kaitlin Patterson MD Unavailable +[phone] Dylon Cruz MD Unavailable +[phone] Dylon Cruz MD Unavailable [phone] Dexter Hines MD Primary Care Provider +[phone] Andriy Herndon MD PhD Unavailable +[phone] Eder Jaffe MD Unavailable [phone] Wagner Villatoro MD Unavailable [phone] Fazal Baird MD Unavailable [phone] Fazal Cordero MD Primary Care Provider Hayden Miller DO Primary Care Provider +[phone] Christopher Dubon MD Unavailable + [phone] Wagner Villatoro MD Unavailable Eder Jaffe MD Unavailable [phone] Andriy Herndon MD PhD Unavailable Clifton De MD Unavailable Jacob Ko MD Unavailable +[phone] Encounter Details Date Type Department Care Team (Latest Contact Info) Description 06/23/2015 Orders Only MMG CLINCONV ProviderBairon MD [address] [place] [address] Social History Tobacco Use Types Packs/Day [...] documented as of this encounter Care Teams Sales Ledger Administrator Relationship Specialty Start Date End Date Jessica Jerez PA [address] [place] [address] PCP - General Critical Care Med 07/06/18 11/21/18 Dexter Hines MD [address] [place] [address] PCP - General 11/22/18 12/21/18 Jessica Jerez PA [address] [place] [address] PCP - General Critical Care Med 12/22/18 01/22/19 Dexter Hines MD [address] [place] [address] PCP - General Internal Medicine 01/23/19 07/04/19 Dexter Hines MD [address] [place] [address] PCP - General 07/28/19 04/22/22 Fazal Cordero MD [address] [facility] [place] [address] PCP - General Orthopedic Surgery 04/23/22 05/05/22 Hayden Miller DO [address] [facility] [place] [address] PCP - General Family Medicine 05/06/22 Yoanna Lim, WHEEL AND PINION INSPECTOR [address] [place] [address] [address] [place] [address] Bilingual Elementary School Teacher 07/06/18 07/06/18 Kaitlin Patterson MD [address] [place] [address] Tax Compliance Agent Interventional Cardiology 05/22/19 08/11/23 Dylon Cruz MD [address] [place] [address] 4Th Grade Teacher Medical Oncology 06/27/19 10/14/21 Dylon Cruz MD [address] [place] [address] Medical Oncologist/Hematologis t Medical Oncology 06/27/19 10/14/21 Andriy Herndon MD PhD [address] [place] [address] MEDICAL ONCOLOGY, [address] [address] Consulting Physician Medical Oncology 10/15/21 4 Eder Jaffe MD [address] [facility] [address] [place] [address] Consulting Physician Pulmonary Disease 10/15/21 Wagner Villatoro MD [facility] [address] [place] [address] Radiation Oncologist Radiation Oncology 10/21/21 Fazal Baird MD 9 [place] [address] Consulting Physician Cardiothoracic Surgery 10/21/21 Christopher Dubon MD [address] [facility] [address] [address] Consulting Physician Cardiology 08/12/23 Wagner Villatoro MD [address] [place] [address] Radiation Oncologist Radiation Oncology 10/25/23 Eder Jaffe MD [address] [facility] [address] [place] [address] Surgeon Pulmonary Disease 01/10/24 Andriy Herndon MD PhD [address] [place] [address] [phone] Consulting Physician Medical Oncology 05/22/24 Clifton De MD [address] [place] [address] [id number] Consulting Physician Pain Management 05/25/24 Jacob Ko MD [address] [facility] [address] [address] Consulting Physician Cardiology 05/25/24 documented as of this encounter
--- OUTSIDE RECORDS SUMMARY | 2024-10-24 09:42 | XMS_ITS | Encounter Summary ---
Author Organization [facility] Facility Care Team Providers Care Certified Ophthalmic Assistant Name Role Phone Jessica Jerez Primary Care Provider + [phone] Yoanna Lim LPN Unavailable +[phone] Dexter Hines MD Primary Care Provider +[phone] Jessica Jerez Primary Care Provider + 48081 Dexter Hines MD Primary Care Provider +[phone] Kaitlin Patterson MD Unavailable +[phone] Dylon Cruz MD Unavailable [phone] Dylon Cruz MD Unavailable [phone] Dexter Hines MD Primary Care Provider +[phone] Andriy Herndon MD PhD Unavailable +[phone] Eder Jaffe MD Unavailable [phone] Wagner Villatoro MD Unavailable [phone] Fazal Baird MD Unavailable [phone] Fazal Cordero MD Primary Care Provider +[phone] Hayden Miller DO Primary Care Provider +[phone] Christopher Dubon MD Unavailable + [phone] Wagner Villatoro MD Unavailable [phone] Eder Jaffe MD Unavailable [phone] Andriy Herndon MD PhD Unavailable Clifton De MD Unavailable Jacob Ko MD Unavailable +[phone] Encounter Details Date Type Department Care Team (Latest Contact Info) Description 02/21/2017 Orders Only MMG CLINCONV ProviderBairon MD [address] [place] [address] Social History Tobacco Use Types Packs/Day [...] Priority Date/Time Associated Diagnosis Comments CARDIOLOGY REPORT 02/21/2017 12: 00 AM CDT CARDIOLOGY REPORT 02/21/2017 12: 00 AM CDT documented in this encounter Results * CARDIOLOGY REPORT (02/21/2017 12:00 AM CDT) Anatomical Region Laterality Modality Other Narrative 02/21/2017 12:00 AM CDT Ordered by an unspecified provider. Historical Provider CV CARDIAC SERVICES PROCE ISAIAS Final Result * CARDIOLOGY REPORT (02/21/2017 12:00 AM CDT) Anatomical Region Laterality Modality Other Narrative 02/21/2017 12:00 AM CDT Ordered by an unspecified provider. us Historical Provider CV CARDIAC SERVICES PROCE DURCONCHITA Final Result documented in this encounter Visit Diagnoses Not on filedocumented in this encounter Additional Health Concerns Infection Onset Date Last Indicated Resolved Time Ring Surveillance Comment:07/07/24 admitted to [facility] ring surveillance room. ML 07/12/24 negative C. Auris result. ML 07/07/2024 07/07/2024 07/12/2024 1:[address] documented as of this encounter Care Teams Certified Ophthalmic Assistant Relationship Specialty Start Date End Date Jessica Jerez PA [address] [place] [address] PCP - General Critical Care Med 07/06/18 11/21/18 Dexter Hines MD [address] [place] [address] PCP - General 11/22/18 12/21/18 Jessica Jerez PA [address] [place] [address] PCP - General Critical Care Med 12/22/18 01/22/19 Dexter Hines MD [address] [place] [address] PCP - General Internal Medicine 01/23/19 07/04/19 Dexter Hines MD [address] [place] [address] PCP - General 07/28/19 04/22/22 Fazal Cordero MD [address] [facility] [address] PCP - General Orthopedic Surgery 04/23/22 05/05/22 Hayden Miller DO [address] [facility] [address] PCP - General Family Medicine 05/06/22 Yoanna Lim, LAI [address] [place] [address] [address] [place] [address] Seo Intern 07/06/18 07/06/18 Kaitlin Patterson MD [address] [place] [address] Investigation Specialist Interventional Cardiology 05/22/19 08/11/23 Dylon Cruz MD [address] [place] [address] Order Checker Packer Processer Medical Oncology 06/27/19 10/14/21 Dylno Cruz MD [address] [place] [address] Medical Oncologist/Hematologis t Medical Oncology 06/27/19 10/14/21 Andriy Herndon MD PhD [address] [place] [address] MEDICAL ONCOLOGY, [address] [address] Consulting Physician Medical Oncology 10/15/21 4 Eder Jaffe MD [address] [facility] [address] [place] [address] Consulting Physician Pulmonary Disease 10/15/21 Wagner Villatoro MD [address] [facility] [address] [place] [address] Radiation Oncologist Radiation Oncology 10/21/21 Fazal Baird MD 9 [place] [address] Consulting Physician Cardiothoracic Surgery 10/21/21 Christopher Dubon MD [address] [facility] [address] [place] [address] Consulting Physician Cardiology 08/12/23 Wagner Villatoro MD [address] [place] [address] Radiation Oncologist Radiation Oncology 10/25/23 Eder Jaffe MD [address] [facility] [address] [place] [address] Surgeon Pulmonary Disease 01/10/24 Andriy Herndon MD PhD [address] [place] [address] Consulting Physician Medical Oncology 05/22/24 Clifton De MD [address] [place] [address] Consulting Physician Pain Management 05/25/24 Jacob Ko MD [address] [facility] [address] [address] Consulting Physician Cardiology 05/25/24 documented as of this encounter
--- OUTSIDE RECORDS SUMMARY | 2024-10-24 09:42 | XMS_ITS | Encounter Summary ---
Author Organization [facility] Facility Care Team Providers Care Director Of Food And Nutrition Name Role Phone Jessica Jerez Primary Care Provider + [phone] Yoanna Lim LPN Unavailable +[phone] Dexter Hines MD Primary Care Provider +[phone] Jessica Jerez Primary Care Provider + [address] Dexter Hines MD Primary Care Provider +[phone] Kaitlin Patterson MD Unavailable +[phone] Dylon Cruz MD Unavailable [phone] Dylon Cruz MD Unavailable [phone] Dexter Hines MD Primary Care Provider +[phone] Andriy Herndon MD PhD Unavailable +[phone] Eder Jaffe MD Unavailable [phone] Wagner Villatoro MD Unavailable [phone] Fazal Baird MD Unavailable [phone] Fazal Cordero MD Primary Care Provider Hayden Miller DO Primary Care Provider +[phone] Christopher Dubon MD Unavailable + [phone] Wagner Villatoro MD Unavailable [phone] Eder Jaffe MD Unavailable +[phone] Andriy Herndon MD PhD Unavailable Clifton De MD Unavailable Jacob Ko MD Unavailable +[phone] Encounter Details Date Type Department Care Team (Latest Contact Info) Description 10/08/2015 Orders Only MMG CLINCONV ProviderBairon MD [address] [place] [address] Social History Tobacco Use Types Packs/Day [...] CARDIOLOGY REPORT 03/12/2016 12: 00 AM CDT CARDIOLOGY REPORT 03/12/2016 12: 00 AM CDT documented in this encounter Results * CARDIOLOGY REPORT (03/12/2016 12:00 AM CDT) Anatomical Region Laterality Modality Other Narrative 03/12/2016 12:00 AM CDT Ordered by an unspecified provider. Historical Provider CV CARDIAC SERVICES PROCE ISAIAS Final Result * CARDIOLOGY REPORT (03/12/2016 12:00 AM CDT) Anatomical Region Laterality Modality Other Narrative 03/12/2016 12:00 AM CDT Ordered by an unspecified provider. us Historical Provider CV CARDIAC SERVICES PROCE ISAIAS Final Result documented in this encounter Visit Diagnoses Not on filedocumented in this encounter Additional Health Concerns Infection Onset Date Last Indicated Resolved Time Ring Surveillance Comment:07/07/24 admitted to [facility]. [facility] ring surveillance room. ML 07/12/24 negative C. Auris result. ML 07/07/2024 07/07/2024 07/12/2024 1:[address] documented as of this encounter Care Teams Director Of Food And Nutrition Relationship Specialty Start Date End Date Jessica Jerez PA [address] [place] [address] PCP - General Critical Care Med 07/06/18 11/21/18 Dexter Hines MD [address] [place] [address] PCP - General 11/22/18 12/21/18 Jessica Jerez PA [address] [place] [address] PCP - General Critical Care Med 12/22/18 01/22/19 Dexter Hines MD [address] [place] [address] PCP - General Internal Medicine 01/23/19 07/04/19 Dexter Hines MD [address] [place] [address] PCP - General 07/28/19 04/22/22 Fazal Cordero MD [address] [facility] [place] [address] PCP - General Orthopedic Surgery 04/23/22 05/05/22 Hayden Miller DO [address] [facility] [place] [address] PCP - General Family Medicine 05/06/22 Yoanna Lim, LAI [address] [place] [address] [address] [place] [address] Private Pilot 07/06/18 07/06/18 Kaitlin Patterson MD [address] [place] [address] Judo Teacher Interventional Cardiology 05/22/19 08/11/23 Dylon Cruz MD [address] [place] [address] Beater Head Medical Oncology 06/27/19 10/14/21 Dylon Cruz MD [address] [place] [address] Medical Oncologist/Hematologis t Medical Oncology 06/27/19 10/14/21 Andriy Herndon MD PhD [address] [place] [address] MEDICAL ONCOLOGY, [address] [address] Consulting Physician Medical Oncology 10/15/21 4 Eder Jaffe MD [address] [facility] [address] [place] [address] Consulting Physician Pulmonary Disease 10/15/21 Wagner Villatoro MD [address] [facility] [address] [place] [address] Radiation Oncologist Radiation Oncology 10/21/21 Fazal Baird MD 9 [place] [address] Consulting Physician Cardiothoracic Surgery 10/21/21 Christopher Dubon MD [address] [facility] [address] [place] [address] Consulting Physician Cardiology 08/12/23 Wagner Villatoro MD [address] [place] [address] Radiation Oncologist Radiation Oncology 10/25/23 Eder Jaffe MD [address] [facility] [address] [place] [address] Surgeon Pulmonary Disease 01/10/24 Andriy Herndon MD PhD [address] [place] [address] Consulting Physician Medical Oncology 05/22/24 Clifton De MD [address] [place] [address] Consulting Physician Pain Management 05/25/24 Jacob Ko MD [address] [facility] [address] [address] Consulting Physician Cardiology 05/25/24 documented as of this encounter
--- OUTSIDE RECORDS SUMMARY | 2024-10-24 09:42 | XMS_ITS | Encounter Summary ---
Author Organization [facility] Facility Care Team Providers Care Excavating Supervisor Name Role Phone Jessica Jerez Primary Care Provider + [phone] Yoanna Lim LPN Unavailable +[phone] Dexter Hines MD Primary Care Provider +[phone] Jessica Jerez Primary Care Provider + 413[address] Dexter Hines MD Primary Care Provider +[phone] Kaitlin Patterson MD Unavailable [phone] Dylon Cruz MD Unavailable [phone] Dylon Cruz MD Unavailable [phone] Dexter Hines MD Primary Care Provider +[phone] Andriy Herndon MD PhD Unavailable +[phone] Eder Jaffe MD Unavailable [phone] Wagner Villatoro MD Unavailable [phone] Fazal Baird MD Unavailable [phone] Fazal Cordero MD Primary Care Provider Hayden Miller DO Primary Care Provider +[phone] Christopher Dubon MD Unavailable + [phone] Wagner Villatoro MD Unavailable Eder Jaffe MD Unavailable Andriy Herndon MD PhD Unavailable Clifton De MD Unavailable Jacob Ko MD Unavailable Encounter Details Date Type Department Care Team (Latest Contact Info) Description 08/26/2016 Orders Only MMG CLINCONV ProviderBairon MD [address] [place] [address] Social History Tobacco Use Types Packs/Day [...] Priority Date/Time Associated Diagnosis Comments CARDIOLOGY REPORT 08/26/2016 12: 00 AM [employer]ER POWERHOUSE documented in this encounter Results * CARDIOLOGY REPORT (08/26/2016 12:00 AM [employer] P[employer]HOUSE) Anatomical Region Laterality Modality Other Narrative 08/26/2016 12:00 AM [employer] POWERHOUSE Ordered by an unspecified provider. Historical Provider [...] documented as of this encounter Care Teams Excavating Supervisor Relationship Specialty Start Date End Date Jessica Jerez PA [address] [place] [address] PCP - General Critical Care Med 07/06/18 11/21/18 Dexter Hines MD [address] [place] [address] PCP - General 11/22/18 12/21/18 Jessica Jerez PA [address] [place] [address] PCP - General Critical Care Med 12/22/18 01/22/19 Dexter Hines MD [address] [place] [address] PCP - General Internal Medicine 01/23/19 07/04/19 Dexter Hines MD [address] [place] [address] PCP - General 07/28/19 04/22/22 Fazal Cordero MD [address] [facility] [place] [address] PCP - General Orthopedic Surgery 04/23/22 05/05/22 Hayden Miller DO [address] [facility] [place] [address] PCP - General Family Medicine 05/06/22 Yoanna Lim, TACK WELDER [address] [facility] [address] [place] [address] Training And Development Professional 07/06/18 07/06/18 Kaitlin Patterson MD [address] [place] [address] Forestry Professor Interventional Cardiology 05/22/19 08/11/23 Dylon Cruz MD [address] [place] [address] Social Media Intern Medical Oncology 06/27/19 10/14/21 Dylon Cruz MD [address] [place] [address] Medical Oncologist/Hematologis t Medical Oncology 06/27/19 10/14/21 Andriy Herndon MD PhD [address] [place] [address] MEDICAL ONCOLOGY, [address] [address] Consulting Physician Medical Oncology 10/15/21 4 Eder Jaffe MD [address] [facility] [address] [place] [address] Consulting Physician Pulmonary Disease 10/15/21 Wagner Villatoro MD [facility] [address] [place] [address] Radiation Oncologist Radiation Oncology 10/21/21 Fazal Baird MD [address] [place] [address] Consulting Physician Cardiothoracic Surgery 10/21/21 Christopher Dubon MD [address] [facility] [address] [address] Consulting Physician Cardiology 08/12/23 Wagner Villatoro MD [address] [place] [address] Radiation Oncologist Radiation Oncology 10/25/23 Eder Jaffe MD [address] [facility] [address] [place] [address] Surgeon Pulmonary Disease 01/10/24 Andriy Herndon MD PhD [address] [place] [address] Consulting Physician Medical Oncology 05/22/24 Clifton De MD [address] [place] [address] Consulting Physician Pain Management 05/25/24 Jacob Ko MD [address] [facility] [address] [address] Consulting Physician Cardiology 05/25/24 documented as of this encounter
--- OUTSIDE RECORDS SUMMARY | 2024-10-24 09:42 | XMS_ITS | Encounter Summary ---
Author Organization [facility] Facility Care Team Providers Care Pharmacy Benefits Coordinator Name Role Phone Jessica Jerez Primary Care Provider + [phone] Yoanna Lim LPN Unavailable +[phone] Dexter Hinse MD Primary Care Provider +[phone] Jessica Jerez Primary Care Provider + [phone] Dexter Hines MD Primary Care Provider +[phone] Kaitlin Patterson MD Unavailable +[phone] Dylon Cruz MD Unavailable [phone] Dylon Cruz MD Unavailable +[phone] Dexter Hines MD Primary Care Provider +[phone] Andriy Herndon MD PhD Unavailable +[phone] Eder Jaffe MD Unavailable [phone] Wagner Villatoro MD Unavailable +[phone] Fazal Baird MD Unavailable +[phone] Fazal Cordero MD Primary Care Provider Hayden Miller DO Primary Care Provider +[phone] Christopher Dubon MD Unavailable + [phone] Wagner Villatoro MD Unavailable [phone] Eder Jaffe MD Unavailable +[phone] Andriy Herndon MD PhD Unavailable Clifton De MD Unavailable Jacob Ko MD Unavailable +[phone] Encounter Details Date Type Department Care Team (Latest Contact Info) Description 09/03/2015 Orders Only [facility] CLINCONV ProviderBairon MD [address] [place] [address] Social History Tobacco Use Types Packs/Day [...] documented as of this encounter Care Teams Pharmacy Benefits Coordinator Relationship Specialty Start Date End Date Jessica Jerez PA [address] [place] [address] PCP - General Critical Care Med 07/06/18 11/21/18 Dexter Hines MD [address] [place] [address] PCP - General 11/22/18 12/21/18 Jessica Jerez PA [address] [place] [address] PCP - General Critical Care Med 12/22/18 01/22/19 Dexter Hines MD [address] [place] [address] PCP - General Internal Medicine 01/23/19 07/04/19 Dexter Hines MD [address] [place] [address] PCP - General 07/28/19 04/22/22 Fazal Cordero MD [address] [facility] [place] [address] PCP - General Orthopedic Surgery 04/23/22 05/05/22 Hayden Miller DO [address] [facility] [place] [address] PCP - General Family Medicine 05/06/22 Yoanna Lim, LAI [address] [place] [address] [address] [place] [address] Strawhat Sizer 07/06/18 07/06/18 Kaitlin Patterson MD [address] [place] [address] Camera Tuning Engineer Interventional Cardiology 05/22/19 08/11/23 Dylon Cruz MD [address] [place] [address] Literacy Education Professor Medical Oncology 06/27/19 10/14/21 Dylon Cruz MD [address] [place] [address] Medical Oncologist/Hematologis t Medical Oncology 06/27/19 10/14/21 Andriy Herndon MD PhD [address] [place] [address] MEDICAL ONCOLOGY, [address] [address] Consulting Physician Medical Oncology 10/15/21 4 Eder Jaffe MD [address] [facility] [address] [place] [address] Consulting Physician Pulmonary Disease 10/15/21 Wagner Villatoro MD [address] [facility] [address] [place] [address] Radiation Oncologist Radiation Oncology 10/21/21 Fazal Baird MD 9 [place] [address] Consulting Physician Cardiothoracic Surgery 10/21/21 Christopher Dubon MD [address] [facility] [address] [place] [address] Consulting Physician Cardiology 08/12/23 Wagner Villatoro MD [address] [place] [address] Radiation Oncologist Radiation Oncology 10/25/23 Eder Jaffe MD [address] [facility] [address] [place] [address] Surgeon Pulmonary Disease 01/10/24 Andriy Herndon MD PhD [address] [place] [address] Consulting Physician Medical Oncology 05/22/24 Clifton De MD [address] [place] [address] Consulting Physician Pain Management 05/25/24 Jacob Ko MD [address] [facility] [address] M[address] [address] Consulting Physician Cardiology 05/25/24 documented as of this encounter
--- OUTSIDE RECORDS SUMMARY | 2024-10-24 09:42 | XMS_ITS | Encounter Summary ---
Author Organization [facility] Facility Care Team Providers Care Lime Puller Name Role Phone Jessica Jerez Primary Care Provider + [phone] Yoanna Lim LPN Unavailable +[phone] Dexter Hines MD Primary Care Provider +[phone] Jessica Jerez Primary Care Provider + [phone] Dexter Hines MD Primary Care Provider +[phone] Kaitlin Patterson MD Unavailable [phone] Dylon Cruz MD Unavailable [phone] Dylon Cruz MD Unavailable [phone] Dexter Hines MD Primary Care Provider +[phone] Andriy Herndon MD PhD Unavailable +[phone] Eder Jaffe MD Unavailable [phone] Wagner Villatoro MD Unavailable [phone] Fzaal Baird MD Unavailable +[phone] Fazal Cordero MD Primary Care Provider Hayden Miller DO Primary Care Provider +[phone] Christopher Dubon MD Unavailable + [phone] Wagner Villatoro MD Unavailable [phone] Eder Jaffe MD Unavailable Andriy Herndon MD PhD Unavailable [phone] Clifton De MD Unavailable Jacob Ko MD Unavailable Encounter Details Date Type Department Care Team (Latest Contact Info) Description 12/09/2015 Orders Only [facility]G CLINCONV ProviderBairon MD [address] [place] [address] Social History Tobacco Use Types Packs/Day [...] Date/Time Associated Diagnosis Comments SCAN - LABS 12/09/2015 12:00 AM CDT documented in this encounter Results * SCAN - LABS (12/09/2015 12:00 AM CDT) Narrative 12/09/2015 12:00 AM CDT Ordered by an unspecified [...] documented as of this encounter Care Teams Lime Puller Relationship Specialty Start Date End Date Jessica Jerez PA [address] [place] [address] PCP - General Critical Care Med 07/06/18 11/21/18 Dexter Hines MD [address] [place] [address] PCP - General 11/22/18 12/21/18 Jessica Jerez PA [address] [place] [address] PCP - General Critical Care Med 12/22/18 01/22/19 Dexter Hines MD [address] [place] [address] PCP - General Internal Medicine 01/23/19 07/04/19 Dexter Hines MD [address] [place] [address] PCP - General 07/28/19 04/22/22 Fazal Cordero MD [address] [facility] [place] [address] PCP - General Orthopedic Surgery 04/23/22 05/05/22 Hayden Miller DO [address] [facility] [place] [address] PCP - General Family Medicine 05/06/22 Yoanna Lim, PHYSICIAN INTERVENTIONAL CARDIOLOGIST [address] [place] [address] Dr [address] [place] [address] Electrical Products Engineer 07/06/18 07/06/18 Kaitlin Patterson MD [address] [place] [address] Pleasure Craft Sailor Interventional Cardiology 05/22/19 08/11/23 Dylon Cruz MD [address] [place] [address] Feed Inspection Supervisor Medical Oncology 06/27/19 10/14/21 Dylon Cruz MD [address] [place] [address] Medical Oncologist/Hematologis t Medical Oncology 06/27/19 10/14/21 Andriy Herndon MD PhD [address] [place] [address] MEDICAL ONCOLOGY, [address] [address] Consulting Physician Medical Oncology 10/15/21 4 Eder Jaffe MD [address] [facility] [address] [address] Consulting Physician Pulmonary Disease 10/15/21 Wagner Villatoro MD [address] [facility] [address] [address] Radiation Oncologist Radiation Oncology 10/21/21 Fazal Baird MD 9 [place] [address] Consulting Physician Cardiothoracic Surgery 10/21/21 Christopher Dubon MD [address] [facility] [address] [address] Consulting Physician Cardiology 08/12/23 Wagner Villatoro MD [address] [place] [address] Radiation Oncologist Radiation Oncology 10/25/23 Eder Jaffe MD [address] [facility] [address] [place] [address] Surgeon Pulmonary Disease 01/10/24 Andriy Herndon MD PhD [address] [place] [address] Consulting Physician Medical Oncology 05/22/24 Clifton De MD [address] [place] [address] Consulting Physician Pain Management 05/25/24 Jacob Ko MD [address] [facility] [address] [address] Consulting Physician Cardiology 05/25/24 documented as of this encounter
--- OUTSIDE RECORDS SUMMARY | 2024-10-24 09:43 | XMS_ITS | Encounter Summary ---
Author Organization [facility] Address [address] [place] [address] Care Team Providers Care Capsule Filling Machine Operator Name Role Phone Kaitlin Patterson MD Unavailable Dexter Hines MD Primary Care Provider [phone] Andriy Herndon MD PhD Unavailable [phone] Eder Jaffe MD Unavailable [phone] Wagner Villatoro MD Unavailable [phone] Fazal Baird MD Unavailable [phone] Fazal Cordreo MD Primary Care Provider Hayden Miller DO Primary Care Provider [phone] Christopher Dubon MD Unavailable + [phone] Wagner Villatoro MD Unavailable [phone] Eder Jaffe MD Unavailable [phone] Andriy Herndon MD PhD Unavailable [phone] Clifton De MD Unavailable Jacob Ko MD Unavailable [phone] Encounter Details Date Type Department Care Team (Late st Contact Info) Description 12/29/2021 Telephone [facility] Radiology 1 [facility] [place] [address] Sandra Keller MD [address] [place] [address] Social History Tobacco Use Types Packs/Day Years Used Date Smoking Tobacco: Some Days Cigarettes 0.3 15 Smokeless Tobacco: Never Alcohol Use Standard Drinks/Week Comments Not Currently 0 (1 standard drink = 0.6 oz pur e alcohol) AUDIT-C Answer Date Recorded Q1: How often do you have a drink containing alc ohol? Never 12/14/2021 Average Number of Drinks Not on file 022 Frequency of Binge Drinking Not on file 11/27 PHQ-2 Answer Date Recorded PHQ-2 Total Score (If total score is 3 or more points, staff should administer the PHQ-9) 0 01/01/2020 Comments No Sex and Gender Information Value Date Recorded Sex Assigned at Not on file Legal Sex Female 8:24 AM CDT Gender Identity Not on file Sexual Orientation Straight 04/11/2020 3: 04 PM CDT documented as of this encounter Plan of Treatment Not on file documented as of this encounter Visit Diagnoses Not on filedocumented in this encounter Additional Health Concerns Infection Onset Date Last Indicated Resolved Time Ring Surveillance Comment:07/07/24 admitted to [facility] ring surveillance room. ML 07/12/24 negative [facility] result. ML 07/07/2024 07/07/2024 07/12/2024 1:[address] documented as of this encounter Care Teams Capsule Filling Machine Operator Relationship Specialty Start Date End Date Dexter Hines MD [address] [place] [address] PCP - General 07/28/19 04/22/22 Fazal Cordero MD [address] [facility] [place] [address] PCP - General Orthopedic Surgery 04/23/22 05/05/22 Hayden Miller DO [address] [facility] [place] [address] PCP - General Family Medicine 05/06/22 Kaitlin Patterson MD Oven Attendant Interventional Cardiology 05/22/19 Andriy Herndon MD PhD [address] [place] [address] [address] Consulting Physician Medical Oncology 10/15/21 4 Eder Jaffe MD [address] [facility] [address] [place] [id number] Consulting Physician Pulmonary Disease 10/15/21 Wagner Villatoro MD [address] [facility] [address] [place] [id number] Radiation Oncologist Radiation Oncology 10/21/21 Fazal Baird MD 9 [place] [address] Consulting Physician Cardiothoracic Surgery 10/21/21 Christopher Dubon MD [address] [facility] [address] [address] Consulting Physician Cardiology 08/12/23 Wagner Villatoro MD [address] [place] [address] Radiation Oncologist Radiation Oncology 10/25/23 Eder Jaffe MD [address] [facility] [address] [place] [address] Surgeon Pulmonary Disease 01/10/24 Andriy Herndon MD PhD [address] [place] [address] Consulting Physician Medical Oncology 05/22/24 Clifton De MD [address] [place] [address] Consulting Physician Pain Management 05/25/24 Jacob Ko MD [address] [facility] [address] [address] Consulting Physician Cardiology 05/25/24 documented as of this encounter
--- OUTSIDE RECORDS SUMMARY | 2024-10-24 09:43 | XMS_ITS | Encounter Summary ---
Author Organization [facility] Facility Care Team Providers Care Orthotic Fitter Name Role Phone Jessica Jerez Primary Care Provider + [phone] Yoanna Lim LPN Unavailable +[phone] Dexter Hines MD Primary Care Provider +[phone] Jessica Jerez Primary Care Provider + [phone] Dexter Hines MD Primary Care Provider +[phone] Kaitlin Patterson MD Unavailable [phone] Dylon Cruz MD Unavailable [phone] Dylon Cruz MD Unavailable [phone] Dexter Hines MD Primary Care Provider +[phone] Andriy Herndon MD PhD Unavailable +[phone] Eder Jaffe MD Unavailable [phone] Wagner Villatoro MD Unavailable [phone] Fazal Baird MD Unavailable [phone] Fazal Cordero MD Primary Care Provider Hayden Miller DO Primary Care Provider +[phone] Christopher Dubon MD Unavailable + [phone] Wagner Villatoro MD Unavailable [phone] Eder Jaffe MD Unavailable Andriy Herndon MD PhD Unavailable Clifton De MD Unavailable Jacob Ko MD Unavailable [phone] Encounter Details Date Type Department Care Team (Latest Contact Info) Description 05/05/2016 Orders Only [facility]G CLINCONV ProviderBairon MD [address] [place] [address] Social History Tobacco Use Types Packs/Day [...] Priority Date/Time Associated Diagnosis Comments CARDIOLOGY REPORT 05/18/2016 12: 00 AM CDT documented in this encounter Results * CARDIOLOGY REPORT (05/18/2016 12:00 AM CDT) Anatomical Region Laterality Modality Other Narrative 05/18/2016 12:00 AM CDT Ordered by an unspecified [...] documented as of this encounter Care Teams Orthotic Fitter Relationship Specialty Start Date End Date Jessica Jerez PA [address] [place] [address] PCP - General Critical Care Med 07/06/18 11/21/18 Dexter Hines MD [address] [place] [address] PCP - General 11/22/18 12/21/18 Jessica Jerez PA [address] [place] [address] PCP - General Critical Care Med 12/22/18 01/22/19 Dexter Hines MD [address] [place] [address] PCP - General Internal Medicine 01/23/19 07/04/19 Dexter Hines MD [address] [place] [address] PCP - General 07/28/19 04/22/22 Fazal Cordero MD [address] [facility] [place] [address] PCP - General Orthopedic Surgery 04/23/22 05/05/22 Hayden Miller DO [address] [facility] [place] [address] PCP - General Family Medicine 05/06/22 Yoanna Lim, TYRE RETREADER [address] [place] [address] [address] [place] [address] Plastic Roller 07/06/18 07/06/18 Kaitlin Patterson MD [address] [place] [address] Rugby League Footballer Interventional Cardiology 05/22/19 08/11/23 Dylon Cruz MD [address] [place] [address] Twister In Medical Oncology 06/27/19 10/14/21 Dylon Cruz MD [address] [place] [address] Medical Oncologist/Hematologis t Medical Oncology 06/27/19 10/14/21 Andriy Herndon MD PhD [address] [place] [address] MEDICAL ONCOLOGY, [address] [address] Consulting Physician Medical Oncology 10/15/21 4 Eder Jaffe MD [address] [facility] [address] [place] [address] Consulting Physician Pulmonary Disease 10/15/[address] [facility]0 [facility] [address] [place] [address] Radiation Oncologist Radiation Oncology 10/21/21 Fazal Baird MD 9 [place] [address] Consulting Physician Cardiothoracic Surgery 10/21/21 Christopher Dubon MD [address] [facility] [address] [address] Consulting Physician Cardiology 08/12/23 Wagner Villatoro MD [address] [place] [address] Radiation Oncologist Radiation Oncology 10/25/23 Eder Jaffe MD [address] [facility] [address] [place] [address] Surgeon Pulmonary Disease 01/10/24 Andriy Herndon MD PhD [address] [place] [id number] Consulting Physician Medical Oncology 05/22/24 Clifton De MD [address] [place] [id number] Consulting Physician Pain Management 05/25/24 Jacob Ko MD [address] [facility] [address] [address] Consulting Physician Cardiology 05/25/24 documented as of this encounter
--- OUTSIDE RECORDS SUMMARY | 2024-10-24 09:43 | XMS_ITS | Encounter Summary ---
Author Organization [facility] Facility Care Team Providers Care Fixing Machine Operator Name Role Phone Jessica Jerez Primary Care Provider + [phone] Yoanna Lim LPN Unavailable +[phone] Dexter Hines MD Primary Care Provider +[phone] Jessica Jerze Primary Care Provider + 475[address] Dexter Hines MD Primary Care Provider +[phone] Kaitlin Patterson MD Unavailable [phone] Dylon Cruz MD Unavailable [phone] Dylon Cruz MD Unavailable [phone] Dexter Hines MD Primary Care Provider +[phone] Andriy Herndon MD PhD Unavailable [phone] Eder Jaffe MD Unavailable [phone] Wagner Villatoro MD Unavailable [phone] Fazal Baird MD Unavailable [phone] Fazal Cordero MD Primary Care Provider Hayden Miller DO Primary Care Provider +[phone] Christopher Dubon MD Unavailable + [phone] Wagner Villatoro MD Unavailable Eder Jaffe MD Unavailable +[phone] Andriy Herndon MD PhD Unavailable Clifton De MD Unavailable Jacob Ko MD Unavailable +[phone] Encounter Details Date Type Department Care Team (Latest Contact Info) Description 02/25/2016 Orders Only MMG CLINCONV ProviderBairon MD [address] [place] [address] Social History Tobacco Use Types Packs/Day [...] Priority Date/Time Associated Diagnosis Comments CARDIOLOGY REPORT 03/13/2016 12: 00 AM CDT SCAN - LABS 02/25/2016 12:00 AM CDT documented in this encounter Results * CARDIOLOGY REPORT (03/13/2016 12:00 AM CDT) Anatomical Region Laterality Modality Other Narrative 03/13/2016 12:00 AM CDT Ordered by an unspecified provider. Historical Provider [facility] HANNA ESPARZA Final Result * SCAN - LABS (02/25/2016 12:00 AM CDT) Narrative 02/25/2016 12:00 AM CDT Ordered by an unspecified provider. us Historical Provider Final Res ult documented in this encounter Visit Diagnoses Not on filedocumented in this encounter Additional Health Concerns Infection Onset Date Last Indicated Resolved Time Ring Surveillance Comment:07/07/24 admitted to [facility] ring surveillance room. ML 07/12/24 negative C. [facility] result. ML 07/07/2024 07/07/2024 07/12/2024 1:[address] documented as of this encounter Care Teams Fixing Machine Operator Relationship Specialty Start Date End Date Jessica Jerez PA [address] [place] [address] PCP - General Critical Care Med 07/06/18 11/21/18 Dexter Hines MD [address] [place] [address] PCP - General 11/22/18 12/21/18 Jessica Jerez PA [address] [place] [address] PCP - General Critical Care Med 12/22/18 01/22/19 Dexter Hines MD [address] [place] [address] PCP - General Internal Medicine 01/23/19 07/04/19 Dexter Hines MD [address] [place] [address] PCP - General 07/28/19 04/22/22 Fazal Cordero MD [address] [facility] [place] [address] PCP - General Orthopedic Surgery 04/23/22 05/05/22 Hayden Miller DO [address] [facility] [address] PCP - General Family Medicine 05/06/22 Yoanna Lim, LAI [address] [facility] [address] [place] [address] Dry Charge Process Attendant 07/06/18 07/06/18 Kaitlin Patterson MD [address] [place] [address] Engineering Professionals Interventional Cardiology 05/22/19 08/11/23 Dylon Cruz MD [address] [place] [address] Branch General Manager Medical Oncology 06/27/19 10/14/21 Dylon Cruz MD [address] [place] [address] Medical Oncologist/Hematologis t Medical Oncology 06/27/19 10/14/21 Andriy Herndon MD PhD [address] [place] [address] MEDICAL ONCOLOGY, [address] [address] Consulting Physician Medical Oncology 10/15/21 4 Eder Jaffe MD [address] [facility] [address] [place] [address] Consulting Physician Pulmonary Disease 10/15/21 Wagner Villatoro MD [address] [facility] [address] [place] [address] Radiation Oncologist Radiation Oncology 10/21/21 Fazal Baird MD 9 [place] [address] Consulting Physician Cardiothoracic Surgery 10/21/21 Christopher Dubon MD [address] [facility] [address] [address] Consulting Physician Cardiology 08/12/23 Wagner Villatoro MD [address] [place] [address] Radiation Oncologist Radiation Oncology 10/25/23 Eder Jaffe MD [facility] [address] [place] [address] Surgeon Pulmonary Disease 01/10/24 Andriy Herndon MD PhD [address] [place] [address] Consulting Physician Medical Oncology 05/22/24 Clifton De MD [address] [place] [address] Consulting Physician Pain Management 05/25/24 Jacob Ko MD [address] [facility] [address] [address] Consulting Physician Cardiology 05/25/24 documented as of this encounter
--- OUTSIDE RECORDS SUMMARY | 2024-10-24 09:43 | XMS_ITS | Encounter Summary ---
Author Organization [facility] Facility Care Team Providers Care Train Controller Name Role Phone Jessica Jerez Primary Care Provider + [phone] Yoanna Lim LPN Unavailable +[phone] Dexter Hines MD Primary Care Provider +[phone] Jessica Jerez Primary Care Provider + [phone] Dexter Hines MD Primary Care Provider +[phone] Kaitlin Patterson MD Unavailable [phone] Dylon Cruz MD Unavailable [phone] Dylon Cruz MD Unavailable [phone] Dexter Hines MD Primary Care Provider +[phone] Andriy Herndon MD PhD Unavailable [phone] Eder Jaffe MD Unavailable [phone] Wagner Villatoro MD Unavailable +[phone] Fazal Baird MD Unavailable Fazal Cordero MD Primary Care Provider Hayden Miller DO Primary Care Provider +[phone] Christopher Dubon MD Unavailable + [phone] Wagner Villatoro MD Unavailable [phone] Eder Jaffe MD Unavailable Andriy Herndon MD PhD Unavailable Clifton De MD Unavailable Jacob Ko MD Unavailable [phone] Encounter Details Date Type Department Care Team (Latest Contact Info) Description 10/07/2016 Orders Only [facility] CLINCONV ProviderBairon MD [address] [place] [address] Social History Tobacco Use Types Packs/Day [...] Priority Date/Time Associated Diagnosis Comments CARDIOLOGY REPORT 10/01/2016 12: 00 AM OLEOMARGARINE MAKER documented in this encounter Results * CARDIOLOGY REPORT (10/01/2016 12:00 AM OLEOMARGARINE MAKER) Anatomical Region Laterality Modality Other Narrative 10/01/2016 12:00 AM OLEOMARGARINE MAKER Ordered by an unspecified provider. Historical Provider [...] documented as of this encounter Care Teams Train Controller Relationship Specialty Start Date End Date Jessica Jerez PA [address] [place] [address] PCP - General Critical Care Med 07/06/18 11/21/18 Dexter Hines MD [address] [place] [address] PCP - General 11/22/18 12/21/18 Jessica Jerez PA [address] [place] [address] PCP - General Critical Care Med 12/22/18 01/22/19 Dexter Hines MD [address] [place] [address] PCP - General Internal Medicine 01/23/19 07/04/19 Dexter Hines MD [address] [place] [address] PCP - General 07/28/19 04/22/22 Fazal Cordero MD [address] [place] [address] PCP - General Orthopedic Surgery 04/23/22 05/05/22 Hayden Miller DO [address] [place] [address] PCP - General Family Medicine 05/06/22 Yoanna Lim, SUPPLY CHAIN PROJECT MANAGER [address] [facility] [address] [place] [address] Branch General Manager 07/06/18 07/06/18 Kaitlin Patterson MD [address] [place] [address] Pie Cutter Interventional Cardiology 05/22/19 08/11/23 Dylon Cruz MD [address] [place] [address] Business Insight And Analytics Manager Medical Oncology 06/27/19 10/14/21 Dylon Cruz MD [address] [place] [address] Medical Oncologist/Hematologis t Medical Oncology 06/27/19 10/14/21 Andriy Herndon MD PhD [address] [place] [address] MEDICAL ONCOLOGY, [address] [address] Consulting Physician Medical Oncology 10/15/21 4 Eder Jaffe MD [address] [facility] [address] MART[address] [place] [address] Consulting Physician Pulmonary Disease 10/15/21 Wagner Villatoro MD [facility] [address] M[address] [place] [address] Radiation Oncologist Radiation Oncology 10/21/21 Fazal Baird MD [address] [place] [address] Consulting Physician Cardiothoracic Surgery 10/21/21 Christopher Dubon MD [address] [facility] [address] [address] Consulting Physician Cardiology 08/12/23 Wagner Villatoro MD [address] [place] [address] Radiation Oncologist Radiation Oncology 10/25/23 Eder Jaffe MD [address] [facility] [address] M[address] [place] [address] Surgeon Pulmonary Disease 01/10/24 Andriy Herndon MD PhD [address] [place] [address] Consulting Physician Medical Oncology 05/22/24 Clifton De MD [address] [place] [address] [id number] Consulting Physician Pain Management 05/25/24 Jacob Ko MD [address] [facility] [address] [address] Consulting Physician Cardiology 05/25/24 documented as of this encounter
--- OUTSIDE RECORDS SUMMARY | 2024-10-24 09:43 | XMS_ITS | Encounter Summary ---
Author Organization [facility] Facility Care Team Providers Care Light Oil Operator Name Role Phone Jessica Jerez Primary Care Provider + [phone] Yoanna Lim LPN Unavailable +[phone] Dexter Hines MD Primary Care Provider +[phone] Jessica Jerez Primary Care Provider + [phone] Dexter Hines MD Primary Care Provider +[phone] Kaitlin Patterson MD Unavailable [phone] Dylon Cruz MD Unavailable [phone] Dylon Cruz MD Unavailable [phone] Dexter Hines MD Primary Care Provider +[phone] Andriy Herndon MD PhD Unavailable +[phone] Eder Jaffe MD Unavailable [phone] Wagner Villatoro MD Unavailable [phone] Fazal Baird MD Unavailable [phone] Fazal Cordero MD Primary Care Provider Hayden Miller DO Primary Care Provider +[phone] Christopher Dubon MD Unavailable + [phone] Wagner Villatoro MD Unavailable [phone] Eder Jaffe MD Unavailable [phone] Andriy Herndon MD PhD Unavailable Clifton De MD Unavailable Jacob Ko MD Unavailable +[phone] Encounter Details Date Type Department Care Team (Latest Contact Info) Description 06/02/2016 Orders Only [facility] CLINCONV ProviderBairon MD [address] [place] [address] Social History Tobacco Use Types Packs/Day [...] Priority Date/Time Associated Diagnosis Comments CARDIOLOGY REPORT 06/14/2016 12: 00 AM CDT CARDIOLOGY REPORT 06/14/2016 12: 00 AM CDT documented in this encounter Results * CARDIOLOGY REPORT (06/14/2016 12:00 AM CDT) Anatomical Region Laterality Modality Other Narrative 06/14/2016 12:00 AM CDT Ordered by an unspecified provider. Historical Provider CV [facility] PROCE ISAIAS Final Result * CARDIOLOGY REPORT (06/14/2016 12:00 AM CDT) Anatomical Region Laterality Modality Other Narrative 06/14/2016 12:00 AM CDT Ordered by an unspecified [...] documented as of this encounter Care Teams Light Oil Operator Relationship Specialty Start Date End Date Jessica Jerez PA [address] [place] [address] PCP - General Critical Care Med 07/06/18 11/21/18 Dexter Hines MD [address] [place] [address] PCP - General 11/22/18 12/21/18 Jessica Jerez PA [address] [place] [address] PCP - General Critical Care Med 12/22/18 01/22/19 Dexter Hines MD [address] [place] [address] PCP - General Internal Medicine 01/23/19 07/04/19 Dexter Hines MD [address] [place] [address] PCP - General 07/28/19 04/22/22 Fazal Cordero MD [address] [facility] [place] [address] PCP - General Orthopedic Surgery 04/23/22 05/05/22 Hayden Miller DO [address] [facility] [place] [address] PCP - General Family Medicine 05/06/22 Yoanna Lim, LAI [address] [place] [address] [address] [place] [address] Stallion Keeper 07/06/18 07/06/18 Kaitlin Patterson MD [address] [place] [address] Supervisory It Specialist Interventional Cardiology 05/22/19 08/11/23 Dylon Cruz MD [address] [place] [address] Lot Porter Medical Oncology 06/27/19 10/14/21 Dylon Cruz MD [address] [place] [address] Medical Oncologist/Hematologis t Medical Oncology 06/27/19 10/14/21 Andriy Herndon MD PhD [address] [place] [address] MEDICAL ONCOLOGY, [address] [address] Consulting Physician Medical Oncology 10/15/21 4 Eder Jaffe MD [address] [facility] [address] [place] [address] Consulting Physician Pulmonary Disease 10/15/21 Wagner Villatoro MD [address] [facility] [address] [place] [address] Radiation Oncologist Radiation Oncology 10/21/21 Fazal Baird MD 9 [place] [address] Consulting Physician Cardiothoracic Surgery 10/21/21 Christopher Dubon MD [address] [facility] [address] [place] [address] Consulting Physician Cardiology 08/12/23 Wagner Villatoro MD [address] [place] [address] Radiation Oncologist Radiation Oncology 10/25/23 Eder Jaffe MD [address] [facility] [address] MARTIN [address] [place] [address] Surgeon Pulmonary Disease 01/10/24 Andriy Herndon MD PhD [address] [place] [address] Consulting Physician Medical Oncology 05/22/24 Clifton De MD [address] [place] [address] Consulting Physician Pain Management 05/25/24 Jacob Ko MD [address] [facility] [address]ART[address] [address] Consulting Physician Cardiology 05/25/24 documented as of this encounter
--- OUTSIDE RECORDS SUMMARY | 2024-10-24 09:43 | XMS_ITS | Encounter Summary ---
Author Organization [facility] Facility Care Team Providers Care Business Performance Manager Name Role Phone Jessica Jerez Primary Care Provider + [phone] Yoanna Lim LPN Unavailable +[phone] Dexter Hines MD Primary Care Provider +[phone] Jessica Jerez Primary Care Provider + [phone] Dexter Hines MD Primary Care Provider +[phone] Kaitlin Patterson MD Unavailable [phone] Dylon Cruz MD Unavailable [phone] Dylon Cruz MD Unavailable [phone] Dexter Hines MD Primary Care Provider +[phone] Andriy Herndon MD PhD Unavailable +[phone] Eder Jaffe MD Unavailable [phone] Wagner Villatoro MD Unavailable [phone] Fazal Baird MD Unavailable [phone] Fazal Cordero MD Primary Care Provider Hayden Miller DO Primary Care Provider +[phone] Christopher Dubon MD Unavailable + [phone] Wagner Villatoro MD Unavailable [phone] Eder Jaffe MD Unavailable Andriy Herndon MD PhD Unavailable Clifton De MD Unavailable Jacob Ko MD Unavailable +[phone] Encounter Details Date Type Department Care Team (Latest Contact Info) Description 02/27/2016 Orders Only [facility] CLINCONV ProviderBairon MD [address] [place] [address] Social History Tobacco Use Types Packs/Day [...] Priority Date/Time Associated Diagnosis Comments CARDIOLOGY REPORT 03/04/2016 12: 00 AM CDT documented in this encounter Results * CARDIOLOGY REPORT (03/04/2016 12:00 AM CDT) Anatomical Region Laterality Modality Other Narrative 03/04/2016 12:00 AM CDT Ordered by an unspecified [...] documented as of this encounter Care Teams Business Performance Manager Relationship Specialty Start Date End Date Jessica Jerez PA [address] [place] [address] PCP - General Critical Care Med 07/06/18 11/21/18 Dexter Hines MD [address] [place] [address] PCP - General 11/22/18 12/21/18 Jessica Jerez PA [address] [place] [address] PCP - General Critical Care Med 12/22/18 01/22/19 Dexter Hines MD [address] [place] [address] PCP - General Internal Medicine 01/23/19 07/04/19 Dexter Hines MD [address] [place] [address] PCP - General 07/28/19 04/22/22 Fazal Cordero MD [address] [facility] [address] PCP - General Orthopedic Surgery 04/23/22 05/05/22 Hayden Miller DO [address] [facility] [place] [address] PCP - General Family Medicine 05/06/22 Yoanna Lim, BOSOM PRESSER [address] [place] [address] [address] [place] [address] Electrical Prospecting Engineer 07/06/18 07/06/18 Kaitlin Patterson MD [address] [place] [address] Blind Stitch Machine Operator Interventional Cardiology 05/22/19 08/11/23 Dylon Cruz MD [address] [place] [address] Automobile Insurance Claim Examiner Medical Oncology 06/27/19 10/14/21 Dylno Cruz MD [address] [place] [address] Medical Oncologist/Hematologis t Medical Oncology 06/27/19 10/14/21 Andriy Herndon MD PhD [address] [place] [address] MEDICAL ONCOLOGY, [address] [address] Consulting Physician Medical Oncology 10/15/21 4 Eder Jaffe MD [address] [facility] [address] [place] [address] Consulting Physician Pulmonary Disease 10/15/21 Wagner Villatoro MD [facility] [address] JAMES [address] [place] [address] Radiation Oncologist Radiation Oncology 10/21/21 Fazal Baird MD 9 [place] [address] Consulting Physician Cardiothoracic Surgery 10/21/21 Christopher Dubon MD [address] [facility] [address] [address] Consulting Physician Cardiology 08/12/23 Wagner Villatoro MD [address] [place] [address] Radiation Oncologist Radiation Oncology 10/25/23 Eder Jaffe MD [address] [facility] [address] [place] [address] Surgeon Pulmonary Disease 01/10/24 Andriy Herndon MD PhD [address] [place] [id number] Consulting Physician Medical Oncology 05/22/24 Clifton De MD [address] [place] [address] [phone] Consulting Physician Pain Management 05/25/24 Jacob Ko MD [address] [facility] [address] [address] Consulting Physician Cardiology 05/25/24 documented as of this encounter
--- OUTSIDE RECORDS SUMMARY | 2024-10-24 09:43 | XMS_ITS | Encounter Summary ---
Author Organization [facility] Address [address] [place] [address] Care Team Providers Care Is Technician Name Role Phone Kaitlin Patterson MD Unavailable Dexter Hines MD Primary Care Provider [phone] Andriy Herndon MD PhD Unavailable [phone] Eder Jaffe MD Unavailable [phone] Wagner Villatoro MD Unavailable [phone] Fazal Baird MD Unavailable [phone] Fazal Cordero MD Primary Care Provider Hayden Miller DO Primary Care Provider [phone] Christopher Dubon MD Unavailable + [phone] Wagner Villatoro MD Unavailable [phone] Eder Jaffe MD Unavailable [phone] Andriy Herndon MD PhD Unavailable [phone] Clifton De MD Unavailable Jacob Ko MD Unavailable [phone] Encounter Details Date Type Department Care Team (Late st Contact Info) Description 04/07/2022 Telephone [facility] [address] [place] [address] Herve Capps MD [address] [place] [address] Social History Tobacco Use Types Packs/Day Years [...] admitted to C. Aur[facility] ring surveillance room. 07/12/24 negative C. Auris result. ML 07/07/2024 07/07/2024 07/12/2024 1:[address] documented as of this encounter Care Teams Is Technician Relationship Specialty Start Date End Date Dexter Hines MD [address] [place] [address] PCP - General 07/28/19 04/22/22 Fazal Cordero MD [address] [facility] [address] PCP - General Orthopedic Surgery 04/23/22 05/05/22 Hayden Miller DO [address] [facility] 6A/6B/12A [place] [address] PCP - General Family Medicine 05/06/22 Kaitlin Patterson MD Rugby League Footballer Interventional Cardiology 05/22/19 Andriy Herndon MD PhD [address] [place] [address] MEDICAL ONCOLOGY, [address] [address] Consulting Physician Medical Oncology 10/15/21 4 Eder Jaffe MD [address] [facility] [address] [place] [address] Consulting Physician Pulmonary Disease 10/15/21 Wagner Villatoro MD [facility] [address] [place] [id number] Radiation Oncologist Radiation Oncology 10/21/21 Fazal Baird MD 9 [place] [address] Consulting Physician Cardiothoracic Surgery 10/21/21 Christopher Dubon MD [address] [facility] [address] [address] Consulting Physician Cardiology 08/12/23 Wagner Villatoro MD [address] [place] [address] Radiation Oncologist Radiation Oncology 10/25/23 Eder Jaffe MD [address] [facility] [address] [place] [address] Surgeon Pulmonary Disease 01/10/24 Andriy Herndon MD PhD [address] [place] [address] Consulting Physician Medical Oncology 05/22/24 Clifton De MD [address] [place] [address] Consulting Physician Pain Management 05/25/24 Jacob Ko MD [address] [facility] [address] [address] Consulting Physician Cardiology 05/25/24 documented as of this encounter
--- OUTSIDE RECORDS SUMMARY | 2024-10-24 09:43 | XMS_ITS | Encounter Summary ---
Author Organization [facility] Facility Care Team Providers Care Associate Professor Of Psychology Name Role Phone Jessica Jerez Primary Care Provider + [phone] Yoanna Lim LPN Unavailable +[phone] Dexter Hines MD Primary Care Provider +[phone] Jessica Jerez Primary Care Provider + [address] Dexter Hines MD Primary Care Provider +[phone] Kaitlin Patterson MD Unavailable [phone] Dylon Cruz MD Unavailable [phone] Dylon Cruz MD Unavailable [phone] Dexter Hines MD Primary Care Provider +[phone] Andriy Herndon MD PhD Unavailable +[phone] Eder Jaffe MD Unavailable [phone] Wagner Villatoro MD Unavailable [phone] Fazal Baird MD Unavailable [phone] Fazal Cordero MD Primary Care Provider Hayden Miller DO Primary Care Provider +[phone] Christopher Dubon MD Unavailable + [phone] Wagner Villatoro MD Unavailable [phone] Eder Jaffe MD Unavailable Andriy Herndon MD PhD Unavailable Clifton De MD Unavailable Jacob Ko MD Unavailable +[phone] Encounter Details Date Type Department Care Team (Latest Contact Info) Description 02/06/2016 Orders Only [facility] CLINCONV ProviderBairon MD [address] [place] [address] Social History Tobacco Use Types Packs/Day [...] Priority Date/Time Associated Diagnosis Comments CARDIOLOGY REPORT 02/06/2016 12: 00 AM CDT documented in this encounter Results * CARDIOLOGY REPORT (02/06/2016 12:00 AM CDT) Anatomical Region Laterality Modality Other Narrative 02/06/2016 12:00 AM CDT Ordered by an unspecified [...] documented as of this encounter Care Teams Associate Professor Of Psychology Relationship Specialty Start Date End Date Jessica Jerez PA [address] [place] [address] PCP - General Critical Care Med 07/06/18 11/21/18 Dexter Hines MD [address] [place] [address] PCP - General 11/22/18 12/21/18 Jessica Jerez PA [address] [place] [address] PCP - General Critical Care Med 12/22/18 01/22/19 Dexter Hines MD [address] [place] [address] PCP - General Internal Medicine 01/23/19 07/04/19 Dexter Hines MD [address] [place] [address] PCP - General 07/28/19 04/22/22 Fazal Cordero MD [address] [facility] [address] PCP - General Orthopedic Surgery 04/23/22 05/05/22 Hayden Miller DO [address] [facility] [address] PCP - General Family Medicine 05/06/22 Yoanna Lim, SPANISH PROFESSOR [address] [place] [address] [address] [place] [address] Benefits Manager 07/06/18 07/06/18 Kaitlin Patterson MD [address] [place] [address] Spray Drier Operator Interventional Cardiology 05/22/19 08/11/23 Dylon Cruz MD [address] [place] [address] Marketing Support Coordinator Medical Oncology 06/27/19 10/14/21 Dylon Cruz MD [address] [place] [address] Medical Oncologist/Hematologis t Medical Oncology 06/27/19 10/14/21 Andriy Herndon MD PhD [address] [place] [address] MEDICAL ONCOLOGY, [address] [address] Consulting Physician Medical Oncology 10/15/21 4 Eder Jaffe MD [address] [facility] [address] [place] [address] Consulting Physician Pulmonary Disease 10/15/21 Wagner Villatoro MD [facility] [address] [place] [address] Radiation Oncologist Radiation Oncology 10/21/21 Fazal Baird MD 9 [place] [address] Consulting Physician Cardiothoracic Surgery 10/21/21 Christopher Dubon MD [address] [facility] [address] [address] Consulting Physician Cardiology 08/12/23 Wagner Villatoro MD [address] [place] [address] Radiation Oncologist Radiation Oncology 10/25/23 Eder Jaffe MD [address] [facility] [address] [place] [address] Surgeon Pulmonary Disease 01/10/24 Andriy Herndon MD PhD [address] [place] [address] [id number] Consulting Physician Medical Oncology 05/22/24 Clifton De MD [address] [place] [id number] Consulting Physician Pain Management 05/25/24 Jacob Ko MD [address] [facility] [address] [address] Consulting Physician Cardiology 05/25/24 documented as of this encounter
[2024-10-24 10:30] LABS: Hematocrit 42.8 % (37.0-47.0); Hemoglobin 13.9 g/dL (12.0-15.0); Mean Corpuscular HGB Conc 32.5 g/dl (32-36); Mean Corpuscular Hemoglobin 31.7 pg (26-34); Mean Corpuscular Volume 97.7 fl (80-100); Mean Platelet Volume 12.9 fl (7.4-10.4); Platelet Count Result 198 k/mm3 (150-375); Red Blood Count 4.38 M/mm3 (4.2-5.4); Red Cell Distribution Width 14.7 % (11.5-14.5); White Blood Count 10.1 K/mm3 (4.5-10.0)
[2024-10-24 10:31] LABS: Alanine Aminotransferase 13 U/L (6-35); Albumin Level 3.9 g/dL (3.5-5.1); Alkaline Phosphatase 124 U/L (38-126); Anion Gap 7 mmol/L (4-12); Aspartate Amino Transferase 19 U/L (14-36); Bilirubin,Total 0.4 mg/dL (0.2-1.3); Blood Urea Nitrogen 26 mg/dL (7-17); Calcium 9.4 mg/dL (8.4-10.2); Carbon Dioxide 30 mmol/L (22-30); Chloride 104 mmol/L (98-107); Cholesterol 212 mg/dL (0-200); Estimated Glomerular Filt Rate 53; Glucose 89 mg/dL (65-110); HDL Direct 47 mg/dL; Potassium 4.4 mmol/L (3.4-5.0); Sodium 141 mmol/L (137-145); Triglycerides 130 mg/dL (<150)
[2024-10-24 10:41] LABS: LDL Cholesterol Direct 126 mg/dL
[2024-10-24 13:07] LABS: Hemoglobin A1C 6.5 % (<5.7)
[2024-10-24 21:09] LABS: Free T4 Free Thyroxine 1.47 ng/dL (0.78-2.19); Vitamin D 25 Hydroxy 60.7 ng/mL
[2024-10-24 21:16] LABS: Creatinine Urine 95.1 mg/dL
[2024-10-24 21:17] LABS: MALB Creatinine Ratio 193.8 mg/g (0-30); Microalbumin Urine Random 184.3 mg/L (0-16.7)
== END 2024-10-24 09:02 | disposition home or self-care (01) ==
PROVIDERS: PCP Nurse Practitioner; Visit Provider Nurse Practitioner
DX: E05.90 Thyrotoxicosis, unspecified without thyrotoxic crisis or storm (principal); E11.9 Type 2 diabetes mellitus without complications; R79.89 Other specified abnormal findings of blood chemistry; E55.9 Vitamin D deficiency, unspecified
CPT/HCPCS: 36415; 80053; 80061; 82043; 82306; 83036; 84439; 84443; 85027